=== PATIENT | female | born 1955 | race Caucasian/White ===

== ENCOUNTER 2017-09-16 11:19 | Outpatient (RCR) | payer MEDICARE, MEDICAID, SELFPAY | END 2017-10-16 | LOC: INF 11:19 | PROVIDERS: PCP Nurse Practitioner Family; Visit Provider Internal Medicine | DX: D50.9 Iron deficiency anemia, unspecified (principal) | CPT/HCPCS: 96365; 96366; J1756 ==

== ENCOUNTER 2017-12-24 13:51 | Outpatient (REF) | payer MEDICARE, MEDICAID, SELFPAY ==
[2017-12-24 19:04] LABS: Abs Immature Grans 0.01 k/cumm (0.0-0.09); Absolute Basophil Count 0.05 k/cumm (0.0-0.2); Absolute Eosinophil Count 0.14 k/cumm (0.0-0.7); Absolute Lymphocyte Count 2.21 k/cumm (1.2-3.4); Absolute Neutrophil Count 4.32 k/cumm (1.2-6.7); Basophils % 0.7; Eosinophils % 1.9; HCT 43.9 % (36.0-46.0); HGB 14.7 g/dL (12.0-15.5); Immature Grans % 0.1; Lymphocytes % 30.2; Mean Corp. HGB Concentration 33.5 g/dL (32.0-36.0); Mean Corpuscular Hemoglobin 30.5 pg (27.0-33.0); Mean Corpuscular Volume 91.1 fL (80-95); Monocytes % 8.2; Neutrophils % 58.9; Platelet Count 365 x1000/uL (130-400); RBC 4.82 m/cumm (4.00-5.20); White Blood Cell Count 7.33 k/cumm (4.4-10.8)
[2017-12-24 19:21] LABS: Iron 71 ug/dL (50-175); Total Iron Binding Capacity 391 ug/dL (250-450); Transferrin Sat 18 % (15-50)
== END 2017-12-24 14:11 ==
LOC: NCHCN 13:51
PROVIDERS: PCP Nurse Practitioner Family; Visit Provider Nurse Practitioner Family
DX: D64.9 Anemia, unspecified (principal); R71.8 Other abnormality of red blood cells
CPT/HCPCS: 83540; 83550; 85025

== ENCOUNTER 2018-03-25 16:12 | Outpatient (REF) | payer MEDICARE, MEDICAID, SELFPAY ==
[2018-03-25 18:19] LABS: Iron 32 ug/dL (50-175); Total Iron Binding Capacity 464 ug/dL (250-450); Transferrin Sat 7 % (15-50)
[2018-03-25 18:26] LABS: Abs Immature Grans 0.01 k/cumm (0.0-0.09); Absolute Basophil Count 0.04 k/cumm (0.0-0.2); Absolute Eosinophil Count 0.13 k/cumm (0.0-0.7); Absolute Lymphocyte Count 2.39 k/cumm (1.2-3.4); Absolute Monocyte Count 0.87 k/cumm (0.11-0.7); Absolute Neutrophil Count 4.89 k/cumm (1.2-6.7); Basophils % 0.5; Eosinophils % 1.6; HCT 38.9 % (36.0-46.0); HGB 12.2 g/dL (12.0-15.5); Immature Grans % 0.1; Lymphocytes % 28.7; Mean Corp. HGB Concentration 31.4 g/dL (32.0-36.0); Mean Corpuscular Hemoglobin 28.3 pg (27.0-33.0); Mean Corpuscular Volume 90.3 fL (80-95); Mean Platelet Volume 10.1 fL (8.0-11.0); Monocytes % 10.4; Neutrophils % 58.7; Platelet Count 411 x1000/uL (130-400); RBC 4.31 m/cumm (4.00-5.20); RBC Distribution Width 13.6 % (11.7-14.6); White Blood Cell Count 8.33 k/cumm (4.4-10.8)
[2018-03-25 18:33] LABS: Ferritin 9 ng/mL (8-388)
== END 2018-03-25 16:32 ==
LOC: NCHCN 16:12
PROVIDERS: PCP Nurse Practitioner Family; Visit Provider Nurse Practitioner Family
DX: D64.9 Anemia, unspecified (principal)
CPT/HCPCS: 82728; 83540; 83550; 85025

== ENCOUNTER 2018-04-13 13:37 | Outpatient (CLI) | payer MEDICARE, MEDICAID, SELFPAY ==
--- NOTE | 2018-04-13 13:36 | DI.RAD_ITS ---
SYMPTOMS/DIAGNOSIS: SHORTNESS OF BREATH, R06.02 CHEST X-RAY, PA AND LATERAL: Comparison is 02/03/17. The heart size and pulmonary vasculature are within normal limits. There is a hiatal hernia present. The lungs are clear. No effusions or pneumothoraces are identified. Mild degenerative changes are seen in the spine. IMPRESSION: No acute pulmonary process.
== END 2018-04-13 13:57 ==
PROVIDERS: PCP Nurse Practitioner Family; Visit Provider Nurse Practitioner Family
DX: R06.02 Shortness of breath (principal); K44.9 Diaphragmatic hernia without obstruction or gangrene
CPT/HCPCS: 71046

== ENCOUNTER 2018-04-19 01:09 | Outpatient (CLI) | payer MEDICARE, MEDICAID, SELFPAY ==
--- NOTE | 2018-04-19 15:32 | DI.MAMMO_ITS ---
SYMPTOM/DIAGNOSIS: SCREENING, Z12.39 MAMMOGRAMS: Mammograms were interpreted according to the usual protocol including computer analysis with CAD system, tomosynthesis and C view imaging. Comparison is made with 2017. The breasts are composed of heterogeneously dense fibroglandular tissue, breast density, Category C. A biopsy marker clip is seen in the medial right breast. No suspicious masses or suspicious microcalcifications are seen. There has been no significant change. IMPRESSION: Category 1, negative mammogram. Yearly screening mammography is recommended. [facility] ASSESSMENT OF FINDINGS: Negative. Category 1. Patient will receive a letter notifying them of these results. Bi-RADS category C. The breasts are heterogeneously dense, which may obscure small masses.
== END 2018-04-19 01:29 ==
PROVIDERS: PCP Nurse Practitioner Family; Visit Provider Nurse Practitioner Family
DX: Z12.31 Encounter for screening mammogram for malignant neoplasm of breast (principal)
CPT/HCPCS: 77063; 77067

== ENCOUNTER 2018-05-04 01:41 | Outpatient (RCR) | payer MEDICARE, MEDICAID, SELFPAY ==
[2018-04-20] MEDS: Normal Saline Flush 10 ML SYR IVP (11:42)
[2018-04-27] MEDS: Normal Saline Flush 10 ML SYR IVP (12:12)
[2018-05-04] MEDS: Normal Saline Flush 10 ML SYR IVP (12:03)
== END 2018-05-16 23:59 | disposition home or self-care (01) ==
LOC: INF 01:41
PROVIDERS: PCP Nurse Practitioner Family; Visit Provider Internal Medicine
DX: D50.9 Iron deficiency anemia, unspecified (principal)
CPT/HCPCS: 96365; 96366; J1756

== ENCOUNTER 2018-06-07 00:32 | Outpatient (CLI) | payer MEDICARE, MEDICAID, SELFPAY ==
--- NOTE | 2018-06-07 10:22 | DI.CT_ITS ---
SYMPTOM/DIAGNOSIS:HIATAL HERNIA, RECENT PNEUMONIA, PREOP FOR HERNIA REPAIR, IRON DEFICIENCY DUE TO BLOOD LOSS, D50.0,K21.9,K44.9 CHEST/ABDOMEN CT: There are no prior comparison exams. Images were performed from the clavicles through the aortic bifurcation after IV and oral contrast. There is a moderate sized hiatal hernia with approximately one third of the fundus of the stomach extending above the diaphragm. The heart size is normal. No pleural or pericardial effusions or adenopathy is seen. There are vague ground glass opacities seen mainly in the right upper and middle lobes which could represent residual pneumonia. No areas of consolidation or atelectasis is seen. No suspicious masses are identified. There is mild atelectasis in the left lower lobe medially. The liver, gallbladder, spleen, pancreas, adrenals and kidneys are unremarkable. There is a small amount of fat at the umbilicus. There is moderate to increased stool in the colon. No bowel dilatation or ascites is seen. There are degenerative changes in the mid thoracic spine. IMPRESSION: 1. Moderate sized hiatal hernia. 2. Ground glass opacities mainly in the right upper and middle lobes may represent residual pneumonitis.
[2018-06-07] MEDS: Omnipaque 350 MG/ML 100 ML BTL IJ (10:24)
== END 2018-06-07 00:52 ==
PROVIDERS: PCP Nurse Practitioner Family; Visit Provider Thoracic Surgery (Cardiothoracic Vascular Surgery)
DX: K44.9 Diaphragmatic hernia without obstruction or gangrene (principal); D50.0 Iron deficiency anemia secondary to blood loss (chronic); J18.9 Pneumonia, unspecified organism; J98.4 Other disorders of lung
CPT/HCPCS: 71260; 74160; J3490

== ENCOUNTER 2018-12-05 21:14 | Observation (INO) | payer MEDICARE, MEDICAID, SELFPAY ==
[2018-12-05 21:17] VITALS: BP 154/112; PULSE 122; RESP 18; TEMP 37.2; O2SAT 94
[2018-12-05 21:41] LABS: Abs Immature Grans 0.06 k/cumm (0.0-0.09); Absolute Basophil Count 0.03 k/cumm (0.0-0.2); Absolute Eosinophil Count 0.07 k/cumm (0.0-0.7); Absolute Monocyte Count 1.01 k/cumm (0.11-0.7); Absolute Neutrophil Count 13.95 k/cumm (1.2-6.7); Basophils % 0.2; Eosinophils % 0.4; HCT 43.1 % (36.0-46.0); HGB 14.8 g/dL (12.0-15.5); Immature Grans % 0.4; Mean Corp. HGB Concentration 34.3 g/dL (32.0-36.0); Mean Corpuscular Hemoglobin 31.2 pg (27.0-33.0); Mean Corpuscular Volume 90.9 fL (80-95); Mean Platelet Volume 9.2 fL (8.0-11.0); Monocytes % 6.1; Neutrophils % 83.9; Platelet Count 348 x1000/uL (130-400); RBC 4.74 m/cumm (4.00-5.20); White Blood Cell Count 16.63 k/cumm (4.4-10.8)
[2018-12-05 21:54] LABS: ALT 22 U/L (14-59); AST 17 U/L (15-37); Albumin 4.4 g/dL (3.4-5.0); Alkaline Phosphatase 145 U/L (46-116); Anion Gap 11.6 mmol/L (3-11); BUN 15 mg/dL (7-18); Bilirubin, Total 0.7 mg/dL (0.2-1.0); CO2 26.4 mmol/L (21.0-32.0); CREATININE 1.27 mg/dL (0.55-1.02); Calcium 9.8 mg/dL (8.5-10.1); Chloride 98 mmol/L (98-107); Estimated GFR 42.23 (mL/min/1.73m2); Glucose 154 mg/dL (70-100); Lipase 78 U/L (73-393); Potassium 3.7 mmol/L (3.5-5.1); Sodium 136 mmol/L (136-145); Total Protein 8.6 g/dL (6.4-8.2)
[2018-12-05 21:57] LABS: Troponin I < 0.05 ng/mL (0.00-0.06)
--- NOTE | 2018-12-05 21:59 | ED.GENADUL_ITS ---
Discharge Plan Disposition Patient Disposition: [facility] INPATIENT Condition: Improving Discharge Details Chief Complaint: Abd Prob Clinical Impression: Acute vomiting, Dehydration, Acute kidney injury Admit Date/Time: 12/06/18 00:38 Admit Provider: Papito Sandoval Attending Provider: Papito Sandoval Primary Care Provider: Diane Mendez ED Provider: Jessica Delgado Discharge Data Discharge Date/Time-TO BE ENTERED AT DEPARTURE: 12/06/18 01:20 Medical Decision Making This very pleasant 63-year-old woman who presents for complaints of nausea and dry heaving for the last 3 days having difficulty holding down food and fluids. Patient reports in June she had a hiatal hernia repair in addition to a distal stomach dilation for nausea and vomiting complaints. Patient reports this is different than her nausea and vomiting she experienced prior to surgery where as she was vomiting significant bilious vomitus. In the last 3 days she has been primarily dry heaving and having nausea. Patient does report mild chills and flushed sensation but no measured fever. Patient denies any identifiable pain in her chest or abdomen. Denies back pain, dizziness. Patient does report mild constipation for the last 3 days which is atypical compared to her regular daily bowel movements. Patient has taken to doses of Zofran today without relief of nausea. Patient was provided Reglan for nausea IV as well as IV fluid as she does appear quite dry on exam. Patient has mild upper abdominal pain with palpation but no obvious peritoneal signs associated. CT scan ordered as well as lab work. Urinalysis ordered, troponins ordered. Initial EKG reveals a sinus rhythm with a rate of [address] segment changes. This was reviewed with my attending Dr. Young. Initial troponin negative. Feel cardiac cause of her pain is unlikely as she has no typical cardiac symptoms at this time. Patient CT scan ultimately reveals moderate to severe left hydronephrosis with decreased enhancement compared to the contralateral kidney, patient does have a change in her baseline kidney function. Creatinine has increased from 0.85 to 1.27, GFR greater than 60 has decreased to 42. Patient has no significant postvoid residual on bladder scanning. Urinalysis unremarkable for any acute infection. Possibly patient's kidney changes are secondary to dehydration in the last 3 days resulting in acute kidney injury. CT also reveals hiatal hernia present. Patient did have a moderate-sized hiatal hernia on previous CT which was repaired in June. Patient is somewhat concerned that the vomiting in the last 3 days has increased her hiatal hernia which was previously repaired. Patient does feel significantly improved after Reglan. She did receive 2 L of IV fluid. Discussed admission to the hospital for concern of acute kidney injury, dehydration and hydronephrosis versus outpatient follow-up for findings given she has improved. Patient's preference is admission to the hospital at this time which I do not feel is unreasonable to monitor kidney function. Spoke with the hospitalist will accept patient's admission for observation overnight. HPI General Date/Time Provider Initiated Documentation: 12/05/18 21:16 . HPI Narrative: This is 63-year-old patient who is very pleasant complaining of nausea for the last 3 days which is been intermittent. She does have a prescription for Zofran which she is been using twice daily without relief of her nausea. Patient also trying [id number] medication without relief. Reports mild headache without dizziness. History of migraines. She does report mild flushing and chills denies measured fever. Patient does report when she attempts to eat and drink she does have dry heaving episodes but denies bilious vomitus. Reports having difficulty holding any food down for the last 3 days. Feeling dehydrated. Patient denies chest pain. She does report mild shortness of breath when laying up. Denies back pain. Denies abdominal pain. Patient does report mild constipation and decrease in bowel movements in the last 3 days. She does admit to small hard stools 3 days ago. Denies abdominal distention. Denies urinary urgency, frequency or dysuria. Patient reports similar episodes of 3 to 4 days of nausea which was similar but resolved on its own without any intervention was never evaluated. Related Data Home Medications Medication Instructions Recorded Confirmed Atorvastatin Calcium 20 mg PO HS tab-cap 12/17/16 12/06/18 Multi-Day Plus Minerals 1 ea PO DAILY 12/17/16 12/06/18 buspirone 20 mg PO HS tab-cap 12/17/16 12/06/18 calcium carbonate-vitamin D3 1 ea PO DAILY 12/17/16 12/06/18 [Calcium 500 + D] clonazepam 1 mg PO BID tab-cap 12/17/16 12/06/18 glucosam-chond im-izofmr-il ac 1 ea PO DAILY 12/17/16 12/06/18 olanzapine 10 mg PO HS tab-cap 12/17/16 12/06/18 omega-3 fatty acids-fish oil 1 ea PO DAILY 12/17/16 12/06/18 venlafaxine 225 mg PO HS tab-cap 12/17/16 12/06/18 amitriptyline 20 mg PO HS 02/03/17 12/06/18 cyclobenzaprine 10 mg PO TID PRN #8 tab 02/19/17 12/06/18 ondansetron 4 mg PO Q8H PRN 12/06/18 12/06/18 Previous Rx's Medication Instructions Recorded cyclobenzaprine 10 mg PO TID PRN #8 tab 02/19/17 Allergies Allergy/AdvReac Type Severity Reaction Status Date / Time trazodone AdvReac Mild WIRED Unverified 12/05/18 22:01 General Stated Complaint: Abd Prob EBONY: 3 Review of Systems Review of Systems ROS Unobtainable: All systems reviewed & are unremarkable except as noted in HPI and below Constitutional Constitutional: Reports chills, Denies headache(s) and Reports poor appetite ENT Ears, Nose, Mouth, and Throat: Denies headache(s) Cardiovascular Cardiovascular: Denies dyspnea Respiratory Respiratory: Denies cough, Denies pain with cough, Denies dyspnea and Denies wheezing Gastrointestinal Gastrointestinal: Denies abdominal pain, Denies bloating, Reports constipation, Denies excessive flatus, Denies diarrhea, Reports nausea and Reports vomiting Genitourinary Genitourinary: Denies urinary frequency, Denies dysuria and Denies urinary urgency Neurologic Neurologic: Denies headache(s) Allergic/Immunologic Allergic/Immunologic: Denies wheezing [facility] History Anemia Anxiety Benign tumor of pituitary gland Chronic vomiting Depression GERD (gastroesophageal reflux disease) Grief reaction History of hepatitis History of HPV infection History of Lyme disease Hyperlipidemia Joint pain Low back pain Neck pain PTSD (post-traumatic stress disorder) Shortness of breath Surgical History EGD - MAC (01/13/17) Social History Smoking/Tobacco Use Status: Former Tobacco Use Alcohol Intake: current Alcohol Intake frequency: holidays/special occasions only Alcohol type: beer Drug use: Never Substance use type: does not use Do you feel safe at home: Yes Do you feel safe in your relationship?: Yes Exam Narrative Exam Narrative: CONST: Healthy appearing patient, in no acute distress. Dry mucous membranes. Alert and alert. CHEST: Normal insepection of the chest. RESP: Normal respiratory effort. Speaking full sentences. No cough. No audible wheezing. No retractions. Breath sounds equal and full bilaterally. No rhonchi, rales or wheezing. CARDIO: No JVD. No murmurs or rubs. Regular rate and rhythm. Abdomen; abdomen is soft. Bowel sounds present in all 4 quadrants mild left upper quadrant tenderness. No obvious rebound or guarding. No peritoneal signs. Back; no CVA tenderness bilaterally NEURO: Alert and awake. Speech clear. PSYCH: Normal affect. Cooperative. Course Vital Signs Vital signs: Vital Signs Temperature 37.2 C 12/05/18 21:17 Pulse 122 H 12/05/18 21:17 Respiratory Rate 18 12/05/18 21:17 Blood Pressure 154/112 H 12/05/18 21:17 Pulse Oximetry 94 L 12/05/18 21:17 Temperature 37.2 C 12/05/18 21:17 Temperature Source Skin 12/05/18 21:17 Pulse 122 H 12/05/18 21:17 Respiratory Rate 18 12/05/18 21:17 Blood Pressure 154/112 H 12/05/18 21:17 Blood Pressure Position Sitting 12/05/18 21:17 Pulse Oximetry 94 L 12/05/18 21:17 Oxygen Delivery Method Room Air 12/05/18 21:17 Oxygen Flow Rate 0 12/05/18 21:17 Pain Level 1 12/05/18 21:17 Comment 12/05/18 21:17 Lab/Test Results Lab/Test Results: Laboratory Tests Range/Units 12/05/18 12/05/18 12/05/18 21:35 21:35 21:35 WBC (4.4-10.8) k/cumm 16.63 H RBC (4.00-5.20) m/cumm 4.74 Hgb (12.0-15.5) g/dL 14.8 Hct (36.0-46.0) % 43.1 MCV (80-95) fL 90.9 MCH (27.0-33.0) pg 31.2 MCHC (32.0-36.0) g/dL 34.3 RDW (11.7-14.6) % 13.0 Plt Count (130-400) x1000/uL 348 MPV (8.0-11.0) fL 9.2 Immature Gran % 0.4 Neutrophils % 83.9 Lymphocytes % 9.0 Monocytes % 6.1 Eosinophils % 0.4 Basophils % 0.2 Absolute Neutrophils (1.2-6.7) k/cumm 13.95 H Absolute Lymphocytes (1.2-3.4) k/cumm 1.50 Absolute Monocytes (0.11-0.7) k/cumm 1.01 H Absolute Eosinophils (0.0-0.7) k/cumm 0.07 Absolute Basophils (0.0-0.2) k/cumm 0.03 Sodium (136-145) mmol/L 136 Potassium (3.5-5.1) mmol/L 3.7 Chloride (98-107) mmol/L 98 Carbon Dioxide (21.0-32.0) mmol/L 26.4 Anion Gap (3-11) mmol/L 11.6 H BUN (7-18) mg/dL 15 Creatinine (0.55-1.02) mg/dL 1.27 H Estimated GFR/1.73 m2 (mL/min/1.73m2) 42.23 Glucose (70-100) mg/dL 154 H Calcium (8.5-10.1) mg/dL 9.8 Total Bilirubin (0.2-1.0) mg/dL 0.7 AST (15-37) U/L 17 ALT (14-59) U/L 22 Alkaline Phosphatase (46-116) U/L 145 H Troponin I (0.00-0.06) ng/mL < 0.05 Total Protein (6.4-8.2) g/dL 8.6 H Albumin (3.4-5.0) g/dL 4.4 Lipase (73-393) U/L 78
[2018-12-05] MEDS: Metoclopramide 10 MG/2 ML VIAL (22:09)
[2018-12-05] MEDS: Normal Saline 1,000 ML 1000 ML IV ×2 (22:09→22:49)
[2018-12-05] MEDS: Omnipaque 350 MG/ML 100 ML BTL IJ (22:17)
[2018-12-05] MEDS: Normal Saline Flush 10 ML SYR IVP (22:19)
--- NOTE | 2018-12-05 22:20 | DI.CT_ITS ---
EXAM: CT ABDOMEN PELVIS W CLINICAL HISTORY: vomitting s/p surgery on stomach in june. TECHNIQUE: The study was carried out according to the usual protocol with an intravenous administra tion of 100 cc of Omnipaque 350. COMPARISON: CT CHEST/ABD W from 06/07/2018 FINDINGS: A small axial hiatus hernia is demonstrated. New subcentimeter densities are identified in the dist al esophagus. The liver is unremarkable save for the presence of 2 small areas of diminished absorpt ion that are too small to characterize. Gallbladder is minimally distended. No stones are seen. The pancreas, spleen and adrenals are unremarkable. Compared with the previous examination, the left hyd ronephrosis has increased. The possibility of compressing vessel at the ureteropelvic junction is ra ised. There is no evidence of ureteral dilatation. There is diminished prominence of the left renal p arenchyma. No renal or ureteral calculi are seen. There is no evidence of bowel obstruction. There i s nothing to suggest an acute appendix. No evidence of free air or free fluid in the intraperitoneal space. There is no evidence of abdominal aortic aneurysm. There is no evidence of a mass or lympha denopathy. Bladder is unremarkable. Note is made of uterine retroversion. No acute bony abnormality is seen. Note is made of mild anterior subluxation of L5 on S1. Mild degenerative changes involvin g multiple levels in the spine. There is a fat containing wall hernia. IMPRESSION: Moderate to severe left hydronephrosis possibly due to a crossing compressing vessel. Hiatus hernia i dentified. Radiopacities in the distal esophagus could represent surgical material. Multiple small-bowel loops containing low-density fluid with a few loops demonstrating questionable w all thickening is identified. There may also be small regions of wall thickening at several regions i n the colon, these findings likely related to nondistention. The possibility of enterocolitis could n ot be entirely excluded. Note is also made of an enlarged spleen.
--- NOTE | 2018-12-05 22:59 | DI.VRAD_ITS ---
Addendum created by Ruiz Kuhn DO on 12/06/2018 12:49:47 AM EDT As noted in initial report, left hydronephrosis has increased over the interval, compared to prior study 06/07/2018. Hiatal hernia is smaller. Radiopacities seen about the distal esophagus are not present on the prior study. Initial report created on 12/05/2018 10:58:48 PM EDT PROCEDURE INFORMATION: Exam: CT Abdomen And Pelvis With Contrast Exam date and time: 12/05/2018 9:34 PM Clinical history: 63 years old, female; Nausea and vomiting TECHNIQUE: Imaging protocol: Computed tomography of the abdomen and pelvis with intravenous contrast. Contrast material: OMNNI 350; Contrast volume: 100 ml; Contrast route: RIGHT AC; COMPARISON: CT CHEST/ABD W 06/07/2018 9:50 AM FINDINGS: Mediastinum: Hiatal hernia. New subcentimeter radiopacities about distal esophagus. Liver: Lesion too small to characterize in the liver. No mass. Liver is normal in size. Gallbladder and bile ducts: Minimally distended gallbladder. Pancreas: Normal. No ductal dilation. Spleen: Normal. No splenomegaly. Adrenals: Normal. No mass. Kidneys and ureters: Left hydronephrosis has increased over the interval, possibly due to crossing, compressing vessel at ureteropelvic junction. No left hydroureter. Delayed, diminished enhancement of left renal parenchyma. No radiopaque renal, ureteric or bladder calculi. Stomach and bowel: Unremarkable. No obstruction. No mucosal thickening. Appendix: No evidence of appendicitis. Intraperitoneal space: Unremarkable. No free air. No significant fluid collection. Vasculature: Unremarkable. No abdominal aortic aneurysm. Lymph nodes: Unremarkable. No enlarged lymph nodes. Bladder: Unremarkable as visualized. Reproductive: Retroverted uterus. Bones/joints: Unremarkable. No acute fracture. Mild anterior subluxation of L5 on S1.The spine demonstrates mild degenerative changes at multiple levels. Soft tissues: There is an uncomplicated fat-containing umbilical hernia. IMPRESSION: 1. Moderate to severe left hydronephrosis, possibly due to crossing, compressing vessel. 2. Hiatal hernia. 3. New radiopacities about distal esophagus could represent surgical material. Dictated and Authenticated by: Ruiz Kuhn MD. Ordering:SUKHDEEP Lopez MD
[2018-12-05 23:16] LABS: Bilirubin Negative (Negative); Blood Negative (Negative); Clarity Sl Cloudy (Clear); Glucose Negative (Negative); Ketones Negative (Negative); Leukocyte Esterase Negative (Negative); Nitrite Negative (Negative); Urobilinogen 0.2 EU/dL (Up TO 0.2)
[2018-12-05 23:44] VITALS: BP 162/93; PULSE 88; O2SAT 97
[2018-12-06] VITALS (10 sets, daily range): BP systolic 133–162; BP diastolic 85–100; PULSE 82–95; RESP 16–20; TEMP 36.7–37.3; O2SAT 95–98
--- NOTE | 2018-12-06 00:49 | W.PM.HP.N ---
Date of service: 12/06/18 Time of Service: 00:50 Assessment and Plan Assessment and plan (1) CHRISTIANO (acute kidney injury): Start date: 12/05/18 Status: Acute Assessment and plan: This is a 63-year-old lady who recently has had poor intake because of dry heaves with some chills with no fever and no complaints or other GI complaints such as diarrhea but does have some constipation. She does have chronic GI complaints. Because of her fluid loss and poor intake she has acute kidney injury and was admitted to observation for IV hydration and bowel rest. (2) Hydronephrosis: Status: Acute Assessment and plan: This was a incidental finding with no symptoms. Patient has no history of renal stones or problems with her kidneys. There is a pending urine culture with cloudy urine. I will give her 1 dose of Rocephin with urological evaluation in the morning. Antibiotics may not need to be extended. Qualifiers: Hydronephrosis type: unspecified Qualified Code(s): N13.30 - Unspecified hydronephrosis (3) Emesis, persistent: Start date: 12/05/18 Status: Acute Assessment and plan: The patient has a long history of GI symptoms and should follow-up with GI at [facility] with 2 episodes status post surgical repair of her hiatal hernia. She may simply have a viral gastroenteritis but has only the emesis and nausea. Her previous episode after her surgery when she was visiting her son may also have been a viral illness with similar presentation. History of Present Illness History of Present Illness Chief Complaint: Persistent vomiting with dry heaves Narrative: This is a 63-year-old lady admitted for dehydration secondary to persistent vomiting with dry heaves over the last 3 days. She is status post hiatal hernia repair and may this last year with dilatation of the distal stomach bilious emesis prior to that procedure. Since then she has had some mild nausea with dry heaves once before this time. She persisted for the last 3 days with loss of fluid from poor intake with her nausea and vomiting and in the ED was found to have acute kidney injury requiring IV fluid resuscitation. Imaging did reveal a left hydronephrosis with a urine culture pending and cloudy urine but otherwise negative UA. She has had no fever but chills with mild flushing. She has had no diarrhea. Her other most recent similar episode was when she was traveling and possibly exposed to a virus. The patient denied any flank pain or chest pain. She did state that she was not moving her bowels well for the last 3 days. She denies bloating or abdominal pain. She has had no complaints. She has previously been seen by GI at [facility] but not recently. Her past history is significant for reflux disease and anxiety. Review of Systems Review of Systems Narrative: 13 point review of systems otherwise unrevealing or stable. [facility] Medical History Anemia Anxiety Benign tumor of pituitary gland Chronic vomiting Depression GERD (gastroesophageal reflux disease) Grief reaction History of hepatitis History of HPV infection History of Lyme disease Hyperlipidemia Joint pain Low back pain Neck pain PTSD (post-traumatic stress disorder) Shortness of breath Surgical History EGD - MAC (01/13/17) Social History Smoking/Tobacco Use Status: Former Tobacco Use Alcohol Intake: current Alcohol Intake frequency: holidays/special occasions only Alcohol type: beer Drug use: Never Substance use type: does not use Do you feel safe at home: Yes Do you feel safe in your relationship?: Yes Meds Home Medications and Allergies Home Medications Medication Instructions Recorded Confirmed Type Atorvastatin Calcium 20 mg PO HS tab-cap 12/17/16 12/06/18 History Multi-Day Plus Minerals 1 ea PO DAILY 12/17/16 12/06/18 History buspirone 20 mg PO HS tab-cap 12/17/16 12/06/18 History calcium carbonate-vitamin D3 1 ea PO DAILY 12/17/16 12/06/18 History [Calcium 500 + D] clonazepam 1 mg PO BID tab-cap 12/17/16 12/06/18 History glucosam-chond yc-anphtn-bf ac 1 ea PO DAILY 12/17/16 12/06/18 History olanzapine 10 mg PO HS tab-cap 12/17/16 12/06/18 History omega-3 fatty acids-fish oil 1 ea PO DAILY 12/17/16 12/06/18 History propranolol 20 mg PO BID 12/17/16 08/27/17 History venlafaxine 225 mg PO DAILY tab-cap 12/17/16 12/06/18 History amitriptyline 20 mg PO HS 02/03/17 12/06/18 History pantoprazole 40 mg PO BID #60 tabcr 02/06/17 08/27/17 Rx sucralfate 1 g PO AC & HS #120 tab-cap 02/06/17 08/27/17 Rx cyclobenzaprine 10 mg PO TID PRN #8 tab 02/19/17 12/06/18 Rx Allergies Allergy/AdvReac Type Severity Reaction Status Date / Time trazodone AdvReac Mild WIRED Unverified 12/05/18 22:01 Exam Narrative Exam Narrative: General: Patient is mildly distressed and anxious with flattened affect but good eye contact. She is alert and oriented x3. She is comfortable lying flat in bed. HEENT: Normocephalic with eyes revealing pupils equal and reactive to light symmetrically, extraocular movement intact and sclera anicteric. Ears normal. Oropharynx with slightly dry oral mucosa. Neck: Supple without JVD. Back: Stooped posture with no CVA tenderness. Lungs: Clear to auscultation and percussion. Heart: Regular rate and rhythm with no appreciable murmur. Breast: Exam deferred. Abdomen: Slightly protuberant, nontender and soft with distant bowel sounds present in all quadrants. No tenderness or palpable hepatosplenomegaly. Rectal/: Exam deferred. Extremities: Without clubbing cyanosis or edema. Joints have fair range of motion. Skin: Warm and dry without rashes. Neuro: Nerves II through XII grossly intact with no focalizing motor deficits. Results Imaging Imaging Studies: Exam(s) PROCEDURE INFORMATION: Exam: CT Abdomen And Pelvis With Contrast Exam date and time: 12/05/2018 9:34 PM Clinical history: 63 years old, female; Nausea and vomiting TECHNIQUE: Imaging protocol: Computed tomography of the abdomen and pelvis with intravenous contrast. Contrast material: OMNNI 350; Contrast volume: 100 ml; Contrast route: RIGHT AC; COMPARISON: CT CHEST/ABD W 06/07/2018 9:50 AM FINDINGS: Mediastinum: Hiatal hernia. New subcentimeter radiopacities about distal esophagus. Liver: Lesion too small to characterize in the liver. No mass. Liver is normal in size. Gallbladder and bile ducts: Minimally distended gallbladder. Pancreas: Normal. No ductal dilation. Spleen: Normal. No splenomegaly. Adrenals: Normal. No mass. Kidneys and ureters: Left hydronephrosis has increased over the interval, possibly due to crossing, compressing vessel at ureteropelvic junction. No left hydroureter. Delayed, diminished enhancement of left renal parenchyma. No radiopaque renal, ureteric or bladder calculi. Stomach and bowel: Unremarkable. No obstruction. No mucosal thickening. Appendix: No evidence of appendicitis. Intraperitoneal space: Unremarkable. No free air. No significant fluid collection. Vasculature: Unremarkable. No abdominal aortic aneurysm. Lymph nodes: Unremarkable. No enlarged lymph nodes. Bladder: Unremarkable as visualized. Reproductive: Retroverted uterus. Bones/joints: Unremarkable. No acute fracture. Mild anterior subluxation of L5 on S1.The spine demonstrates mild degenerative changes at multiple levels. Soft tissues: There is an uncomplicated fat-containing umbilical hernia. IMPRESSION: 1. Moderate to severe left hydronephrosis, possibly due to crossing, compressing vessel. 2. Hiatal hernia. 3. New radiopacities about distal esophagus could represent surgical material. Dictated and Authenticated by: Ruiz Kuhn MD. Labs Result diagrams: 12/05/18 21:35 12/05/18 21:35 Labs: Laboratory Results - last 24 hr 12/05/18 12/05/18 12/05/18 21:35 21:35 21:35 WBC 16.63 H RBC 4.74 Hgb 14.8 Hct 43.1 MCV 90.9 MCH 31.2 MCHC 34.3 RDW 13.0 Plt Count 348 MPV 9.2 Immature Gran % 0.4 Neutrophils % 83.9 Lymphocytes % 9.0 Monocytes % 6.1 Eosinophils % 0.4 Basophils % 0.2 Absolute Neutrophils 13.95 H Absolute Lymphocytes 1.50 Absolute Monocytes 1.01 H Absolute Eosinophils 0.07 Absolute Basophils 0.03 Sodium 136 Potassium 3.7 Chloride 98 Carbon Dioxide 26.4 Anion Gap 11.6 H BUN 15 Creatinine 1.27 H Estimated GFR/1.73 m2 42.23 Glucose 154 H Calcium 9.8 Total Bilirubin 0.7 AST 17 ALT 22 Alkaline Phosphatase 145 H Troponin I < 0.05 Total Protein 8.6 H Albumin 4.4 Lipase 78 Urine Color Urine Clarity Urine pH Ur Specific [place] Urine Protein Urine Ketones Urine Blood Urine Nitrite Urine Bilirubin Urine Urobilinogen Ur Leukocyte Esterase Urine Glucose 12/05/18 23:13 WBC RBC Hgb Hct MCV MCH MCHC RDW Plt Count MPV Immature Gran % Neutrophils % Lymphocytes % Monocytes % Eosinophils % Basophils % Absolute Neutrophils Absolute Lymphocytes Absolute Monocytes Absolute Eosinophils Absolute Basophils Sodium Potassium Chloride Carbon Dioxide Anion Gap BUN Creatinine Estimated GFR/1.73 m2 Glucose Calcium Total Bilirubin AST ALT Alkaline Phosphatase Troponin I Total Protein Albumin Lipase Urine Color Yellow Urine Clarity Sl cloudy Urine pH 7.0 Ur Specific [place] 1.010 Urine Protein Negative Urine Ketones Negative Urine Blood Negative Urine Nitrite Negative Urine Bilirubin Negative Urine Urobilinogen 0.2 Ur Leukocyte Esterase Negative Urine Glucose Negative Last Vital Signs Temp 37.2 C 12/05/18 21:17 Pulse 88 12/05/18 23:44 Resp 18 12/05/18 21:17 BP 162/93 H 12/05/18 23:44 Pulse Ox 97 12/05/18 23:44
[2018-12-06] MEDS: Normal Saline Flush 10 ML SYR IVP ×2 (01:53→08:38)
[2018-12-06] MEDS: Normal Saline 1,000 ML 150 ML IV ×2 (01:53→17:11)
[2018-12-06] MEDS: Heparin 5,000 UNITS/ML VIAL 5000 UNITS SC ×3 (01:53→18:01)
[2018-12-06] MEDS: Pantoprazole 40 MG VIAL IVP ×2 (01:53→08:38)
[2018-12-06] MEDS: cefTRIAXone 1 GM/50 ML BAG IVPB (01:54)
[2018-12-06] MEDS: clonazePAM 1 MG TAB PO ×3 (02:34→21:09)
[2018-12-06] MEDS: busPIRone 5 MG TAB 20 MG PO ×2 (02:35→22:00)
[2018-12-06] MEDS: Venlafaxine 37.5 MG CAPCR 225 MG PO ×2 (02:35→22:08)
[2018-12-06] MEDS: Atorvastatin 20 MG TAB PO ×2 (02:36→22:15)
[2018-12-06] MEDS: Amitriptyline 10 MG TAB 20 MG PO ×2 (02:36→22:15)
[2018-12-06] MEDS: OLANZapine 10 MG TAB PO ×2 (02:42→22:14)
[2018-12-06 07:26] LABS: ALT 15 U/L (14-59); AST 10 U/L (15-37); Albumin 3.4 g/dL (3.4-5.0); Alkaline Phosphatase 108 U/L (46-116); Anion Gap 9.4 mmol/L (3-11); BUN 11 mg/dL (7-18); Bilirubin, Total 0.5 mg/dL (0.2-1.0); CO2 25.6 mmol/L (21.0-32.0); CREATININE 1.06 mg/dL (0.55-1.02); Calcium 8.7 mg/dL (8.5-10.1); Chloride 107 mmol/L (98-107); Estimated GFR 52.03 (mL/min/1.73m2); Glucose 103 mg/dL (70-100); Potassium 3.4 mmol/L (3.5-5.1); Sodium 142 mmol/L (136-145); Total Protein 6.7 g/dL (6.4-8.2)
[2018-12-06 08:14] LABS: Abs Immature Grans 0.03 k/cumm (0.0-0.09); Absolute Basophil Count 0.04 k/cumm (0.0-0.2); Absolute Eosinophil Count 0.13 k/cumm (0.0-0.7); Absolute Lymphocyte Count 2.84 k/cumm (1.2-3.4); Absolute Monocyte Count 0.87 k/cumm (0.11-0.7); Basophils % 0.4; Eosinophils % 1.3; HCT 37.9 % (36.0-46.0); HGB 12.5 g/dL (12.0-15.5); Immature Grans % 0.3; Lymphocytes % 28.1; Mean Corpuscular Hemoglobin 30.8 pg (27.0-33.0); Mean Corpuscular Volume 93.3 fL (80-95); Mean Platelet Volume 9.9 fL (8.0-11.0); Monocytes % 8.6; Neutrophils % 61.3; Platelet Count 293 x1000/uL (130-400); RBC 4.06 m/cumm (4.00-5.20); White Blood Cell Count 10.09 k/cumm (4.4-10.8)
[2018-12-06 08:15] LABS: Absolute Neutrophil Count 6.19 k/cumm (1.2-6.7)
--- NOTE | 2018-12-06 08:26 | W.PM.PROGNOT ---
Date of Service Date of service: 12/06/18 Time of Service: 14:09 Subjective Subjective Interval history since last seen: NO n/v since arrival to floor. Constipated. Also, still thirsty. Still has only had clear liquids. Seen by urology today - no inpatient surgery is being planned; recommended to have outpatient nuclear renogram with lasix washout with urology follow up. VSS. No significant physical exam findings except dry mucuous membranes and decreased skin turgor. While the patient was cleared for discharge by urology, the patient is still dehydrated, has not had regular consistency food, remains constipated, and her creatinine is not yet back to baseline. I spoke with the patient about intensifying her diet, bowel regimen, and continuing IVF overnight with repeat bloodwork in am. We are anticipating discharge home tomorrow with outpatient nuclear renogram. Objective Objective Clinical Data: Abnormal lab results 12/05/18 12/05/18 12/06/18 Range/Units 21:35 21:35 06:05 WBC 16.63 H (4.4-10.8) k/cumm Absolute Neutrophils 13.95 H (1.2-6.7) k/cumm Absolute Monocytes 1.01 H (0.11-0.7) k/cumm Potassium 3.4 L (3.5-5.1) mmol/L Anion Gap 11.6 H (3-11) mmol/L Creatinine 1.27 H 1.06 H (0.55-1.02) mg/dL Glucose 154 H 103 H D (70-100) mg/dL AST 10 L (15-37) U/L Alkaline Phosphatase 145 H (46-116) U/L Total Protein 8.6 H (6.4-8.2) g/dL 12/06/18 Range/Units 06:05 WBC (4.4-10.8) k/cumm Absolute Neutrophils (1.2-6.7) k/cumm Absolute Monocytes 0.87 H (0.11-0.7) k/cumm Potassium (3.5-5.1) mmol/L Anion Gap (3-11) mmol/L Creatinine (0.55-1.02) mg/dL Glucose (70-100) mg/dL AST (15-37) U/L Alkaline Phosphatase (46-116) U/L Total Protein (6.4-8.2) g/dL Vital Signs Temperature 37.3 C 12/06/18 01:30 Temperature Source Temporal Artery Scan 12/06/18 01:30 Pulse 89 12/06/18 01:30 Respiratory Rate 16 12/06/18 01:30 Respiratory Effort Non-Labored 12/06/18 01:30 Respiratory Depth Normal 12/06/18 01:30 Respiratory Pattern Normal 12/06/18 01:30 Blood Pressure 156/90 H 12/06/18 01:30 Blood Pressure Mean 105 12/06/18 01:30 Blood Pressure Position Sitting 12/05/18 21:17 Pulse Oximetry 98 12/06/18 01:30 Oxygen Delivery Method Room Air 12/06/18 01:30 Oxygen Flow Rate 0 12/06/18 01:30 Pain Level 0 12/06/18 01:30 Comment 12/05/18 21:17 Intake & Output 12/05/18 12/05/18 12/06/18 11:59 23:59 11:59 Intake Total 1000 / 1000 1050 / 1050 Output Total 850 / 850 Balance 1000 / 1000 200 / 200 Weight 74.843 kg 74.4 kg Intake: IV 1000 / 1000 1050 / 1050 Output: Urine 850 / 850 Other: Urine Color Yellow Urine Appearance Clear Voiding Methods Bedside Commode Laboratory Results WBC 10.09 k/cumm (4.4-10.8) D 12/06/18 06:05 RBC 4.06 m/cumm (4.00-5.20) 12/06/18 06:05 Hgb 12.5 g/dL (12.0-15.5) D 12/06/18 06:05 Hct 37.9 % (36.0-46.0) 12/06/18 06:05 MCV 93.3 fL (80-95) 12/06/18 06:05 MCH 30.8 pg (27.0-33.0) 12/06/18 06:05 MCHC 33.0 g/dL (32.0-36.0) 12/06/18 06:05 RDW 13.0 % (11.7-14.6) 12/06/18 06:05 Plt Count 293 x1000/uL (130-400) 12/06/18 06:05 MPV 9.9 fL (8.0-11.0) 12/06/18 06:05 Immature Gran % 0.3 12/06/18 06:05 Neutrophils % 61.3 12/06/18 06:05 Lymphocytes % 28.1 12/06/18 06:05 Monocytes % 8.6 12/06/18 06:05 Eosinophils % 1.3 12/06/18 06:05 Basophils % 0.4 12/06/18 06:05 Absolute Neutrophils 6.19 k/cumm (1.2-6.7) 12/06/18 06:05 Absolute Lymphocytes 2.84 k/cumm (1.2-3.4) 12/06/18 06:05 Absolute Monocytes 0.87 k/cumm (0.11-0.7) H 12/06/18 06:05 Absolute Eosinophils 0.13 k/cumm (0.0-0.7) 12/06/18 06:05 Absolute Basophils 0.04 k/cumm (0.0-0.2) 12/06/18 06:05 Sodium 142 mmol/L (136-145) 12/06/18 06:05 Potassium 3.4 mmol/L (3.5-5.1) L 12/06/18 06:05 Chloride 107 mmol/L (98-107) 12/06/18 06:05 Carbon Dioxide 25.6 mmol/L (21.0-32.0) 12/06/18 06:05 Anion Gap 9.4 mmol/L (3-11) 12/06/18 06:05 BUN 11 mg/dL (7-18) 12/06/18 06:05 Creatinine 1.06 mg/dL (0.55-1.02) H 12/06/18 06:05 Estimated GFR/1.73 m2 52.03 (mL/min/1.73m2) 12/06/18 06:05 Glucose 103 mg/dL (70-100) H D 12/06/18 06:05 Calcium 8.7 mg/dL (8.5-10.1) 12/06/18 06:05 Total Bilirubin 0.5 mg/dL (0.2-1.0) 12/06/18 06:05 AST 10 U/L (15-37) L 12/06/18 06:05 ALT 15 U/L (14-59) 12/06/18 06:05 Alkaline Phosphatase 108 U/L (46-116) 12/06/18 06:05 Troponin I < 0.05 ng/mL (0.00-0.06) 12/05/18 21:35 Total Protein 6.7 g/dL (6.4-8.2) 12/06/18 06:05 Albumin 3.4 g/dL (3.4-5.0) 12/06/18 06:05 Lipase 78 U/L (73-393) 12/05/18 21:35 Urine Color Yellow (Yellow) 12/05/18 23:13 Urine Clarity Sl cloudy (Clear) 12/05/18 23:13 Urine pH 7.0 (5-8) 12/05/18 23:13 Ur Specific [place] 1.010 (1.005-1.025) 12/05/18 23:13 Urine Protein Negative mg/dL (Negative) 12/05/18 23:13 Urine Ketones Negative mg/dL (Negative) 12/05/18 23:13 Urine Blood Negative (Negative) 12/05/18 23:13 Urine Nitrite Negative (Negative) 12/05/18 23:13 Urine Bilirubin Negative (Negative) 12/05/18 23:13 Urine Urobilinogen 0.2 EU/dL (Up TO 0.2) 12/05/18 23:13 Ur Leukocyte Esterase Negative (Negative) 12/05/18 23:13 Urine Glucose Negative mg/dL (Negative) 12/05/18 23:13
--- NOTE | 2018-12-06 08:32 | PDOC.CMIN ---
- If Service Date Differs Date of service: 12/06/18 Time of Service: 08:32 Care Management Initial Assess REASON FOR HOSPITALIZATION:: CHRISTIANO, Hydronephrosis, intractible emesis PAST MEDICAL HISTORY/PAST SURGICAL HISTORY:: DJD, Anxiety, Depression, GERD, Gastritis, Hypertension, Hyperlipidemia, Unspecified hepatitis, Chronic Migraines, PTSD PREVIOUS FUNCTIONAL STATUS/SOCIAL/FAMILY SUPPORTS:: Manasa lives in her own home in [place]. She is independent, lives alone and has a small dog. She drives and has her own car. She describes her neighbors as a source of support. Manasa has one son who lives in [facility]. his name is Oliver. She also has two grandchildren 3 and 5 that also live in [place]. She has community supports including the community justice center [facility], [employer] and [facility]. CURRENT FUNCTIONAL STATUS:: Manasa is alert and engaged with CM during assessment. She states that she is feeling better today she is not having the nausea and is hopeful she will be able to be discharged soon. ADVANCE DIRECTIVES:: On file shyla Boyd is the agent Has patient been provided with information about the portal?: Yes Did the patient sign up for the portal?: No CODE STATUS:: Full Code INSURANCE COVERAGE / FINANCIAL ISSUES:: Medicare and Medicaid CURRENT HOME/COMMUNITY SERVICES/EQUIPMENT:: None PRIMARY CARE PHYSICIAN:: Diane Hutchison POTENTIAL DISCHARGE NEEDS:: Follow up with primary care scheduled prior to discharge. PATIENT/FAMILY EDUCATION NEEDS:: Discharge education, limitations and follow up plan of care ANTICIPATED BARRIERS TO DISCHARGE:: None TRANSPORTATION:: Friend Cesia will transport her home when she is medically ready. PLAN:: Manasa remains in the ICU as a medical surgical overflow. She will be discharged home when medically ready per provider. CM to continue to provide support discharge planning.
[2018-12-06] MEDS: Sucralfate 1 GM TAB PO ×3 (08:38→22:14)
[2018-12-06] MEDS: Polyethylene Glycol 3350 17 GM PACKET PO (08:39)
[2018-12-06] MEDS: POTASSIUM CHLORIDE 20 MEQ/100 ML BAG 50 MEQ IVPB ×2 (08:39→11:38)
[2018-12-06] MEDS: Normal Saline 1,000 ML 100 ML IV (09:26)
[2018-12-06 11:20] LABS: TSH (W/Ref FT4) 0.97 uIU/mL (0.36-3.74)
--- NOTE | 2018-12-06 12:12 | W.UROLOGYCON ---
Date of service: 12/06/18 Time of Service: 12:12 Assessment and Plan Assessment and plan (1) Hydronephrosis: Status: Acute Assessment and plan: In reviewing the patient's previous CT scan, the renal pelvis did appear prominent. The degree of dilation seen during this most recent CT scan seems larger. If there was a kidney stone present, I would expect to be able to see that on the CT scan. I am not overly familiar with the surgical approach for a robotic laparoscopic paraesophageal hernia repair, but my initial literature search does not show a large association with retroperitoneal injury. It may simply be that the patient has a chronic ureteropelvic junction obstruction that appears more dilated. Since she is not having signs or symptoms of pyelonephritis and since she is not having any flank pain, I do not see a reason for an urgent stent placement. Instead, we would recommend a nuclear renogram with Lasix washout. This type of study will tell us if the kidney is simply dilated or if there is a physiologic obstruction. It will also tell us the function provided by the dilated kidney. The patient tells me she is feeling better and is asking if she might be able to go home today. I would have no objection to her obtaining the nuclear renogram as an outpatient along with an appointment to see me (preferably on the same day as her nuclear renogram). Qualifiers: Hydronephrosis type: unspecified Qualified Code(s): N13.30 - Unspecified hydronephrosis History of Present Illness History of Present Illness Chief Complaint: left hydronephrosis Narrative: This is a 63-year-old woman who has a history of a para esophageal hernia. She underwent a robotic laparoscopic paraesophageal hernia repair on 06/16/2018. She developed nausea and dry heaves for 3 or 4 days prior to this admission. She presented to the emergency room and was found to be dehydrated. She was admitted for hydration. She was evaluated with a CT of the abdomen and pelvis. Left hydronephrosis was identified. I have been asked to see her for this issue. She is not having any flank pain. She has no dysuria or gross hematuria. Her urine was described as being cloudy in appearance, but her urinalysis appeared normal. Her baseline serum creatinine is around 0.8 ng/dL. On admission, her creatinine was increased to 1.27. After hydrating her overnight, the serum creatinine is down to is 1.02 ng/dL. She has no known history of kidney stones or urologic surgery. Review of Systems Review of Systems Narrative: No fevers or chills No vision change No diabetes or thyroid No shortness of breath, cough or hemoptysis No chest pain or palpitations No hx hepatitis No seizures, strokes or peripheral neuropathy Hx chronic anemia No gout or arthralgia PFSH Medical History (Updated 12/07/18 @ 12:55 by Carla Mcdaniel MD) Anemia Anxiety Benign tumor of pituitary gland Chronic vomiting Depression GERD (gastroesophageal reflux disease) Grief reaction Hiatal hernia (Chronic) History of hepatitis History of HPV infection History of Lyme disease Hyperlipidemia Joint pain Low back pain Neck pain PTSD (post-traumatic stress disorder) Shortness of breath Surgical History EGD - MAC (01/13/17) Social History Smoking/Tobacco Use Status: Former Tobacco Use Alcohol Intake: current Alcohol Intake frequency: holidays/special occasions only Alcohol type: beer Drug use: Never Substance use type: does not use Do you feel safe at home: Yes Do you feel safe in your relationship?: Yes Exam Narrative Exam Narrative: She looks comfortable. Her vital signs are documented elsewhere She has no CVA tenderness and no flank mass. She is awake and alert. I reviewed her CT scans on the PACS system. She had a CT of the chest and abdomen in May of this year that I can use for comparison. The renal pelvis was slightly dilated on her CT in May, but the degree of dilation has increased on this admissions films. I do not see any evidence of ureteral stone or extrinsic mass at the renal hilum. Results Last Vital Signs Temp 36.9 C 12/06/18 11:45 Pulse 83 12/06/18 11:45 Resp 20 12/06/18 11:45 BP 142/96 H 12/06/18 11:45 Pulse Ox 96 12/06/18 11:45 Labs Result diagrams: 12/07/18 06:15 12/07/18 06:15 Labs: Laboratory Results - last 24 hr 12/05/18 12/05/18 12/05/18 21:35 21:35 21:35 WBC 16.63 H RBC 4.74 Hgb 14.8 Hct 43.1 MCV 90.9 MCH 31.2 MCHC 34.3 RDW 13.0 Plt Count 348 MPV 9.2 Immature Gran % 0.4 Neutrophils % 83.9 Lymphocytes % 9.0 Monocytes % 6.1 Eosinophils % 0.4 Basophils % 0.2 Absolute Neutrophils 13.95 H Absolute Lymphocytes 1.50 Absolute Monocytes 1.01 H Absolute Eosinophils 0.07 Absolute Basophils 0.03 Sodium 136 Potassium 3.7 Chloride 98 Carbon Dioxide 26.4 Anion Gap 11.6 H BUN 15 Creatinine 1.27 H Estimated GFR/1.73 m2 42.23 Glucose 154 H Calcium 9.8 Magnesium Total Bilirubin 0.7 AST 17 ALT 22 Alkaline Phosphatase 145 H Troponin I < 0.05 Total Protein 8.6 H Albumin 4.4 Lipase 78 TSH Urine Color Urine Clarity Urine pH Ur Specific [place] Urine Protein Urine Ketones Urine Blood Urine Nitrite Urine Bilirubin Urine Urobilinogen Ur Leukocyte Esterase Urine Glucose 12/05/18 12/06/18 12/06/18 23:13 06:05 06:05 WBC RBC Hgb Hct MCV MCH MCHC RDW Plt Count MPV Immature Gran % Neutrophils % Lymphocytes % Monocytes % Eosinophils % Basophils % Absolute Neutrophils Absolute Lymphocytes Absolute Monocytes Absolute Eosinophils Absolute Basophils Sodium 142 Potassium 3.4 L Chloride 107 Carbon Dioxide 25.6 Anion Gap 9.4 BUN 11 Creatinine 1.06 H Estimated GFR/1.73 m2 52.03 Glucose 103 H D Calcium 8.7 Magnesium 2.0 Total Bilirubin 0.5 AST 10 L ALT 15 Alkaline Phosphatase 108 Troponin I Total Protein 6.7 Albumin 3.4 Lipase TSH 0.97 Urine Color Yellow Urine Clarity Sl cloudy Urine pH 7.0 Ur Specific [place] 1.010 Urine Protein Negative Urine Ketones Negative Urine Blood Negative Urine Nitrite Negative Urine Bilirubin Negative Urine Urobilinogen 0.2 Ur Leukocyte Esterase Negative Urine Glucose Negative 12/06/18 06:05 WBC 10.09 D RBC 4.06 Hgb 12.5 D Hct 37.9 MCV 93.3 MCH 30.8 MCHC 33.0 RDW 13.0 Plt Count 293 MPV 9.9 Immature Gran % 0.3 Neutrophils % 61.3 Lymphocytes % 28.1 Monocytes % 8.6 Eosinophils % 1.3 Basophils % 0.4 Absolute Neutrophils 6.19 Absolute Lymphocytes 2.84 Absolute Monocytes 0.87 H Absolute Eosinophils 0.13 Absolute Basophils 0.04 Sodium Potassium Chloride Carbon Dioxide Anion Gap BUN Creatinine Estimated GFR/1.73 m2 Glucose Calcium Magnesium Total Bilirubin AST ALT Alkaline Phosphatase Troponin I Total Protein Albumin Lipase TSH Urine Color Urine Clarity Urine pH Ur Specific [place] Urine Protein Urine Ketones Urine Blood Urine Nitrite Urine Bilirubin Urine Urobilinogen Ur Leukocyte Esterase Urine Glucose
[2018-12-06] MEDS: Docusate Sodium 100 MG CAP PO ×2 (16:01→21:11)
[2018-12-06] MEDS: Senna TAB 1 TAB PO ×2 (16:01→21:11)
--- NOTE | 2018-12-06 16:05 | CHAPLAIN ---
Manasa was in bed when I visited. She talked about the symptoms led her to come into the ER. She has a good friend who also lives in [place], but Manasa's family in is [place]. She is headed there in a couple of weeks for a grandchild's jainism. Manasa was raised [employer]ahaoism, and has attended the [facility] in [facility], but said she is interested in attending mass again. Fr. Purcell visited her and let her know about mass times. Manasa was very pleasant and easily engaged in a conversation. She said she may go home tomorrow.
[2018-12-06] MEDS: Acetaminophen 325 MG TAB PO (16:23)
[2018-12-07] VITALS (9 sets, daily range): BP systolic 136–167; BP diastolic 65–102; PULSE 72–91; RESP 18; TEMP 36.3–36.6; O2SAT 94–97
[2018-12-07] MEDS: Heparin 5,000 UNITS/ML VIAL 5000 UNITS SC ×2 (00:02→09:05)
[2018-12-07 06:54] LABS: Abs Immature Grans 0.01 k/cumm (0.0-0.09); Absolute Basophil Count 0.06 k/cumm (0.0-0.2); Absolute Eosinophil Count 0.22 k/cumm (0.0-0.7); Absolute Lymphocyte Count 2.39 k/cumm (1.2-3.4); Absolute Monocyte Count 0.61 k/cumm (0.11-0.7); Absolute Neutrophil Count 4.31 k/cumm (1.2-6.7); Basophils % 0.8; Eosinophils % 2.9; HCT 36.5 % (36.0-46.0); HGB 11.9 g/dL (12.0-15.5); Immature Grans % 0.1; Lymphocytes % 31.4; Mean Corp. HGB Concentration 32.6 g/dL (32.0-36.0); Mean Corpuscular Hemoglobin 30.7 pg (27.0-33.0); Mean Corpuscular Volume 94.1 fL (80-95); Mean Platelet Volume 9.2 fL (8.0-11.0); Neutrophils % 56.8; Platelet Count 266 x1000/uL (130-400); RBC 3.88 m/cumm (4.00-5.20)
[2018-12-07 07:10] LABS: Anion Gap 7.3 mmol/L (3-11); BUN 11 mg/dL (7-18); CO2 26.7 mmol/L (21.0-32.0); Calcium 8.7 mg/dL (8.5-10.1); Chloride 109 mmol/L (98-107); Estimated GFR 55.64 (mL/min/1.73m2); Glucose 93 mg/dL (70-100); Magnesium 1.8 mg/dL (1.8-2.4); Potassium 3.7 mmol/L (3.5-5.1); Sodium 143 mmol/L (136-145)
--- NOTE | 2018-12-07 08:16 | W.PM.PROGNOT ---
Date of Service Date of service: 12/07/18 Time of Service: 08:16 Subjective Subjective Interval history since last seen: Tolerated regular consistency diet. Still no BM. No pain. Objective Objective Clinical Data: Abnormal lab results 12/07/18 12/07/18 Range/Units 06:15 06:15 RBC 3.88 L (4.00-5.20) m/cumm Hgb 11.9 L (12.0-15.5) g/dL Chloride 109 H (98-107) mmol/L Vital Signs Temperature 36.3 C L 12/07/18 06:08 Temperature Source Temporal Artery Scan 12/07/18 06:08 Pulse 78 12/07/18 06:08 Pulse Rhythm Regular 12/06/18 20:00 Respiratory Rate 18 12/07/18 06:08 Respiratory Effort Non-Labored 12/06/18 20:00 Respiratory Depth Normal 12/06/18 20:00 Respiratory Pattern Normal 12/06/18 20:00 Blood Pressure 158/65 H 12/07/18 06:08 Blood Pressure Mean 109 12/06/18 16:05 Blood Pressure Position Sitting 12/05/18 21:17 Pulse Oximetry 94 L 12/07/18 06:08 Oxygen Delivery Method Room Air 12/07/18 06:08 Oxygen Flow Rate 0 12/07/18 06:08 Pain Level 0 12/07/18 06:08 Comment 12/06/18 16:05 Intake & Output 12/06/18 12/06/18 12/07/18 11:59 23:59 11:59 Intake Total 3016.667 / 5820.000 2803.333 / 5820.000 Output Total 999 1450 / 1450 Balance 2016.667 / 3820.000 1803.333 / 3820.000 -1450 / -1450 Weight 74.4 kg 75 kg Intake: IV 2216.667 / 3260.000 1043.333 / 3260.000 Oral 800 / 2560 1760 / 2560 Output: Urine 999 1450 / 1450 Other: Urine Color Yellow Yellow Yellow Urine Appearance Clear Clear Clear Urine Odor None None None Voiding Methods Bedside Commode Bedside Commode Bedside Commode Laboratory Results WBC 7.60 k/cumm (4.4-10.8) 12/07/18 06:15 RBC 3.88 m/cumm (4.00-5.20) L 12/07/18 06:15 Hgb 11.9 g/dL (12.0-15.5) L 12/07/18 06:15 Hct 36.5 % (36.0-46.0) 12/07/18 06:15 MCV 94.1 fL (80-95) 12/07/18 06:15 MCH 30.7 pg (27.0-33.0) 12/07/18 06:15 MCHC 32.6 g/dL (32.0-36.0) 12/07/18 06:15 RDW 13.0 % (11.7-14.6) 12/07/18 06:15 Plt Count 266 x1000/uL (130-400) 12/07/18 06:15 MPV 9.2 fL (8.0-11.0) 12/07/18 06:15 Immature Gran % 0.1 12/07/18 06:15 Neutrophils % 56.8 12/07/18 06:15 Lymphocytes % 31.4 12/07/18 06:15 Monocytes % 8.0 12/07/18 06:15 Eosinophils % 2.9 12/07/18 06:15 Basophils % 0.8 12/07/18 06:15 Absolute Neutrophils 4.31 k/cumm (1.2-6.7) 12/07/18 06:15 Absolute Lymphocytes 2.39 k/cumm (1.2-3.4) 12/07/18 06:15 Absolute Monocytes 0.61 k/cumm (0.11-0.7) 12/07/18 06:15 Absolute Eosinophils 0.22 k/cumm (0.0-0.7) 12/07/18 06:15 Absolute Basophils 0.06 k/cumm (0.0-0.2) 12/07/18 06:15 Sodium 143 mmol/L (136-145) 12/07/18 06:15 Potassium 3.7 mmol/L (3.5-5.1) 12/07/18 06:15 Chloride 109 mmol/L (98-107) H 12/07/18 06:15 Carbon Dioxide 26.7 mmol/L (21.0-32.0) 12/07/18 06:15 Anion Gap 7.3 mmol/L (3-11) 12/07/18 06:15 BUN 11 mg/dL (7-18) 12/07/18 06:15 Creatinine 1.00 mg/dL (0.55-1.02) 12/07/18 06:15 Estimated GFR/1.73 m2 55.64 (mL/min/1.73m2) 12/07/18 06:15 Glucose 93 mg/dL (70-100) 12/07/18 06:15 Calcium 8.7 mg/dL (8.5-10.1) 12/07/18 06:15 Magnesium 1.8 mg/dL (1.8-2.4) 12/07/18 06:15 Total Bilirubin 0.5 mg/dL (0.2-1.0) 12/06/18 06:05 AST 10 U/L (15-37) L 12/06/18 06:05 ALT 15 U/L (14-59) 12/06/18 06:05 Alkaline Phosphatase 108 U/L (46-116) 12/06/18 06:05 Troponin I < 0.05 ng/mL (0.00-0.06) 12/05/18 21:35 Total Protein 6.7 g/dL (6.4-8.2) 12/06/18 06:05 Albumin 3.4 g/dL (3.4-5.0) 12/06/18 06:05 Lipase 78 U/L (73-393) 12/05/18 21:35 TSH 0.97 uIU/mL (0.36-3.74) 12/06/18 06:05 Urine Color Yellow (Yellow) 12/05/18 23:13 Urine Clarity Sl cloudy (Clear) 12/05/18 23:13 Urine pH 7.0 (5-8) 12/05/18 23:13 Ur Specific [place] 1.010 (1.005-1.025) 12/05/18 23:13 Urine Protein Negative mg/dL (Negative) 12/05/18 23:13 Urine Ketones Negative mg/dL (Negative) 12/05/18 23:13 Urine Blood Negative (Negative) 12/05/18 23:13 Urine Nitrite Negative (Negative) 12/05/18 23:13 Urine Bilirubin Negative (Negative) 12/05/18 23:13 Urine Urobilinogen 0.2 EU/dL (Up TO 0.2) 12/05/18 23:13 Ur Leukocyte Esterase Negative (Negative) 12/05/18 23:13 Urine Glucose Negative mg/dL (Negative) 12/05/18 23:13
--- NOTE | 2018-12-07 08:55 | PDOC.CMDIS ---
- If Service Date Differs Date of service: 12/07/18 Time of Service: 08:55 LACE Index Scoring Tool - Questions: Length of Stay (in days): 3 Acuity (Admit via E.D.?): Yes Comorbidities: Mild Liver/Renal Disease E.D. Visits: 1 - Answers: Total Score: 9 Risk of Readmission: Low Risk Care Management Discharge Reason for Hospitalization: CHRISTIANO, Hydronephrosis, intractible emesis Discharge Plan: Manasa is being discharged home she will follow up with PCP as directed. Urology will contact her directly to schedule the renal angiogram and appointment with . Manasa will transport home with her friend Helen at time of discharge. Patient/Family Education Needs: discharge education, limitations and follow up plan of care.
[2018-12-07] MEDS: Polyethylene Glycol 3350 17 GM PACKET PO (09:01)
[2018-12-07] MEDS: clonazePAM 1 MG TAB PO (09:02)
[2018-12-07] MEDS: Sucralfate 1 GM TAB PO (09:02)
[2018-12-07] MEDS: Senna TAB 1 TAB PO (09:02)
[2018-12-07] MEDS: Docusate Sodium 100 MG CAP PO (09:03)
[2018-12-07] MEDS: Pantoprazole 40 MG VIAL IVP (09:04)
[2018-12-07] MEDS: Normal Saline Flush 10 ML SYR IVP (09:10)
[2018-12-07] MEDS: Bisacodyl 5 MG TABEC 10 MG PO (10:46)
[2018-12-07] MEDS: Bisacodyl 10 MG SUPP PR ×2 (11:33)
--- NOTE | 2018-12-07 12:36 | W.PM.DS.N ---
Date of service: 12/07/18 Time of Service: 12:36 DS: Diagnosis Discharge Diagnosis (1) Hydronephrosis: Status: Acute (2) Constipation: Status: Acute (3) CHRISTIANO (acute kidney injury): Status: Acute (4) Iron deficiency anemia, unspecified: Status: Acute (5) Emesis, persistent: Status: Resolved (6) Dehydration: Status: Acute (7) Hiatal hernia: Status: Chronic Discharge Plan Disposition Patient Disposition: HOME Condition: Improving Discharge Details Chief Complaint: Abd Prob Clinical Impression: Acute vomiting, Dehydration, Acute kidney injury Reason For Visit: CHRISTIANO WITH HYDRONEPHROSIS, INTRACTIBLE EMESIS Admit Date/Time: 12/06/18 00:38 Admit Provider: Papito Sandoval Attending Provider: Papito Sandoval Primary Care Provider: Diane Mendez ED Provider: Jessica Delgado Hospital Course Hospital Course: Ms Ortiz is a 63 year old female with PMHx of chronic left hydronephrosis, chronic vomiting, per chart review, chronic constipation not on a bowel regimen at home, anxiety, observed on [facility] hospitalist service on 12/06/18-12/07/18 for nausea/vomiting in setting of worsening L-sided hydronephrosis. 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 There was no urgent indication for stent placement. Additionally, her kidney function improved with IV hydration, the patient's nausea/vomiting had resolved, she was able to tolerate PO and had a bowel movement. She will require a nuclear renogram with lasix washout as outpatient with follow up with Dr Mulligan for further management of her hydronephrosis. She is medically stable for discharge home today. Home Meds and New Rx's Prescriptions: New docusate sodium [Colace] 100 mg Capsule 100 mg PO BID Qty: 60 RF: 0 bisacodyl 5 mg Tablet,Delayed Release (Dr/Ec) 10 mg PO PRN PRN (Reason: constipation) Qty: 10 RF: 0 sennosides [Senokot] 8.6 mg Tablet 1 tab PO BID Qty: 60 RF: 0 polyethylene glycol 3350 17 gram Powder In Packet 17 g PO DAILY Qty: 30 RF: 0 magnesium hydroxide [Milk of Magnesia] 400 mg/5 mL Suspension 30 ml PO DIRECTED PRN (Reason: constipation) Qty: 355 RF: 0 Continued Atorvastatin Calcium 20 MG tablet 20 mg PO HS RF: 0 olanzapine 10 MG tablet 10 mg PO HS RF: 0 buspirone 10 MG tablet 20 mg PO HS RF: 0 clonazepam 0.5 MG tablet,disintegrating 1 mg PO BID RF: 0 omega-3 fatty acids-fish oil 1 EACH capsule 1 ea PO DAILY RF: 0 calcium carbonate-vitamin D3 [Calcium 500 + D] 1 EACH tablet 1 ea PO DAILY RF: 0 venlafaxine 225 MG tablet extended release 24hr 225 mg PO HS RF: 0 glucosam-chond qo-xwdnha-do ac 1 EACH capsule 1 ea PO DAILY RF: 0 Multi-Day Plus Minerals 1 EACH tablet 1 ea PO DAILY RF: 0 ondansetron 4 mg Tablet,Disintegrating 4 mg PO Q8H PRNRF: 0 amitriptyline 10 MG tablet 20 mg PO HS RF: 0 cyclobenzaprine 10 MG tablet 10 mg PO TID PRN (Reason: Muscle Spasm) Qty: 8 RF: 0 Discharge Instructions Instructions: Constipation (DC), Dehydration (DC), Hydronephrosis (DC) Additional Instructions: Return to the hospital with any fever, bleeding, chest pain, shortness of breath. Follow up for nuclear renogram and with Dr Mulligan of urology. Referrals: Dickson Mulligan MD [ [facility] STAFF PHYSICIAN] - Diane Mendez [Primary Care Provider] - Activity:: Activity as Tolerated Equipment/Supplies:: No Equipment Needed Diet:: As Tolerated Discharge Orders Discharge Orders: Discharge Order (Routine); Ordered 12/07/18 Ordered By: Carla Mcdaniel Other Ambulatory Orders: NM DTPA renogram w lasix (Routine) Timeframe: 1 Week Facility: [facility] - Location: Nuclear Medicine Department Ordered By: Carla Mcdaniel DS: Summary Status at Discharge Functional status at discharge: independent ambulation Overall status at discharge: patient is back to baseline Mental Status: mental status grossly normal Speech and Movement: speech and movement normal Mood: congruent mood Affect: normal affect Exam Narrative Exam Narrative: General: very pleasant middle-aged female, A&Ox3, NAD HEENT: EOMI, MMM Heart: RRR, no m/r/g Lungs: CTAB GI: abdomen is soft, nontender, nondistended Extremities: no e/c/c BLE's Psych Mental Status: mental status grossly normal Speech and Movement: speech and movement normal Mood: congruent mood Affect: normal affect DS: Data Vitals/I&O Vitals and I&O: Vital Signs Temperature 36.5 C 12/07/18 08:40 Temperature Source Temporal Artery Scan 12/07/18 08:40 Pulse 78 12/07/18 08:43 Pulse Rhythm Regular 12/07/18 08:40 Respiratory Rate 18 12/07/18 08:40 Respiratory Effort 12/07/18 08:45 Respiratory Depth Normal 12/07/18 08:45 Respiratory Pattern Normal 12/07/18 08:45 Blood Pressure 136/94 H 12/07/18 08:43 Blood Pressure Mean 104 12/07/18 08:43 Blood Pressure Position Sitting 12/05/18 21:17 Pulse Oximetry 96 12/07/18 08:47 Oxygen Delivery Method Room Air 12/07/18 08:47 Oxygen Flow Rate 0 12/07/18 08:47 Pain Level 0 12/07/18 08:40 Comment 12/07/18 08:40 Intake & Output 12/06/18 12/07/18 12/07/18 23:59 11:59 23:59 Intake Total 2803.333 / 5820.000 620 / 620 Output Total 999 3075 / 3325 250 / 3325 Balance 1803.333 / 3820.000 -2455 / -2705 -250 / -2705 Weight 75 kg Intake: IV 1043.333 / 3260.000 Oral 1760 / 2560 600 / 600 Output: Urine 999 3075 / 3325 250 / 3325 Other: Urine Color Yellow Yellow Urine Appearance Clear Clear Urine Odor None None Comment mixed with stool Stool Occult Blood Negative Stool Size Large Stool Characteristics Formed Hard Voiding Methods Bedside Commode Bedside Commode Data Completed and Pending Completed studies during hospitalization [Text1]: CT abdomen/pelvis 12/06/18: Moderate to severe left hydronephrosis possibly due to a crossing compressing vessel. Hiatus hernia identified. Radiopacities in the distal esophagus could represent surgical material. Multiple small-bowel loops containing low-density fluid with a few loops demonstrating questionable wall thickening is identified. There may also be small regions of wall thickening at several regions in the colon, these findings likely related to nondistention. The possibility of enterocolitis could not be entirely excluded. Note is also made of an enlarged spleen. Labs on day of discharge: Labs from last 24 hours 12/07/18 12/07/18 06:15 06:15 WBC 7.60 RBC 3.88 L Hgb 11.9 L Hct 36.5 MCV 94.1 MCH 30.7 MCHC 32.6 RDW 13.0 Plt Count 266 MPV 9.2 Immature Gran % 0.1 Neutrophils % 56.8 Lymphocytes % 31.4 Monocytes % 8.0 Eosinophils % 2.9 Basophils % 0.8 Absolute Neutrophils 4.31 Absolute Lymphocytes 2.39 Absolute Monocytes 0.61 Absolute Eosinophils 0.22 Absolute Basophils 0.06 Sodium 143 Potassium 3.7 Chloride 109 H Carbon Dioxide 26.7 Anion Gap 7.3 BUN 11 Creatinine 1.00 Estimated GFR/1.73 m2 55.64 Glucose 93 Calcium 8.7 Magnesium 1.8 PFSH Medical History Anemia Anxiety Benign tumor of pituitary gland Chronic vomiting Depression GERD (gastroesophageal reflux disease) Grief reaction History of hepatitis History of HPV infection History of Lyme disease Hyperlipidemia Joint pain Low back pain Neck pain PTSD (post-traumatic stress disorder) Shortness of breath Surgical History EGD - MAC (01/13/17) Social History Smoking/Tobacco Use Status: Former Tobacco Use Alcohol Intake: current Alcohol Intake frequency: holidays/special occasions only Alcohol type: beer Drug use: Never Substance use type: does not use Do you feel safe at home: Yes Do you feel safe in your relationship?: Yes
== END 2018-12-07 14:05 | disposition home or self-care (01) ==
LOC: ER 12-06 00:41 → ICU 12-06 01:25
PROVIDERS: Internal Medicine; Admitting Provider Family Medicine; Emergency Provider Physician Assistant; PCP Nurse Practitioner Family; Visit Provider Internal Medicine
DX: N17.9 Acute kidney failure, unspecified (principal); N13.1 Hydronephrosis with ureteral stricture, not elsewhere classified; K59.00 Constipation, unspecified; D50.9 Iron deficiency anemia, unspecified; E86.0 Dehydration; K44.9 Diaphragmatic hernia without obstruction or gangrene; R11.2 Nausea with vomiting, unspecified; F41.8 Other specified anxiety disorders; K21.9 Gastro-esophageal reflux disease without esophagitis; E78.5 Hyperlipidemia, unspecified; R11.15 Cyclical vomiting syndrome unrelated to migraine
CPT/HCPCS: 36415; 80048; 80053; 83690; 85027; 93005; 96361; 96374; 99217; 99220; 99221; 99253; 99285; NC; 74177; 81003; 83735; 84443; 84484; 85025; 87086; 93010; G0378; J0696; J1644; J2765; J3480; J3490

== ENCOUNTER 2018-12-14 01:49 | Outpatient (CLI) | payer MEDICARE, MEDICAID, SELFPAY ==
--- NOTE | 2018-12-14 08:21 | DI.NM_ITS ---
CLINICAL HISTORY: Hydronephrosis, N13.30, ? obstruction. COMPARISON: GASTRIC EMPTYING from 02/05/2017 EXAMINATION: Dose: 11.5 mCi of technetium 99 M DTPA Images: Immediately for 1 minute followed by dynamic for 45 minutes. 22mg Lasix was administered afte r peak uptake in the renal cortex at approximately 12 min. FINDINGS: The right kidney provides 71 percent of the renal function. There is no evidence of obstruction of t he right kidney. The left kidney provides 29 percent of the renal function. Following Lasix administration, there is no decrease in the excretion from the left kidney. The findings are suspicious for obstruction. IMPRESSION: Findings suspicious for obstruction of the left kidney.
[2018-12-14] MEDS: Furosemide 40 MG/4 ML VIAL 22 MG IVP (10:22)
[2018-12-14] MEDS: Normal Saline Flush 10 ML SYR IVP (10:23)
== END 2018-12-14 02:09 ==
PROVIDERS: PCP Nurse Practitioner Family; Visit Provider Urology
DX: N13.30 Unspecified hydronephrosis (principal); N28.89 Other specified disorders of kidney and ureter
CPT/HCPCS: 78708; J1940

== ENCOUNTER → 2019-01-04 13:48 | Outpatient (BNVA) | payer MEDICARE, MEDICAID, SELFPAY | PROVIDERS: PCP Nurse Practitioner Family; Referring Provider Nurse Practitioner Family; Visit Provider Urology | DX: N13.30 Unspecified hydronephrosis (principal) | CPT/HCPCS: 81003; 99213 ==

== ENCOUNTER 2019-02-15 11:45 | Outpatient (REF) | payer MEDICARE, MEDICAID, SELFPAY ==
[2019-02-15 19:00] LABS: HCT 46.5 % (36.0-46.0); HGB 15.5 g/dL (12.0-15.5); Mean Corp. HGB Concentration 33.3 g/dL (32.0-36.0); Mean Corpuscular Hemoglobin 30.6 pg (27.0-33.0); Mean Corpuscular Volume 91.7 fL (80-95); Mean Platelet Volume 10.1 fL (8.0-11.0); Platelet Count 300 x1000/uL (130-400); RBC 5.07 m/cumm (4.00-5.20); RBC Distribution Width 13.3 % (11.7-14.6); White Blood Cell Count 8.95 k/cumm (4.4-10.8)
[2019-02-15 19:16] LABS: Anion Gap 11.8 mmol/L (3-11); BUN 18 mg/dL (7-18); CO2 25.2 mmol/L (21.0-32.0); CREATININE 1.27 mg/dL (0.55-1.02); Calcium 9.8 mg/dL (8.5-10.1); Calculated LDL 131 mg/dL; Chloride 100 mmol/L (98-107); Cholesterol 229 mg/dL (<200); Estimated GFR 42.23 (mL/min/1.73m2); Glucose 140 mg/dL (74-106); HDL Cholesterol 41 mg/dL (40-60); Iron 96 ug/dL (50-170); Potassium 4.7 mmol/L (3.5-5.1); Sodium 137 mmol/L (136-145); Total Iron Binding Capacity 403 ug/dL (250-450); Transferrin Sat 24 % (15-50); Triglyceride 285 mg/dL (<150)
== END 2019-02-15 12:05 ==
LOC: NCHCN 11:45
PROVIDERS: PCP Nurse Practitioner Family; Visit Provider Nurse Practitioner Family
DX: E78.5 Hyperlipidemia, unspecified (principal); D64.9 Anemia, unspecified
CPT/HCPCS: 80048; 80061; 85027; 83540; 83550

== ENCOUNTER 2019-03-21 13:18 | Outpatient (CLI) | payer MEDICARE, MEDICAID, SELFPAY ==
--- NOTE | 2019-03-21 15:48 | DI.US_ITS ---
EXAM: US RENAL CLINICAL HISTORY: HYDRONEPHROSIS, LT N13.30, EVAL FOR CHANGE. TECHNIQUE: Martin scale, color and spectral Doppler were used. COMPARISON: RAD US BREAST UNILATERAL LIMITED from 01/30/2015 CT ABDOMEN PELVIS W from 12/05/2018 FINDINGS: Renal size in cm: Right: 11.8 left: 10.2 Echogenicity: Normal Hydronephrosis: Stable moderate to severe dilatation of the left renal collecting system. No right h ydronephrosis. Cyst or mass: No Nephrolithiasis: 3 mm echogenic focus in the right kidney. This may represent a nonobstructing stone . Other findings: None Bladder:Normal. Both ureteral jets were visualized. Prevoid vol:82 cc Postvoid vol:0 cc IMPRESSION: Stable moderate to severe dilatation of the left renal collecting system.
== END 2019-03-21 13:38 ==
PROVIDERS: PCP Nurse Practitioner Family; Visit Provider Surgery
DX: N13.30 Unspecified hydronephrosis (principal); N20.0 Calculus of kidney; N28.89 Other specified disorders of kidney and ureter
CPT/HCPCS: 76770

== ENCOUNTER 2019-04-02 11:54 | Emergency (ER) | payer MEDICARE, MEDICAID, SELFPAY ==
[2019-04-02 11:56] VITALS: BP 164/114; PULSE 97; TEMP 36.6; O2SAT 98
--- NOTE | 2019-04-02 12:01 | W.ED.GENAD ---
Discharge Plan Disposition Patient Disposition: HOME Condition: Improving Discharge Details Chief Complaint: Nausea/Vomit/Diar Clinical Impression: CHRISTIANO (acute kidney injury), Hydronephrosis, Constipation, Nausea & vomiting Primary Care Provider: Diane Mendez ED Provider: Alicia Weston Home Meds and New Rx's Prescriptions: Continued sucralfate [Carafate] 1 gram tablet 1 gm PO .COMPLEX RF: 0 Benefiber Healthy Shape 5 gram/7.4 gram powder 5 gm PO RF: 0 Atorvastatin Calcium 20 MG tablet 20 mg PO HS RF: 0 olanzapine 10 MG tablet 10 mg PO HS RF: 0 buspirone 10 MG tablet 20 mg PO HS RF: 0 clonazepam 0.5 MG tablet,disintegrating 1 mg PO BID RF: 0 omega-3 fatty acids-fish oil 1 EACH capsule 1 ea PO DAILY RF: 0 calcium carbonate-vitamin D3 [Calcium 500 + D] 1 EACH tablet 1 ea PO DAILY RF: 0 venlafaxine 225 MG tablet extended release 24hr 225 mg PO HS RF: 0 glucosam-chond xc-jqelex-rt ac 1 EACH capsule 1 ea PO DAILY RF: 0 Multi-Day Plus Minerals 1 EACH tablet 1 ea PO DAILY RF: 0 amitriptyline 10 MG tablet 20 mg PO HS RF: 0 cyclobenzaprine 10 MG tablet 10 mg PO TID PRN (Reason: Muscle Spasm) Qty: 8 RF: 0 melatonin 5 mg Tablet 5 mg PO HS PRNRF: 0 lisinopril 20 mg Tablet 20 mg PO DAILY RF: 0 No Action promethazine 25 mg tablet 25 mg PO Q6H PRN (Reason: nausea and vomiting) Qty: 20 RF: 0 Discharge Instructions Instructions: Constipation (ED), Acute Nausea and Vomiting (ED) Additional Instructions: Encourage water intake. You may advance diet as tolerated but please start with bland diet such as bananas, rice, applesauce, toast. Please follow-up with primary care on Thursday and have your kidney function rechecked. You may use the Zofran as prescribed if you have any recurrence of your nausea or vomiting. If you develop fever/chills, abdominal pain, inability stay hydrated or other new/worsening symptom please seek care urgently once again. Referrals: Diane Mendez [Primary Care Provider] - Discharge Data Discharge Date/Time-TO BE ENTERED AT DEPARTURE: 04/02/19 16:35 Medical Decision Making Patient is a 63-year-old female presenting today for 5 days of nausea and vomiting. She reports that this feels similar when she has presented with nausea and vomiting last year. At that time, the patient was admitted for acute vomiting, dehydration, acute kidney injury. Patient does have a history of chronic vomiting, chronic constipation, anxiety. with the spine she reports this episode is been going on for the past 5 days. States that initially she was febrile with a T-max of 101 ?F. However, has not had fever in the last few days. She denies any abdominal pain. States that she is vomited 4-5 times today. She did take oral Zofran with no improvement of her system. However, she does believe she may have brought the Zofran up with episode of emesis. She denies any hematemesis. States she had her last bowel movement on Thursday. She does chronically have constipation. she denies any recent travel. She denies any back pain. No dysuria. Denies any melena hematochezia. Denies any chest pain or shortness of breath. Denies any cough. Has had minimal oral intake. On exam, appears pale and is holding emesis bag. Lungs are clear, normal cardiac exam. She has tenderness in the left lower quadrant. She does not have peritoneal findings. Patient does appear dehydrated. She tachycardic at 97 but is maintaining blood pressure. Plan to hydrate the patient, obtain labs and CT she is having tenderness to left lower quadrant. Labs reviewed. Patient has leukocytosis with a white count of 13.6 and absolute neutrophil count of 11.9. Her creatinine is elevated 1.4 with a GFR 37 indicating acute kidney injury likely secondary to dehydration in the setting. Patient's alk phos is elevated 147 the patient has been elevated like this historically. Lipase is within normal limits. We will continue to hydrate the patient. She denied to discuss plus minus CT with and without contrast. Decided on CT without contrast at this time. Her abdominal pain does seem to be improved but as this seems to be a cyclical issue for her, feel that CT Noncon will be of benefit. FINDINGS: Lungs: There are a few sub 5 mm nodules in the left lung base which are smaller/less dense than on the earlier study of June 07, 2018. Mediastinum: There is a small sliding-type hiatal hernia. Densities again noted at the distal aspect of the hiatal hernia likely representing surgical material or possibly calcifications. Liver: The liver is within normal limits for this noncontrast study. Gallbladder and bile ducts: The gallbladder is contracted. Pancreas: There is a 4 mm calcification in the uncinate process of the pancreas unchanged. Spleen: The spleen is normal. Adrenals: The adrenal glands are normal. Kidneys and ureters: There is moderate to marked left hydronephrosis which has increased slightly since December 05, 2018. No hydroureter. No renal or ureteral stone on either side. The right kidney is normal. Stomach and bowel: Unremarkable. No obstruction. No mucosal thickening. Appendix: A normal appendix is identified. Intraperitoneal space: Unremarkable. No free air. No significant fluid collection. Vasculature: Unremarkable. No abdominal aortic aneurysm. Lymph nodes: No enlarged lymph nodes. Bladder: The urinary bladder is nondistended and therefore poorly evaluated. No gross abnormality. Reproductive: There is a 9 mm superficial uterine calcification likely representing a uterine fibroid. Bones/joints: Tarlov cysts in the sacrum are noted. Spondyloarthropathy lower lumbar spine with minimal anterior spondylolisthesis of L5 on S1 unchanged. Soft tissues: Small fat containing umbilical hernia. IMPRESSION: 1. Left hydronephrosis which appears to be secondary to chronic UPJ obstruction without calcified stone slightly increased since December 05, 2018. 2. Otherwise no acute findings to account for the patient's symptoms. Multiple incidental findings noted above. Patient is aware of the hydronephrosis and has upcoming appointment with nephrology at [facility]. Patient has received IV ondansetron and Phenergan. No vomiting and she does feel improved. However, she continues to have mild amount of nausea is requesting further antiemetics. She currently receiving her second liter of fluid. Was able to have a small bowel movement. No abdominal tenderness at this time. Discussed antiemetic options with Dr. Saeed as the patient is at risk for serotonin syndrome with Reglan or Compazine. He advised trying some IV Valium. Patient is sipping on water. Patient feels improved. Feels she is ready for discharge at this time. We did discuss bowel regimen options. She is given strict return precautions. I have encouraged hydration. Advise follow-up with primary care for reevaluation in the next week. All of her questions and concerns were addressed and she is in agreement this plan. HPI General Mode of arrival: ambulatory. Date/Time Provider Initiated Documentation: 04/02/19 12:00. Limitations to Documentation: no limitations. Information obtained by: patient and RN notes reviewed. History of Present Illness 63 year old F presents to the emergency department with the chief complaint of nausea and vomiting, described as severe and similar to prior episodes, Quality is described as other (nausea), and is localized to the abdomen. Patient started experiencing this day(s) (5) and it has been constant. No relieving factors improve symptom(s), No exacerbating factors reported . Patient notes fever/chills (fevers initially, since subsided), loss of appetite and nausea/vomiting; denies chest pain, cough, rash, shortness of breath and weakness. Patient did receive the following treatments prior to arrival, other (ondansetron) Related Data Home Medications Medication Instructions Recorded Confirmed Atorvastatin Calcium 20 mg PO HS tab-cap 12/17/16 04/06/19 Multi-Day Plus Minerals 1 ea PO DAILY 12/17/16 04/06/19 buspirone 20 mg PO HS tab-cap 12/17/16 04/06/19 calcium carbonate-vitamin D3 1 ea PO DAILY 12/17/16 04/06/19 [Calcium 500 + D] clonazepam 1 mg PO BID tab-cap 12/17/16 04/06/19 glucosam-chond ce-kikaob-yi ac 1 ea PO DAILY 12/17/16 04/06/19 olanzapine 10 mg PO HS tab-cap 12/17/16 04/06/19 omega-3 fatty acids-fish oil 1 ea PO DAILY 12/17/16 04/06/19 venlafaxine 225 mg PO HS tab-cap 12/17/16 04/06/19 amitriptyline 20 mg PO HS 02/03/17 04/06/19 cyclobenzaprine 10 mg PO TID PRN #8 tab 02/19/17 04/06/19 sucralfate 1 gram tablet 1 gm PO .COMPLEX 01/04/19 04/06/19 wheat dextrin 5 gram/7.4 gram oral 5 gm PO 01/04/19 01/04/19 powder lisinopril 20 mg PO DAILY 04/02/19 04/06/19 melatonin 5 mg PO HS PRN 04/02/19 04/06/19 promethazine 25 mg PO Q6H PRN #20 tab 04/06/19 Previous Rx's Medication Instructions Recorded cyclobenzaprine 10 mg PO TID PRN #8 tab 02/19/17 promethazine 25 mg PO Q6H PRN #20 tab 04/06/19 Allergies Allergy/AdvReac Type Severity Reaction Status Date / Time trazodone AdvReac Mild WIRED Unverified 04/06/19 17:10 General Stated Complaint: Nausea/Vomit/Diar EBONY: 3 Review of Systems Constitutional Constitutional: Reports as per HPI, Denies chills, Denies fatigue, Denies fever(s) and Denies headache(s) ENT Ears, Nose, Mouth, and Throat: Denies headache(s) Cardiovascular Cardiovascular: Reports as per HPI, Denies chest pain and Denies dyspnea Respiratory Respiratory: Reports as per HPI, Denies cough and Denies dyspnea Gastrointestinal Gastrointestinal: Reports as per HPI Musculoskeletal Musculoskeletal: Reports as per HPI and Denies back pain Integumentary/Breasts Skin/Breast: Reports as per HPI and Denies rash Neurologic Neurologic: Reports as per HPI and Denies headache(s) Endocrine Endocrine: Denies fatigue PFSH Medical History Anemia Anxiety Benign tumor of pituitary gland Chronic vomiting Depression GERD (gastroesophageal reflux disease) Grief reaction Hiatal hernia (Chronic) History of hepatitis History of HPV infection History of Lyme disease Hyperlipidemia Joint pain Low back pain Neck pain PTSD (post-traumatic stress disorder) Shortness of breath Surgical History EGD - MAC (01/13/17) Social History Smoking/Tobacco Use Status: Current every day Tobacco Type: cigarettes Alcohol Intake: current Alcohol Intake frequency: holidays/special occasions only Alcohol type: beer Drug use: Occasionally Substance use type: marijuana Do you feel safe at home: Yes Do you feel safe in your relationship?: Yes Exam Const General: cooperative, comfortable, no acute distress, well developed and ill appearing (nauseated, pale) acutely Nutritional Appearance: well nourished and overweight Orientation: alert and awake HENMT Head: normal to inspection Mouth: moist mucous membranes Resp Effort & Inspection: normal respiratory effort, able to speak in complete sentences and no respiratory distress Auscultation: clear to auscultation bilaterally, no rales, no rhonchi and no wheezes Cardio Rate: regular rate Rhythm: regular rhythm Heart Sounds: S1 normal and S2 normal GI Inspection: normal to inspection, no edema, non-distended and obesity Palpation: soft, no hepatosplenomegaly, not firm, no guarding, no masses, no pulsatile masses, not rigid and tender in the LLQ Percussion: normal to percussion Auscultation: hypoactive bowel sounds Back/Spine/Pelvis Back: no CVA tenderness Skin General skin exam: no rashes or lesions noted Trauma: no lacerations or abrasions Neuro General: alert and awake Cognition: normal cognition Speech: speech normal Gait: normal gait Psych Appearance: grossly normal and well kempt Mental Status: mental status grossly normal Speech and Movement: speech and movement normal Course Vital Signs Vital signs: Vital Signs Temperature 36.6 C 04/02/19 11:56 Pulse 97 H 04/02/19 11:56 Blood Pressure 164/114 H 04/02/19 11:56 Pulse Oximetry 98 04/02/19 11:56 Temperature 36.6 C 04/02/19 11:56 Temperature Source Temporal Artery Scan 04/02/19 11:56 Pulse 97 H 04/02/19 11:56 Respiratory Effort Non-Labored 04/02/19 11:59 Blood Pressure 164/114 H 04/02/19 11:56 Blood Pressure Position Sitting 04/02/19 11:56 Pulse Oximetry 98 04/02/19 11:56 Oxygen Delivery Method Room Air 04/02/19 11:56 Oxygen Flow Rate 0 04/02/19 11:56 Pain Level 0 04/02/19 11:56
[2019-04-02] MEDS: Normal Saline 1,000 ML 1000 ML IV ×2 (12:26→14:43)
[2019-04-02 12:28] LABS: Abs Immature Grans 0.03 k/cumm (0.0-0.09); Absolute Lymphocyte Count 1.12 k/cumm (1.2-3.4); Absolute Monocyte Count 0.55 k/cumm (0.11-0.7); Basophils % 0.1; Eosinophils % 0.1; HCT 39.4 % (36.0-46.0); HGB 13.4 g/dL (12.0-15.5); Immature Grans % 0.2 %; Lymphocytes % 8.2; Mean Corpuscular Hemoglobin 30.5 pg (27.0-33.0); Mean Corpuscular Volume 89.5 fL (80-95); Mean Platelet Volume 9.2 fL (8.0-11.0); Neutrophils % 87.4; Platelet Count 368 x1000/uL (130-400); RBC Distribution Width 12.7 % (11.7-14.6); White Blood Cell Count 13.63 k/cumm (4.4-10.8)
[2019-04-02 12:29] LABS: Absolute Basophil Count 0.01 k/cumm (0.0-0.2); Absolute Eosinophil Count 0.01 k/cumm (0.0-0.7); Absolute Neutrophil Count 11.91 k/cumm (1.2-6.7)
[2019-04-02 12:38] LABS: ALT 23 U/L (14-59); AST 14 U/L (15-37); Albumin 4.2 g/dL (3.4-5.0); Alkaline Phosphatase 147 U/L (46-116); Anion Gap 10.9 mmol/L (3-11); BUN 18 mg/dL (7-18); Bilirubin, Total 0.2 mg/dL (0.2-1.0); CO2 28.1 mmol/L (21.0-32.0); Calcium 9.4 mg/dL (8.5-10.1); Chloride 99 mmol/L (98-107); Estimated GFR 37.74 (mL/min/1.73m2); Glucose 152 mg/dL (74-106); Lipase 105 U/L (73-393); Potassium 3.5 mmol/L (3.5-5.1); Sodium 138 mmol/L (136-145); Total Protein 7.9 g/dL (6.4-8.2)
[2019-04-02 13:14] LABS: Bilirubin Negative (Negative); Blood Negative (Negative); Clarity Clear (Clear); Glucose Negative (Negative); Ketones Negative (Negative); Leukocyte Esterase Negative (Negative); Nitrite Negative (Negative); Urobilinogen 0.2 EU/dL (Up TO 0.2); pH 6.5 (5-8)
--- NOTE | 2019-04-02 13:15 | DI.CT_ITS ---
EXAM: CT ABDOMEN PELVIS WO CLINICAL HISTORY: LLQ pain. TECHNIQUE: Imaging Protocol: Axial computed tomography images with coronal and sagittal reformatted images were created and reviewed. The exam was performed without contrast. COMPARISON: CT ABDOMEN PELVIS W from 12/05/2018 FINDINGS: ABDOMEN: Lung Bases: No acute findings in the lung bases Liver: Normal density. No measurable mass. Gallbladder and biliary tract: No radiodense calculus or dilation. Pancreas: Normal density, no abnormal calcifications or inflammatory process. Stable calcification as sociated with the uncinate process. Spleen: Normal. Kidneys: Normal size, contour and axis. There has been slight increase in the dilatation of the left renal pelvis compared to the prior examination. The ureter is of normal caliber. The findings are s uspicious for UPJ obstruction without calcified stone . No masses seen. Adrenal glands: No masses seen. Lymph nodes: Within normal limits. Abdominal Aorta: Abdominal portion non-dilated. PELVIS: Bladder: Symmetric distention, no gross wall thickening. Bowel: No obstruction or bowel wall thickening. Normal appendix is visualized. Peritoneal cavity: No ascites, collection or mesenteric inflammatory response. Reproductive organs: Stable calcification associated with the uterus likely reflecting a fibroid. Bones: Mild degenerative changes. IMPRESSION: Slight increase in size of the left hydronephrosis since the prior examination from 12/05/2018. No c alcified stone is identified. DATA REPOSITORY: All CT scans at this facility are submitted to the National Radiology Data Registry (NRDR) Dose Index Registry (DIR) with the [employer] ([employer]). RADIATION OPTIMIZATION: All CT scans at this facility use at least one of these dose optimization te chniques: automated exposure control; mA and/or kV adjustment per patient size (includes targeted exa ms where dose is matched to clinical indication); or iterative reconstruction.
[2019-04-02] MEDS: Ondansetron 4 MG/2 ML VIAL IVP (13:55)
[2019-04-02] MEDS: Normal Saline Flush 10 ML SYR IVP (13:56)
--- NOTE | 2019-04-02 14:16 | DI.VRAD_ITS ---
PROCEDURE INFORMATION: Exam: CT Abdomen And Pelvis Without Contrast Exam date and time: 04/02/2019 12:59 PM Age: 63 years old Clinical indication: Abdominal tenderness TECHNIQUE: Imaging protocol: Computed tomography of the abdomen and pelvis without contrast. COMPARISON: CT ABDOMEN PELVIS W 12/05/2018 10:14 PM, CT chest and abdomen dated June 07, 2018. FINDINGS: Lungs: There are a few sub 5 mm nodules in the left lung base which are smaller/less dense than on the earlier study of June 07, 2018. Mediastinum: There is a small sliding-type hiatal hernia. Densities again noted at the distal aspect of the hiatal hernia likely representing surgical material or possibly calcifications. Liver: The liver is within normal limits for this noncontrast study. Gallbladder and bile ducts: The gallbladder is contracted. Pancreas: There is a 4 mm calcification in the uncinate process of the pancreas unchanged. Spleen: The spleen is normal. Adrenals: The adrenal glands are normal. Kidneys and ureters: There is moderate to marked left hydronephrosis which has increased slightly since December 05, 2018. No hydroureter. No renal or ureteral stone on either side. The right kidney is normal. Stomach and bowel: Unremarkable. No obstruction. No mucosal thickening. Appendix: A normal appendix is identified. Intraperitoneal space: Unremarkable. No free air. No significant fluid collection. Vasculature: Unremarkable. No abdominal aortic aneurysm. Lymph nodes: No enlarged lymph nodes. Bladder: The urinary bladder is nondistended and therefore poorly evaluated. No gross abnormality. Reproductive: There is a 9 mm superficial uterine calcification likely representing a uterine fibroid. Bones/joints: Tarlov cysts in the sacrum are noted. Spondyloarthropathy lower lumbar spine with minimal anterior spondylolisthesis of L5 on S1 unchanged. Soft tissues: Small fat containing umbilical hernia. IMPRESSION: 1. Left hydronephrosis which appears to be secondary to chronic UPJ obstruction without calcified stone slightly increased since December 05, 2018. 2. Otherwise no acute findings to account for the patient's symptoms. Multiple incidental findings noted above. Dictated and Authenticated by: Jabier Davila MD. Ordering:KAUSHAL Vargas MD
[2019-04-02] MEDS: diazePAM 10 MG/2 ML SYR 5 MG IVP (15:01)
[2019-04-02 15:02] VITALS: BP 179/97; PULSE 92; RESP 16; O2SAT 94
[2019-04-02] MEDS: Milk of Magnesia 30 ML CUP PO (15:32)
[2019-04-02 15:35] VITALS: BP 191/103; PULSE 101; RESP 16; O2SAT 97
== END 2019-04-02 16:35 | disposition home or self-care (01) ==
PROVIDERS: Emergency Provider Physician Assistant; PCP Nurse Practitioner Family
DX: N17.9 Acute kidney failure, unspecified (principal); N13.30 Unspecified hydronephrosis; K59.00 Constipation, unspecified; R11.2 Nausea with vomiting, unspecified
CPT/HCPCS: 80048; 80053; 83690; 96361; 96365; 96375; 99285; 74176; 81003; 85025; 99284; J2405; J3360

== ENCOUNTER 2019-04-06 17:00 | Emergency (ER) | payer MEDICARE, MEDICAID, SELFPAY ==
[2019-04-06 17:05] VITALS: BP 117/87; PULSE 108; RESP 20; TEMP 36.7; O2SAT 96
[2019-04-06 17:51] LABS: Abs Immature Grans 0.04 k/cumm (0.0-0.09); Absolute Basophil Count 0.02 k/cumm (0.0-0.2); Absolute Eosinophil Count 0.08 k/cumm (0.0-0.7); Absolute Monocyte Count 0.73 k/cumm (0.11-0.7); Basophils % 0.2; Eosinophils % 0.7; HCT 38.3 % (36.0-46.0); HGB 13.1 g/dL (12.0-15.5); Immature Grans % 0.3 %; Lymphocytes % 16.7; Mean Corp. HGB Concentration 34.2 g/dL (32.0-36.0); Mean Corpuscular Hemoglobin 30.8 pg (27.0-33.0); Mean Corpuscular Volume 90.1 fL (80-95); Monocytes % 6.1; Platelet Count 361 x1000/uL (130-400); RBC 4.25 m/cumm (4.00-5.20); RBC Distribution Width 13.1 % (11.7-14.6); White Blood Cell Count 11.98 k/cumm (4.4-10.8)
[2019-04-06 17:52] LABS: Bilirubin Negative (Negative); Blood Negative (Negative); Clarity Clear (Clear); Glucose Negative (Negative); Ketones Negative (Negative); Leukocyte Esterase Negative (Negative); Nitrite Negative (Negative); Specific Gravity 1.015 (1.005-1.025); Urobilinogen 0.2 EU/dL (Up TO 0.2)
[2019-04-06] MEDS: Normal Saline 1,000 ML 1000 ML IV ×2 (17:55→19:45)
[2019-04-06 18:05] LABS: ALT 22 U/L (14-59); AST 20 U/L (15-37); Albumin 3.7 g/dL (3.4-5.0); Alkaline Phosphatase 110 U/L (46-116); Anion Gap 7.2 mmol/L (3-11); BUN 8 mg/dL (7-18); Bilirubin, Total 0.3 mg/dL (0.2-1.0); CO2 28.8 mmol/L (21.0-32.0); CREATININE 1.16 mg/dL (0.55-1.02); Calcium 8.7 mg/dL (8.5-10.1); Chloride 103 mmol/L (98-107); Estimated GFR 46.89 (mL/min/1.73m2); Glucose 111 mg/dL (74-106); Lipase 61 U/L (73-393); Potassium 3.9 mmol/L (3.5-5.1); Sodium 139 mmol/L (136-145); Total Protein 7.2 g/dL (6.4-8.2)
--- NOTE | 2019-04-06 18:12 | ED.GENADUL_ITS ---
Discharge Plan Disposition Patient Disposition: HOME Condition: Improving Discharge Details Chief Complaint: Nausea/Vomit/Diar Clinical Impression: Nausea alone, Acute dehydration Primary Care Provider: Diane Mendez ED Provider: Jessica Delgado Home Meds and New Rx's Prescriptions: New promethazine 25 mg tablet 25 mg PO Q6H PRN (Reason: nausea and vomiting) Qty: 20 RF: 0 Discontinued ondansetron 4 mg Tablet,Disintegrating 4 mg PO Q8H PRNRF: 0 ondansetron 4 mg tablet,disintegrating 4 mg PO Q4H PRN (Reason: nausea and vomiting) RF: 0 No Action sucralfate [Carafate] 1 gram tablet 1 gm PO .COMPLEX RF: 0 Benefiber Healthy Shape 5 gram/7.4 gram powder 5 gm PO RF: 0 Atorvastatin Calcium 20 MG tablet 20 mg PO HS RF: 0 olanzapine 10 MG tablet 10 mg PO HS RF: 0 buspirone 10 MG tablet 20 mg PO HS RF: 0 clonazepam 0.5 MG tablet,disintegrating 1 mg PO BID RF: 0 omega-3 fatty acids-fish oil 1 EACH capsule 1 ea PO DAILY RF: 0 calcium carbonate-vitamin D3 [Calcium 500 + D] 1 EACH tablet 1 ea PO DAILY RF: 0 venlafaxine 225 MG tablet extended release 24hr 225 mg PO HS RF: 0 glucosam-chond qs-keidia-nq ac 1 EACH capsule 1 ea PO DAILY RF: 0 Multi-Day Plus Minerals 1 EACH tablet 1 ea PO DAILY RF: 0 amitriptyline 10 MG tablet 20 mg PO HS RF: 0 cyclobenzaprine 10 MG tablet 10 mg PO TID PRN (Reason: Muscle Spasm) Qty: 8 RF: 0 melatonin 5 mg Tablet 5 mg PO HS PRNRF: 0 lisinopril 20 mg Tablet 20 mg PO DAILY RF: 0 Discharge Instructions Instructions: Dehydration (ED), Acute Nausea and Vomiting (ED) Additional Instructions: Drink plenty of fluids. Use nausea medication as prescribed. Stop previously prescribed Zofran. Rest activities as tolerated. Continue Carafate. Follow-up with your primary care provider Thursday as planned Return immediately for any worsening or concerns sooner if needed Medical Decision Making Is a 63-year-old woman presenting to the emergency room for complaints of nausea which has been vague and lasted for the last 9 days. Patient denies active chest pain, difficulty breathing or shortness of breath or wheezing. Patient does report she was seen here earlier this week and ultimately discharged home. Patient has been using Zofran without relief of her nausea symptoms. Patient returns to the emergency room today as she ultimately is reporting feeling dehydrated at this time. Patient denies any associated abdominal pain or bowel changes. Patient is moving her bowels normally. Patient does report a history of cyclic nausea. Prior to last year patient was having cyclic vomiting which fully resolved after having gastric surgery to release her lower stomach sphincter and to repair hiatal hernia. Patient reports vomiting since resolved. Patient reports no chills. She does report a temperature of 101 noted yesterday since resolved. Patient denies any dysuria, urgency or frequency. Patient reports this is similar nausea to what she was experiencing earlier this week during her previous evaluation however has not resolved and is now having difficulty managing fluids. Recent CT from 04/02 ABDOMEN: Lung Bases: No acute findings in the lung bases Liver: Normal density. No measurable mass. Gallbladder and biliary tract: No radiodense calculus or dilation. Pancreas: Normal density, no abnormal calcifications or inflammatory process. Stable calcification associated with the uncinate process. Spleen: Normal. Kidneys: Normal size, contour and axis. There has been slight increase in the dilatation of the left renal pelvis compared to the prior examination. The ureter is of normal caliber. The findings are suspicious for UPJ obstruction without calcified stone . No masses seen. Adrenal glands: No masses seen. Lymph nodes: Within normal limits. Abdominal Aorta: Abdominal portion non-dilated. PELVIS: Bladder: Symmetric distention, no gross wall thickening. Bowel: No obstruction or bowel wall thickening. Normal appendix is visualized. Peritoneal cavity: No ascites, collection or mesenteric inflammatory response. Reproductive organs: Stable calcification associated with the uterus likely reflecting a fibroid. Bones: Mild degenerative changes. IMPRESSION: Slight increase in size of the left hydronephrosis since the prior examination from 12/05/2018. No calcified stone is identified. Patient's kidney function improved compared to 4 days ago. Patient's labs otherwise reassuring. Patient reevaluated after IV fluids and Phenergan and she feels significantly better. Symptoms have entirely resolved. Patient requesting prescription for Phenergan as it was more helpful than the Zofran previously prescribed. Patient received a single liter of IV fluid he had not urinated so a second liter was provided. Reevaluation after second liter of fluid and patient continues to feel improved, does have sense of urgency to urinate at this time. Will provide to go Phenergan overnight and a prescription for home. Patient does have a follow-up in place with her PCP in 2 days. Counseled regarding alarming signs and sy mptoms for which patient should have immediate return. Patient feels comfortable discharge home at this time and will return for any worsening or concerns. The patient was stable and requested discharge. Prior to discharge, my usual and customary return precautions were reviewed with the patient - this included follow-up instructions and reasons to return to the Emergency Department if conditions worsens, does not improve as expected, or other new concerns arise. HPI General Date/Time Provider Initiated Documentation: 04/06/19 17:02 . HPI Narrative: Is a 63-year-old woman presenting to the emergency room for complaints of generalized nausea which is been present for the last 9 days. Patient was evaluated in the emergency room earlier this week for similar complaints. Patient discharged with diagnosis of nausea and acute kidney injury. Patient reports persistent nausea despite use of Zofran at home which is on relieving of her symptoms. Patient reports difficulty eating and drinking due to nausea. Patient returns today as she is feeling dehydrated. Patient reports total food aversion. Patient reports nausea throughout the entire day, wakes and goes to bed with it. Patient reports a history of similar. Patient does report similar episodic nausea approximately 4 times per year however this is longer lasting than her typical. Patient does report she had approximately 1 year ago had surgery for vomiting due to hiatal hernia and constricted stomach sphincter, the surgery was done a year ago and fully relieved her vomiting. Patient reports persistent nausea however vomiting has improved. Patient denies any abdominal pain throughout the last 9 days. Denies back pain. She does report a temperature of 101 noted yesterday, today improved. Patient denies headache or dizziness. Patient denies any upper respiratory symptoms, cough, nasal congestion, sore throat. Patient denies bowel changes. She does report moving her bowels normally yesterday. She does occasionally struggle with constipation but does not feel constipated at this time. No chest pain, difficulty breathing or shortness of breath or wheezing. No other concerns or complaints at this time. Related Data Home Medications Medication Instructions Recorded Confirmed Atorvastatin Calcium 20 mg PO HS tab-cap 12/17/16 04/06/19 Multi-Day Plus Minerals 1 ea PO DAILY 12/17/16 04/06/19 buspirone 20 mg PO HS tab-cap 12/17/16 04/06/19 calcium carbonate-vitamin D3 1 ea PO DAILY 12/17/16 04/06/19 [Calcium 500 + D] clonazepam 1 mg PO BID tab-cap 12/17/16 04/06/19 glucosam-chond ui-kicfxp-xo ac 1 ea PO DAILY 12/17/16 04/06/19 olanzapine 10 mg PO HS tab-cap 12/17/16 04/06/19 omega-3 fatty acids-fish oil 1 ea PO DAILY 12/17/16 04/06/19 venlafaxine 225 mg PO HS tab-cap 12/17/16 04/06/19 amitriptyline 20 mg PO HS 02/03/17 04/06/19 cyclobenzaprine 10 mg PO TID PRN #8 tab 02/19/17 04/06/19 sucralfate 1 gram tablet 1 gm PO .COMPLEX 01/04/19 04/06/19 wheat dextrin 5 gram/7.4 gram oral 5 gm PO 01/04/19 01/04/19 powder lisinopril 20 mg PO DAILY 04/02/19 04/06/19 melatonin 5 mg PO HS PRN 04/02/19 04/06/19 promethazine 25 mg PO Q6H PRN #20 tab 04/06/19 Previous Rx's Medication Instructions Recorded cyclobenzaprine 10 mg PO TID PRN #8 tab 02/19/17 promethazine 25 mg PO Q6H PRN #20 tab 04/06/19 Allergies Allergy/AdvReac Type Severity Reaction Status Date / Time trazodone AdvReac Mild WIRED Unverified 04/06/19 17:10 General Stated Complaint: Nausea/Vomit/Diar EBONY: 3 Review of Systems All systems reviewed & are unremarkable except as noted in HPI and below Constitutional Constitutional: Denies chills, Denies fatigue, Denies fever(s), Denies headache(s) and Denies malaise ENT Ears, Nose, Mouth, and Throat: Denies otalgia, Denies headache(s), Denies nasal discharge, Denies sinus pain, Denies sinus pressure and Denies sore throat Cardiovascular Cardiovascular: Denies chest pain and Denies dyspnea Respiratory Respiratory: Denies cough, Denies dyspnea and Denies wheezing Gastrointestinal Gastrointestinal: Denies abdominal pain, Denies diarrhea, Reports nausea and De nies vomiting Genitourinary Genitourinary: Denies hematuria and Denies dysuria Neurologic Neurologic: Denies headache(s) Endocrine Endocrine: Denies fatigue Allergic/Immunologic Allergic/Immunologic: Denies wheezing [facility] Medical History Anemia Anxiety Benign tumor of pituitary gland Chronic vomiting Depression GERD (gastroesophageal reflux disease) Grief reaction Hiatal hernia (Chronic) History of hepatitis History of HPV infection History of Lyme disease Hyperlipidemia Joint pain Low back pain Neck pain PTSD (post-traumatic stress disorder) Shortness of breath Social History Smoking/Tobacco Use Status: Current every day Tobacco Type: cigarettes Alcohol Intake: current Alcohol Intake frequency: holidays/special occasions only Alcohol type: beer Drug use: Occasionally Substance use type: marijuana Do you feel safe at home: Yes Do you feel safe in your relationship?: Yes Exam Narrative Exam Narrative: CONST:in no acute distress. Alert and oriented. HENMT: Head nomocephalic, normal to inspection. Atraumatic. Hearing grossly normal. TMs appear normal bilaterally, no pharyngeal erythema. Dry mucous membranes present. EYES: General normal appearance. Alignment normal. Eyelids normal. Conjunctiva normal. NECK: Normal visual inspection. FROM. Trachea midline. No Midline tenderness. CHEST: Normal insepection of the chest. RESP: Normal respiratory effort. Speaking full sentences. No cough. No audible wheezing. No retractions. Breath sounds clear, full and equal bilaterally. No rhonchi, rales or wheezing. CARDIO: No JVD. No murmur, regular rate and rhythm GI: Abdomen is soft, bowel sounds present in all 4 quadrants, nontender. No peritoneal signs, rebound or guarding MUSCULOSKELETAL: Normal Gait. FROM of all extremities. SKIN: Normal. Dry. No rashes. NEURO: Alert and awake. Speech clear. PSYCH: Normal affect. Cooperative. Course Vital Signs Vital signs: Vital Signs Temperature 36.7 C 04/06/19 17:05 Pulse 108 H 04/06/19 17:05 Respiratory Rate 04/06/19 17:05 Blood Pressure 117/87 04/06/19 17:05 Pulse Oximetry 96 04/06/19 17:05 Temperature 36.7 C 04/06/19 17:05 Temperature Source Skin 04/06/19 17:05 Pulse 108 H 04/06/19 17:05 Respiratory Rate 20 04/06/19 17:05 Respiratory Effort Non-Labored 04/06/19 17:07 Blood Pressure 117/87 04/06/19 17:05 Blood Pressure Position Sitting 04/06/19 17:05 Pulse Oximetry 96 04/06/19 17:05 Oxygen Delivery Method Room Air 04/06/19 17:05 Oxygen Flow Rate 0 04/06/19 17:05 Lab/Test Results Lab/Test Results: 04/06/19 17:48 Urine - Clean Catch Urine Culture - Pending Laboratory Tests Range/Units 04/06/19 04/06/19 16:30 16:30 WBC (4.4-10.8) k/cumm 11.98 H RBC (4.00-5.20) m/cumm 4.25 Hgb (12.0-15.5) g/dL 13.1 Hct (36.0-46.0) % 38.3 MCV (80-95) fL 90.1 MCH (27.0-33.0) pg 30.8 MCHC (32.0-36.0) g/dL 34.2 RDW (11.7-14.6) % 13.1 Plt Count (130-400) x1000/uL 361 MPV (8.0-11.0) fL 9.0 Immature Gran % % 0.3 Neutrophils % 76.0 Lymphocytes % 16.7 Monocytes % 6.1 Eosinophils % 0.7 Basophils % 0.2 Absolute Neutrophils (1.2-6.7) k/cumm 9.10 H Absolute Lymphocytes (1.2-3.4) k/cumm 2.00 Absolute Monocytes (0.11-0.7) k/cumm 0.73 H Absolute Eosinophils (0.0-0.7) k/cumm 0.08 Absolute Basophils (0.0-0.2) k/cumm 0.02 Sodium (136-145) mmol/L 139 Potassium (3.5-5.1) mmol/L 3.9 Chloride (98-107) mmol/L 103 Carbon Dioxide (21.0-32.0) mmol/L 28.8 Anion Gap (3-11) mmol/L 7.2 BUN (7-18) mg/dL 8 Creatinine (0.55-1.02) mg/dL 1.16 H Estimated GFR/1.73 m2 (mL/min/1.73m2) 46.89 Glucose (74-106) mg/dL 111 H Calcium (8.5-10.1) mg/dL 8.7 Total Bilirubin (0.2-1.0) mg/dL 0.3 AST (15-37) U/L 20 ALT (14-59) U/L 22 Alkaline Phosphatase (46-116) U/L 110 Total Protein (6.4-8.2) g/dL 7.2 Albumin (3.4-5.0) g/dL 3.7 Lipase (73-393) U/L 61
[2019-04-06 21:03] VITALS: BP 134/98; PULSE 78; RESP 18; TEMP 36.4; O2SAT 98
[2019-04-06 21:09] VITALS: BP 118/80; PULSE 90; RESP 18; TEMP 36.4; O2SAT 98
== END 2019-04-06 21:07 | disposition home or self-care (01) ==
PROVIDERS: Emergency Provider Physician Assistant; PCP Nurse Practitioner Family
DX: R11.0 Nausea (principal); E86.0 Dehydration
CPT/HCPCS: 80053; 83690; 96361; 96374; 99284; 81003; 85025; 87086

== ENCOUNTER 2019-09-29 17:42 | Emergency (ER) | payer MEDICARE, MEDICAID, SELFPAY ==
[2019-09-29] VITALS (29 sets, daily range): BP systolic 100–126; BP diastolic 65–91; PULSE 77–131; RESP 8–22; TEMP 37.1; O2SAT 92–99
[2019-09-29] MEDS: Lactated Ringers 1,000 ML 1000 ML IV ×2 (18:10→18:54)
[2019-09-29] MEDS: Ondansetron 4 MG/2 ML VIAL IVP (18:10)
[2019-09-29 18:12] LABS: Abs Immature Grans 0.03 10^3/uL (0.0-0.06); Absolute Basophil Count 0.04 10^3/uL (0.0-0.2); Absolute Eosinophil Count 0.19 10^3/uL (0.0-0.7); Absolute Lymphocyte Count 2.24 10^3/uL (1.2-3.4); Absolute Monocyte Count 0.69 10^3/uL (0.1-0.8); Absolute Neutrophil Count 7.49 10^3/uL (1.2-6.7); Basophils % 0.4; Eosinophils % 1.8; HCT 40.1 % (36.0-46.0); HGB 13.4 g/dL (11.2-15.7); Immature Grans % 0.3; MCH 30.2 pg (27.0-33.0); MCHC 33.4 % (32.0-36.0); MCV 90.3 fL (80-95); MPV 9.4 fL (8.0-11.0); Monocytes % 6.5; Nucleated RBC 0 %; Platelet Count 323 10^3/uL (130-400); RBC 4.44 10^6/uL (3.93-5.22); RDW 12.2 % (11.7-14.6); RDW-SD 40.1 fL; WBC 10.68 10^3/uL (4.4-10.8)
[2019-09-29] MEDS: Normal Saline Flush 10 ML SYR IVP (18:14)
--- NOTE | 2019-09-29 18:16 | ED.GENADUL_ITS ---
Discharge Plan Disposition Patient Disposition: HOME Condition: Stable Discharge Details Chief Complaint: Nausea/Vomit/Diar Clinical Impression: Nausea & vomiting Primary Care Provider: Diane Mendez ED Provider: Elia Saeed Home Meds and New Rx's Prescriptions: Continued sucralfate [Carafate] 1 gram tablet 1 gm PO .COMPLEX RF: 0 Benefiber Healthy Shape 5 gram/7.4 gram powder 5 gm PO DAILY RF: 0 Atorvastatin Calcium 20 MG tablet 20 mg PO HS RF: 0 olanzapine 10 MG tablet 10 mg PO HS RF: 0 buspirone 10 MG tablet 20 mg PO HS RF: 0 clonazepam 0.5 MG tablet,disintegrating 1 mg PO BID RF: 0 omega-3 fatty acids-fish oil 1 EACH capsule 1 ea PO DAILY RF: 0 calcium carbonate-vitamin D3 [Calcium 500 + D] 1 EACH tablet 1 ea PO DAILY RF: 0 venlafaxine 225 MG tablet extended release 24hr 225 mg PO HS RF: 0 glucosam-chond gy-pnskfx-sk ac 1 EACH capsule 1 ea PO DAILY RF: 0 Multi-Day Plus Minerals 1 EACH tablet 1 ea PO DAILY RF: 0 cyclobenzaprine 10 MG tablet 10 mg PO TID PRN (Reason: Muscle Spasm) Qty: 8 RF: 0 melatonin 5 mg Tablet 5 mg PO HS PRNRF: 0 lisinopril 20 mg Tablet 20 mg PO DAILY RF: 0 promethazine 25 mg tablet 25 mg PO Q6H PRN (Reason: nausea and vomiting) Qty: 20 RF: 0 Discharge Instructions Instructions: Acute Nausea and Vomiting (ED) Additional Instructions: Please follow-up with your occupational physician. Please follow-up with your primary care physician. Call tomorrow to confirm follow-up. Maintain a clear liquid diet today and tomorrow morning. If you tolerate this diet, proceed to soft bland foods like rice tomorrow night. Advance diet slowly thereafter as tolerated. Return to the emergency room if any worsening or new concerning symptoms. Referrals: Diane Mendez [Primary Care Provider] - Discharge Data Discharge Date/Time-TO BE ENTERED AT DEPARTURE: 09/29/19 20:25 Medical Decision Making 1820??63-year-old female with history of chronic intermittent episodes of nausea and vomiting, followed by gastroenterology at [facility] that does not yet know etiology for her chronic ongoing symptoms, here with exacerbation of nausea and vomiting that is typical for moderate to severe flares. Abdominal exam is benign. Patient is tachycardic, normotensive, dehydrated. We will give IV fluid bolus rehydration and Zofran IV for nausea. Plan to check electrolytes, LFTs for hepatic disease, and lipase to assess for pancreatitis. 2020 --patient received 2 L of crystalloid and is feeling much better. Patient tolerating oral fluids. Labs reviewed: Hypomagnesemia mild noted, patient was given Mag-Ox 400 mg. Plan for discharge with outpatient follow-up. Patient is scheduled to follow-up with gastroenterology which I encouraged her to keep and also follow-up with her primary care physician. She understands importance of timely follow-up. Disposition decision was made weighing the risks and benefits of hospitalization versus outpatient treatment, the risk for further decompensation, and the patient's wishes. The patient was stable and requested discharge. Prior to discharge, my usual and customary return precautions were reviewed with the patient - this included follow-up instructions and reason to return to the emergency department if condition worsens, does not improve as expected, or other new concerns arise. HPI General Mode of arrival: ambulatory . Date/Time Provider Initiated Documentation: 09/29/19 17:57 . Limitations to Documentation: no limitations . Information obtained by: patient . HPI Narrative: 63-year-old female with history of chronic intermittent episodes of nausea and vomiting that occur monthly for the past 20 years, here today with chief complaint of nausea. Patient notes nausea and vomiting over the past 3 days. Unable to tolerate oral fluids. Feels dehydrated and has a headache. She feels generally weak. She has no focal weakness. No fevers. No diarrhea. She notes she has not had a bowel over the past 3 days. Patient denies abdominal pain. Patient denies chest pain. Related Data Home Medications Medication Instructions Recorded Confirmed Atorvastatin Calcium 20 mg PO HS tab-cap 12/17/16 09/29/19 Multi-Day Plus Minerals 1 ea PO DAILY 12/17/16 09/29/19 buspirone 20 mg PO HS tab-cap 12/17/16 09/29/19 calcium carbonate-vitamin D3 1 ea PO DAILY 12/17/16 09/29/19 [Calcium 500 + D] clonazepam 1 mg PO BID tab-cap 12/17/16 09/29/19 glucosam-chond fi-oipulo-qu ac 1 ea PO DAILY 12/17/16 09/29/19 olanzapine 10 mg PO HS tab-cap 12/17/16 09/29/19 omega-3 fatty acids-fish oil 1 ea PO DAILY 12/17/16 09/29/19 venlafaxine 225 mg PO HS tab-cap 12/17/16 09/29/19 cyclobenzaprine 10 mg PO TID PRN #8 tab 02/19/17 09/29/19 sucralfate 1 gram tablet 1 gm PO .COMPLEX 01/04/19 09/29/19 wheat dextrin 5 gram/7.4 gram oral 5 gm PO DAILY 01/04/19 09/29/19 powder lisinopril 20 mg PO DAILY 04/02/19 09/29/19 melatonin 5 mg PO HS PRN 04/02/19 09/29/19 promethazine 25 mg PO Q6H PRN #20 tab 04/06/19 09/29/19 Previous Rx's Medication Instructions Recorded cyclobenzaprine 10 mg PO TID PRN #8 tab 02/19/17 promethazine 25 mg PO Q6H PRN #20 tab 04/06/19 Allergies Allergy/AdvReac Type Severity Reaction Status Date / Time trazodone AdvReac Mild WIRED Unverified 09/29/19 17:57 General Stated Complaint: Nausea/Vomit/Diar EBONY: 3 Review of Systems All systems reviewed & are unremarkable except as noted in HPI and below Constitutional Constitutional: Denies fever(s) and Reports headache(s) ENT Ears, Nose, Mouth, and Throat: Reports headache(s) Gastrointestinal Gastrointestinal: Denies abdominal pain, Reports nausea and Reports vomiting Genitourinary Genitourinary: Denies dysuria Neurologic Neurologic: Reports headache(s) [facility] Medical History Anemia Anxiety Benign tumor of pituitary gland Chronic vomiting Depression GERD (gastroesophageal reflux disease) Grief reaction Hiatal hernia (Chronic) History of hepatitis History of HPV infection History of Lyme disease Hyperlipidemia Joint pain Low back pain Neck pain PTSD (post-traumatic stress disorder) Shortness of breath Surgical History EGD - MAC (01/13/17) Social History Smoking/Tobacco Use Status: Current every day Tobacco Type: cigarettes Alcohol Intake: current Alcohol Intake frequency: holidays/special occasions only Alcohol type: beer Drug use: Occasionally Substance use type: marijuana Do you feel safe at home: Yes Do you feel safe in your relationship?: Yes Exam Const General: cooperative and no acute distress HENMT Mouth: mucous membranes dry Eyes Conjunctivae: normal conjunctivae Sclera: normal sclerae Neck Neck: trachea midline Resp Auscultation: clear to auscultation bilaterally, no rales, no rhonchi and no wheezes Cardio Jugular venous pressure: no JVD Rate: regular rate and not tachycardic Rhythm: regular rhythm GI Palpation: soft, not firm, no guarding, no masses, not rigid and nontender Skin General skin exam: no rashes or lesions noted Neuro General: patient alert, patient awake and tone normal Cognition: normal cognition Gait: normal gait Motor: muscle tone normal throughout Extrem General: no edema Psych Appearance: grossly normal Mental Status: mental status grossly normal Speech and Movement: speech and movement normal Course Vital Signs Vital signs: Vital Signs Temperature 37.1 C 09/29/19 17:51 Pulse 131 H 09/29/19 17:51 Respiratory Rate 16 09/29/19 17:51 Blood Pressure 118/75 09/29/19 17:51 Pulse Oximetry 95 09/29/19 17:51 Temperature 37.1 C 09/29/19 17:51 Temperature Source Temporal Artery Scan 09/29/19 17:51 Pulse 131 H 09/29/19 17:51 Respiratory Rate 16 09/29/19 17:51 Respiratory Effort Non-Labored 09/29/19 17:56 Blood Pressure 118/75 09/29/19 17:51 Blood Pressure Position Sitting 09/29/19 17:51 Pulse Oximetry 95 09/29/19 17:51 Oxygen Delivery Method Room Air 09/29/19 17:51 Oxygen Flow Rate 0 09/29/19 17:51 Pain Level 7 09/29/19 17:51 Lab/Test Results Lab/Test Results: Laboratory Tests Range/Units 09/29/19 18:00 WBC (4.4-10.8) 10^3/uL 10.68 RBC (3.93-5.22) 10^6/uL 4.44 Hgb (11.2-15.7) g/dL 13.4 Hct (36.0-46.0) % 40.1 MCV (80-95) fL 90.3 MCH (27.0-33.0) pg 30.2 MCHC (32.0-36.0) % 33.4 RDW (11.7-14.6) % 12.2 Plt Count (130-400) 10^3/uL 323 MPV (8.0-11.0) fL 9.4 Immature Gran % 0.3 Neutrophils % 70.0 Lymphocytes % 21.0 Monocytes % 6.5 Eosinophils % 1.8 Basophils % 0.4 Absolute Neutrophils (1.2-6.7) 10^3/uL 7.49 H Absolute Lymphocytes (1.2-3.4) 10^3/uL 2.24 Absolute Monocytes (0.1-0.8) 10^3/uL 0.69 Absolute Eosinophils (0.0-0.7) 10^3/uL 0.19 Absolute Basophils (0.0-0.2) 10^3/uL 0.04
[2019-09-29 18:26] LABS: ALT 19 U/L (14-59); AST 13 U/L (15-37); Albumin 4.4 g/dL (3.4-5.0); Alkaline Phosphatase 104 U/L (46-116); Anion Gap 9.7 mmol/L (3-11); BUN 12 mg/dL (7-18); Bilirubin, Total 0.6 mg/dL (0.2-1.0); CO2 25.3 mmol/L (21.0-32.0); CREATININE 1.22 mg/dL (0.55-1.02); Chloride 99 mmol/L (98-107); Estimated GFR 44.23 (mL/min/1.73m2); Glucose 132 mg/dL (74-106); Lipase 79 U/L (73-393); Magnesium 1.7 mg/dL (1.8-2.4); Sodium 134 mmol/L (136-145)
[2019-09-29] MEDS: Ibuprofen 400 MG TAB PO (18:55)
[2019-09-29] MEDS: Magnesium Oxide 400 MG TAB PO (18:55)
== END 2019-09-29 20:25 | disposition home or self-care (01) ==
PROVIDERS: Emergency Provider Student in an Organized Health Care Education/Training Program; PCP Nurse Practitioner Family
DX: R11.2 Nausea with vomiting, unspecified (principal); E86.0 Dehydration; E83.42 Hypomagnesemia
CPT/HCPCS: 36415; 80053; 83690; 96361; 96374; 99284; 83735; 85025; J2405

== ENCOUNTER 2019-11-22 18:28 | Outpatient (REF) | payer MEDICARE, MEDICAID, SELFPAY ==
[2019-11-22 18:45] LABS: Anion Gap 9.1 mmol/L (3-11); BUN 13 mg/dL (7-18); CO2 27.9 mmol/L (21.0-32.0); CREATININE 1.23 mg/dL (0.55-1.02); Calcium 10.4 mg/dL (8.5-10.1); Chloride 98 mmol/L (98-107); Estimated GFR 43.68 (mL/min/1.73m2); Glucose 118 mg/dL (74-106); Sodium 135 mmol/L (136-145)
[2019-11-22 18:50] LABS: Hemoglobin A1C 6.2 % (<5.7)
== END 2019-11-22 18:48 ==
LOC: NCHCN 18:28
PROVIDERS: PCP Nurse Practitioner Family; Visit Provider Nurse Practitioner Family
DX: R11.2 Nausea with vomiting, unspecified (principal); R55 Syncope and collapse; R73.09 Other abnormal glucose
CPT/HCPCS: 80048; 83036

== ENCOUNTER 2019-11-28 11:06 | Emergency (ER) | payer MEDICARE, MEDICAID, SELFPAY ==
[2019-11-28] VITALS (29 sets, daily range): BP systolic 84–163; BP diastolic 63–97; PULSE 75–106; RESP 10–19; TEMP 36.6–36.8; O2SAT 96–100
--- NOTE | 2019-11-28 11:00 | RT.EKG_ITS ---
APPROVED REPORT Exam: Resting ECG Patient Location: E HR:76 bpm ECG Measurements Heart Rate 76 AXIS MA 184 P 44 QRSd 81 QRS 45 QT 332 T 47 QTc 374 Conclusion Sinus rhythm...normal P axis, V-rate 60- 99
[2019-11-28] MEDS: Normal Saline 1,000 ML 150 ML IV (11:33)
[2019-11-28 11:35] LABS: Abs Immature Grans 0.03 10^3/uL (0.0-0.06); Absolute Basophil Count 0.07 10^3/uL (0.0-0.2); Absolute Eosinophil Count 0.08 10^3/uL (0.0-0.7); Absolute Lymphocyte Count 1.66 10^3/uL (1.2-3.4); Absolute Monocyte Count 0.43 10^3/uL (0.1-0.8); Absolute Neutrophil Count 6.71 10^3/uL (1.2-6.7); Basophils % 0.8; Eosinophils % 0.9; HCT 38.2 % (36.0-46.0); HGB 12.9 g/dL (11.2-15.7); Immature Grans % 0.3; Lymphocytes % 18.5; MCH 30.7 pg (27.0-33.0); MCHC 33.8 % (32.0-36.0); MPV 9.1 fL (8.0-11.0); Monocytes % 4.8; Neutrophils % 74.7; Nucleated RBC 0 %; Platelet Count 387 10^3/uL (130-400); RDW 12.1 % (11.7-14.6); RDW-SD 40.2 fL; WBC 8.98 10^3/uL (4.4-10.8)
[2019-11-28 11:49] LABS: ALT 18 U/L (14-59); AST 11 U/L (15-37); Alkaline Phosphatase 106 U/L (46-116); Anion Gap 9.5 mmol/L (3-11); BUN 14 mg/dL (7-18); Bilirubin, Total 0.4 mg/dL (0.2-1.0); CO2 26.5 mmol/L (21.0-32.0); CREATININE 1.28 mg/dL (0.55-1.02); Calcium 9.8 mg/dL (8.5-10.1); Chloride 99 mmol/L (98-107); Estimated GFR 41.72 (mL/min/1.73m2); Glucose 142 mg/dL (74-106); Magnesium 1.8 mg/dL (1.8-2.4); Potassium 4.1 mmol/L (3.5-5.1); Sodium 135 mmol/L (136-145); Total Protein 7.7 g/dL (6.4-8.2)
--- NOTE | 2019-11-28 12:00 | DI.CT_ITS ---
EXAM: CT HEAD WO CLINICAL HISTORY: nausea, past med hx of benign pituitary mass. TECHNIQUE: Imaging Protocol: Axial computed tomography images with coronal and sagittal reformatted images were created and reviewed COMPARISON: MR MRI - BRAIN W/WO CONTRAST from 10/06/2016 FINDINGS: Ventricles and Extra axial spaces: Normal in size and morphology for the patient's age. Hemorrhage: None. Cerebral parenchyma: Normal. Midline shift: None. Brainstem/Cerebellum: Normal. Calvarium: Normal. Visualized Paranasal sinuses/Mastoids: Clear. Soft Tissues: Unremarkable. IMPRESSION: No acute intracranial process. Findings were discussed with the emergency department on the date of the examination. RADIATION DOSE DELIVERED: 652.25mGy.cm Total DLP DATA REPOSITORY: All CT scans at this facility are submitted to the National Radiology Data Registry (NRDR) Dose Index Registry (DIR) with the [employer] ([employer]). RADIATION OPTIMIZATION: All CT scans at this facility use at least one of these dose optimization te chniques: automated exposure control; mA and/or kV adjustment per patient size (includes targeted exa ms where dose is matched to clinical indication); or iterative reconstruction.
[2019-11-28] MEDS: Prochlorperazine 10 MG/2 ML VIAL IVP (12:14)
[2019-11-28] MEDS: Normal Saline 1,000 ML 1000 ML IV (12:19)
[2019-11-28 12:41] LABS: TSH (W/Ref FT4) 1.25 uIU/mL (0.36-3.74)
--- NOTE | 2019-11-28 13:23 | ED.GENADUL_ITS ---
Discharge Plan Disposition Patient Disposition: HOME Condition: Stable Discharge Details Clinical Impression: Nausea Primary Care Provider: Diane Mendez ED Provider: Elia Saeed Home Meds and New Rx's Prescriptions: Continued sucralfate [Carafate] 1 gram tablet 1 gm PO .COMPLEX RF: 0 Benefiber Healthy Shape 5 gram/7.4 gram powder 5 gm PO DAILY RF: 0 Atorvastatin Calcium 20 MG tablet 20 mg PO HS RF: 0 olanzapine 10 MG tablet 10 mg PO HS RF: 0 clonazepam 0.5 MG tablet,disintegrating 1 mg PO BID RF: 0 omega-3 fatty acids-fish oil 1 EACH capsule 1 ea PO DAILY RF: 0 calcium carbonate-vitamin D3 [Calcium 500 + D] 1 EACH tablet 1 ea PO DAILY RF: 0 venlafaxine 225 MG tablet extended release 24hr 225 mg PO HS RF: 0 glucosam-chond mv-npllng-[id number] ac 1 EACH capsule 1 ea PO DAILY RF: 0 Multi-Day Plus Minerals 1 EACH tablet 1 ea PO DAILY RF: 0 prochlorperazine maleate 10 mg tablet 10 mg PO PRN PRNRF: 0 cyclobenzaprine 10 MG tablet 10 mg PO TID PRN (Reason: Muscle Spasm) Qty: 8 RF: 0 melatonin 5 mg Tablet 5 mg PO HS PRNRF: 0 lisinopril 20 mg Tablet 20 mg PO DAILY RF: 0 promethazine 25 mg tablet 25 mg PO Q6H PRN (Reason: nausea and vomiting) Qty: 20 RF: 0 Discharge Instructions Instructions: Acute Nausea and Vomiting (ED) Additional Instructions: Please drink small amounts of fluid, frequently in order to stay hydrated. Please contact your primary care physician to arrange follow-up. 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 Return to the ER for any worsening or new concerning symptoms. Referrals: Diane Mendez [Primary Care Provider] - Medical Decision Making [id number]??64-year-old female with history of chronic intermittent nausea, benign tumor of the pituitary gland noted past medical history, GERD, here with exacerbation of nausea, not tolerating oral intake. Abdominal exam benign. Considered electrolyte abnormalities. Labs reviewed and mild hyponatremia noted. Patient's creatinine is slightly elevated at 1.28 which is her baseline. Patient blood pressure is in the upper 80s. Plan to give IV fluid bolus for hypovolemia. We will give antiemetic IV and reassess. Patient does have mild headache and prior history of pituitary tumor. Consider potential enlarged tumor as cause of nausea. CT of the head was obtained and interpreted by radiology: negative. Screening ECG was reviewed and interpreted by me: Nondiagnostic, please see report. --Patient reassessed and feels better. Tolerating oral intake. Plan for outpatient follow-up with PCP and gastroenterology. She has an appointment scheduled with GI on Thursday. Disposition decision was made weighing the risks and benefits of hospitalization versus outpatient treatment, the risk for further decompensation, and the patient's wishes. The patient was stable and requested discharge. Prior to discharge, my usual and customary return precautions were reviewed with the patient - this included follow-up instructions and reason to return to the emergency department if condition worsens, does not improve as expected, or other new concerns arise. HPI General Mode of arrival: ambulatory . Date/Time Provider Initiated Documentation: 11/28/19 11:08 . Limitations to Documentation: no limitations . Information obtained by: patient . HPI Narrative: 64-year-old female with history of chronic intermittent nausea for the past couple years, currently being followed by gastroenterology and has not negative work-up including endoscopy and colonoscopy to date, here with chief complaint of nausea. Patient notes nausea over the past 5 days. Symptoms have persisted. Denies associated vomiting. She states that she has not eating or drinking because of the nausea. She has been taking promethazine and prochlorperazine as prescribed -these are not helping. Patient notes associated generalized weakness and generally does not feel well. She states that she has had intermittent low-grade fever of 99 ?F over the past couple days. Patient notes that she has had a bowel movement in 3 days but states she has not been eating. She denies associated abdominal pain. Related Data Home Medications Medication Instructions Recorded Confirmed Atorvastatin Calcium 20 mg PO HS tab-cap 12/17/16 11/28/19 Multi-Day Plus Minerals 1 ea PO DAILY 12/17/16 11/28/19 calcium carbonate-vitamin D3 1 ea PO DAILY 12/17/16 11/28/19 [Calcium 500 + D] clonazepam 1 mg PO BID tab-cap 12/17/16 11/28/19 glucosam-chond [id number]-popmdy-[id number] ac 1 ea PO DAILY 12/17/16 11/28/19 olanzapine 10 mg PO HS tab-cap 12/17/16 11/28/19 omega-3 fatty acids-fish oil 1 ea PO DAILY 12/17/16 11/28/19 venlafaxine 225 mg PO HS tab-cap 12/17/16 11/28/19 cyclobenzaprine 10 mg PO TID PRN #8 tab 02/19/17 11/28/19 sucralfate 1 gram tablet 1 gm PO .COMPLEX 01/04/19 11/28/19 wheat dextrin 5 gram/7.4 gram oral 5 gm PO DAILY 01/04/19 11/28/19 powder lisinopril 20 mg PO DAILY 04/02/19 11/28/19 melatonin 5 mg PO HS PRN 04/02/19 11/28/19 promethazine 25 mg PO Q6H PRN #20 tab 04/06/19 11/28/19 prochlorperazine maleate 10 mg PO PRN PRN 11/28/19 11/28/19 Previous Rx's Medication Instructions Recorded cyclobenzaprine 10 mg PO TID PRN #8 tab 02/19/17 promethazine 25 mg PO Q6H PRN #20 tab 04/06/19 Allergies Allergy/AdvReac Type Severity Reaction Status Date / Time trazodone AdvReac Mild WIRED Unverified 11/28/19 11:19 General Stated Complaint: Nausea/Vomit/Diar EBONY: 3 Review of Systems All systems reviewed & are unremarkable except as noted in HPI and below Constitutional Constitutional: Reports as per HPI Cardiovascular Cardiovascular: Denies chest pain Respiratory Respiratory: Denies cough Gastrointestinal Gastrointestinal: Reports as per HPI [facility] Medical History (Updated 11/28/19 @ 15:10 by Elia Saeed MD) Anemia Anxiety Benign tumor of pituitary gland Chronic vomiting Depression GERD (gastroesophageal reflux disease) Grief reaction Hiatal hernia History of hepatitis History of HPV infection History of Lyme disease Hyperlipidemia Joint pain Low back pain Neck pain PTSD (post-traumatic stress disorder) Shortness of breath Surgical History EGD - MAC (01/13/17) Social History Smoking/Tobacco Use Status: Current every day Tobacco Type: cigarettes Alcohol Intake: current Alcohol Intake frequency: holidays/special occasions only Alcohol type: beer Drug use: Occasionally Substance use type: marijuana Do you feel safe at home: Yes Do you feel safe in your relationship?: Yes Exam Const General: cooperative and no acute distress HENID Head: normocephalic Mouth: moist mucous membranes Eyes Conjunctivae: normal conjunctivae Sclera: normal sclerae Neck Neck: trachea midline and supple Resp Auscultation: clear to auscultation bilaterally, no rales, no rhonchi and no wheezes Cardio Jugular venous pressure: no JVD Rate: regular rate and not tachycardic Rhythm: regular rhythm GI Palpation: soft, not firm, no guarding, no masses, not rigid and nontender Skin General skin exam: no rashes or lesions noted Neuro General: patient alert, patient awake and tone normal Extrem General: no edema Psych Appearance: grossly normal Mental Status: mental status grossly normal Speech and Movement: speech and movement normal Course Vital Signs Vital signs: Vital Signs Temperature 36.6 C 11/28/19 11:15 Pulse 91 H 11/28/19 11:15 Respiratory Rate 12 11/28/19 11:15 Blood Pressure 114/91 H 11/28/19 11:15 Pulse Oximetry 100 11/28/19 11:15 Temperature 36.6 C 11/28/19 13:05 Temperature Source Skin 11/28/19 11:15 Pulse 80 11/28/19 13:05 Pulse 87 11/28/19 12:15 Respiratory Rate 16 11/28/19 13:05 Respiratory Effort 11/28/19 11:19 Blood Pressure 156/83 H 11/28/19 13:05 Blood Pressure Mean 98 11/28/19 12:15 Blood Pressure Position Supine 11/28/19 11:15 Pulse Oximetry 100 11/28/19 13:05 Oxygen Delivery Method Room Air 11/28/19 11:15 Oxygen Flow Rate 0 11/28/19 11:15 Pain Level 4 11/28/19 13:05 Lab/Test Results Lab/Test Results: Laboratory Tests Range/Units 11/28/19 11/28/19 11/28/19 11:25 11:25 11:25 WBC (4.4-10.8) 10^3/uL 8.98 RBC (3.93-5.22) 10^6/uL 4.20 Hgb (11.2-15.7) g/dL 12.9 Hct (36.0-46.0) % 38.2 MCV (80-95) fL 91.0 MCH (27.0-33.0) pg 30.7 MCHC (32.0-36.0) % 33.8 RDW (11.7-14.6) % 12.1 Plt Count (130-400) 10^3/uL 387 MPV (8.0-11.0) fL 9.1 Immature Gran % 0.3 Neutrophils % 74.7 Lymphocytes % 18.5 Monocytes % 4.8 Eosinophils % 0.9 Basophils % 0.8 Nucleated RBC % % 0 Absolute Neutrophils (1.2-6.7) 10^3/uL 6.71 H Absolute Lymphocytes (1.2-3.4) 10^3/uL 1.66 Absolute Monocytes (0.1-0.8) 10^3/uL 0.43 Absolute Eosinophils (0.0-0.7) 10^3/uL 0.08 Absolute Basophils (0.0-0.2) 10^3/uL 0.07 Sodium (136-145) mmol/L 135 L Potassium (3.5-5.1) mmol/L 4.1 Chloride (98-107) mmol/L 99 Carbon Dioxide (21.0-32.0) mmol/L 26.5 Anion Gap (3-11) mmol/L 9.5 BUN (7-18) mg/dL 14 Creatinine (0.55-1.02) mg/dL 1.28 H Estimated GFR/1.73 m2 (mL/min/1.73m2) 41.72 Glucose (74-106) mg/dL 142 H Calcium (8.5-10.1) mg/dL 9.8 Magnesium (1.8-2.4) mg/dL 1.8 Total Bilirubin (0.2-1.0) mg/dL 0.4 AST (15-37) U/L 11 L ALT (14-59) U/L 18 Alkaline Phosphatase (46-116) U/L 106 Total Protein (6.4-8.2) g/dL 7.7 Albumin (3.4-5.0) g/dL 4.0 TSH (0.36-3.74) uIU/mL 1.25
[2019-11-28] MEDS: Ondansetron 4 MG/2 ML VIAL IVP (13:30)
[2019-11-28] MEDS: DEXTROSE 5%-0.9% SALINE 1,000 ML 150 ML IV (13:45)
== END 2019-11-28 15:47 | disposition home or self-care (01) ==
PROVIDERS: Emergency Provider Student in an Organized Health Care Education/Training Program; PCP Nurse Practitioner Family
DX: E87.1 Hypo-osmolality and hyponatremia (principal); R11.0 Nausea; E86.1 Hypovolemia; R51.9 Headache, unspecified; D35.2 Benign neoplasm of pituitary gland; R53.1 Weakness
CPT/HCPCS: 36415; 80053; 93005; 96361; 96374; 96375; 99285; 70450; 83735; 84443; 85025; 93010; 99284; J0780; J2405; J7042

== ENCOUNTER 2020-01-23 19:21 | Outpatient (REF) | payer MEDICARE, MEDICAID, SELFPAY ==
[2020-01-23 19:20] LABS: Albumin 4.5 g/dL (3.4-5.0); Anion Gap 7.7 mmol/L (3-11); BUN 18 mg/dL (7-18); CO2 29.3 mmol/L (21.0-32.0); CREATININE 1.26 mg/dL (0.55-1.02); Calcium 9.8 mg/dL (8.5-10.1); Chloride 100 mmol/L (98-107); Estimated GFR 42.49 (mL/min/1.73m2); Glucose 105 mg/dL (74-106); Potassium 4.2 mmol/L (3.5-5.1); Sodium 137 mmol/L (136-145)
[2020-01-23 19:30] LABS: PHOSPHORUS 4.4 mg/dL (2.6-4.7)
[2020-01-23 20:12] LABS: Vitamin D 25 Total 22.6 ng/ml (30-100)
== END 2020-01-23 19:41 ==
LOC: NCHCN 19:21
PROVIDERS: PCP Nurse Practitioner Family; Visit Provider Nurse Practitioner Psychiatric/Mental Health
DX: N13.30 Unspecified hydronephrosis (principal); E55.9 Vitamin D deficiency, unspecified
CPT/HCPCS: 80051; 80069; 82306

== ENCOUNTER 2020-02-14 15:25 | Emergency (ER) | payer MEDICARE, MEDICAID, SELFPAY ==
[2020-02-14 15:42] VITALS: BP 133/91; PULSE 92; RESP 16; TEMP 36.7; O2SAT 97
--- NOTE | 2020-02-14 16:00 | RT.EKG_ITS ---
APPROVED REPORT Exam: Resting ECG Patient Location: E HR:71 bpm ECG Measurements Heart Rate 71 AXIS DC 175 P 58 QRSd 79 QRS 40 QT 357 T 52 QTc 385 Conclusion Sinus rhythm...normal P axis, V-rate 60- 99 Atrial premature complex...SV complex w/ short R-R interval Abnrm T, consider ischemia, anterolateral lds...T <-0.20mV, I aVL V2-V6 No STEMI. I have reviewed and interpreted ECG and agree with software generated interpretation.
--- NOTE | 2020-02-14 16:04 | ED.GENADUL_ITS ---
Discharge Plan Disposition Patient Disposition: HOME Condition: Good Discharge Details Clinical Impression: Nausea alone Primary Care Provider: Diane Mendez ED Provider: Alicia Weston Home Meds and New Rx's Prescriptions: New ondansetron 4 mg tablet,disintegrating 4 mg PO Q6H PRN (Reason: nausea and vomiting) Qty: 14 RF: 0 Continued sucralfate [Carafate] 1 gram tablet 1 gm PO .COMPLEX RF: 0 Benefiber Healthy Shape 5 gram/7.4 gram powder 5 gm PO DAILY RF: 0 Atorvastatin Calcium 20 MG tablet 20 mg PO HS RF: 0 olanzapine 10 MG tablet 10 mg PO HS RF: 0 clonazepam 0.5 MG tablet,disintegrating 1 mg PO BID RF: 0 omega-3 fatty acids-fish oil 1 EACH capsule 1 ea PO DAILY RF: 0 calcium carbonate-vitamin D3 [Calcium 500 + D] 1 EACH tablet 1 ea PO DAILY RF: 0 venlafaxine 225 MG tablet extended release 24hr 225 mg PO HS RF: 0 glucosam-chond yb-dguqwe-is ac 1 EACH capsule 1 ea PO DAILY RF: 0 Multi-Day Plus Minerals 1 EACH tablet 1 ea PO DAILY RF: 0 prochlorperazine maleate 10 mg tablet 10 mg PO PRN PRNRF: 0 cyclobenzaprine 10 MG tablet 10 mg PO TID PRN (Reason: Muscle Spasm) Qty: 8 RF: 0 melatonin 5 mg Tablet 5 mg PO HS PRNRF: 0 lisinopril 20 mg Tablet 20 mg PO DAILY RF: 0 promethazine 25 mg tablet 25 mg PO Q6H PRN (Reason: nausea and vomiting) Qty: 20 RF: 0 Discharge Instructions Instructions: Acute Nausea and Vomiting (ED) Additional Instructions: Encourage fluid intake. You may use the Zofran as prescribed if you have recurrence. Please call primary care tomorrow. Follow up in the next 1-2 weeks. You may want to discuss this further with your GI doctor as well. If you develop fevers/chills, inability to stay hydrated, abdominal pain or other new/worsening symptoms please seek care urgently once again. Referrals: Diane Mendez [Primary Care Provider] - Discharge Data Discharge Date/Time-TO BE ENTERED AT DEPARTURE: 02/14/20 17:44 Medical Decision Making Patient is a pleasant 64 year old female presenting today with c/c chronic nausea. She states that she has had intermittent nausea, worse in the morning, for the past year. Unclear what else may cause it to come on throughout the day. She states that she used her compazine as prescribed but did not have success with treatment. She presents today frustrated that this has persisted. She states no weight loss. She denies vomiting. No abdominal pain. No fevers/chills. No abdominal pain. She states she can have chest tightness but feels that this is more anxiety driven than anything else. States that this is only when she is at rest and never with exertion or when she is at work. On exam, she appears nontoxic. She is resting comfortably. She has a benign a bdomen, normal CV and respiratory exam. Plan for labs for evaluation of potential electrolyte abnormalities. Exam and history does not suggest an actue abdomen. No evidence of ischemic pathology, no evidence of appendicitis, cholecystitis, pancreatitis. No pulsatile mass to suggest AAA, good distal pulses. ECG reviewed by physician with no signficant ischemic pathology noted. Labs reviewed, CBC unremarkable. Creatinine elevated at 1.12, this is baseline for the patient. Troponin is <0.05. As patient is asympatomatic and has been having intermittent, nonexertional symptoms for w week, I do not feel that repeat troponin is necessary at this time. Patient is feeling much imrpoved after 4mg Zofran. Will continue with this as it has worked well for her. She was given return precautions. All of her questions and concerns were addressed, she is in agreement wit [facility]. [facility] General Mode of arrival: ambulatory . Date/Time Provider Initiated Documentation: 02/14/20 16:04 . Limitations to Documentation: no limitations . Information obtained by: patient, RN notes reviewed and old records reviewed . History of Present Illness 64 year old F presents to the emergency department with the chief complaint of Nausea, described as moderate and similar to prior episodes (Longstanding issues with nausea), with intensity rated at 1 (Denies any pain). and is localized to the abdomen. Patient reports no radiation. Patient started experiencing this year(s) and it has been intermittent. No relieving factors improve symptom(s), Other factors that worsen symptoms (Wor se in the morning) . Patient notes no other symptoms.. Patient did receive the following treatments prior to arrival, other (Compazine) Related Data Home Medications Medication Instructions Recorded Confirmed Atorvastatin Calcium 20 mg PO HS tab-cap 12/17/16 02/14/20 Multi-Day Plus Minerals 1 ea PO DAILY 12/17/16 11/28/19 calcium carbonate-vitamin D3 1 ea PO DAILY 12/17/16 02/14/20 [Calcium 500 + D] clonazepam 1 mg PO BID tab-cap 12/17/16 02/14/20 glucosam-chond ai-wsrrap-ax ac 1 ea PO DAILY 12/17/16 11/28/19 olanzapine 10 mg PO HS tab-cap 12/17/16 02/14/20 omega-3 fatty acids-fish oil 1 ea PO DAILY 12/17/16 11/28/19 venlafaxine 225 mg PO HS tab-cap 12/17/16 02/14/20 cyclobenzaprine 10 mg PO TID PRN #8 tab 02/19/17 02/14/20 sucralfate 1 gram tablet 1 gm PO .COMPLEX 01/04/19 02/14/20 wheat dextrin 5 gram/7.4 gram oral 5 gm PO DAILY 01/04/19 02/14/20 powder lisinopril 20 mg PO DAILY 04/02/19 02/14/20 melatonin 5 mg PO HS PRN 04/02/19 02/14/20 promethazine 25 mg PO Q6H PRN #20 tab 04/06/19 02/14/20 prochlorperazine maleate 10 mg PO PRN PRN 11/28/19 02/14/20 ondansetron 4 mg PO Q6H PRN #14 tab 02/14/20 Previous Rx's Medication Instructions Recorded cyclobenzaprine 10 mg PO TID PRN #8 tab 02/19/17 promethazine 25 mg PO Q6H PRN #20 tab 04/06/19 ondansetron 4 mg PO Q6H PRN #14 tab 02/14/20 Allergies Allergy/AdvReac Type Severity Reaction Status Date / Time trazodone AdvReac Mild WIRED Unverified 02/14/20 15:46 General Stated Complaint: Nausea/Vomit/Diar EBONY: 3 Review of Systems Constitutional Constitutional: Reports as per HPI, Denies chills, Denies fatigue, Denies fever(s) and Denies headache(s) ENT Ears, Nose, Mouth, and Throat: Denies headache(s) Cardiovascular Cardiovascular: Reports as per HPI, Denies chest pain and Denies dyspnea Respiratory Respiratory: Reports as per HPI, Denies cough and Denies dyspnea Gastrointestinal Gastrointestinal: Reports as per HPI Musculoskeletal Musculoskeletal: Reports as per HPI and Denies back pain Integumentary/Breasts Skin/Breast: Reports as per HPI and Denies rash Neurologic Neurologic: Reports as per HPI and Denies headache(s) Endocrine Endocrine: Denies fatigue [facility] Medical History (Updated 02/14/20 @ 17:35 by FANI Monahan) Anemia Anxiety Benign tumor of pituitary gland Chronic vomiting Depression GERD (gastroesophageal reflux disease) Grief reaction Hiatal hernia History of hepatitis History of HPV infection History of Lyme disease Hyperlipidemia Joint pain Low back pain Neck pain PTSD (post-traumatic stress disorder) Shortness of breath Surgical History EGD - MAC (01/13/17) Social History Smoking/Tobacco Use Status: Current every day Tobacco Type: cigarettes Smoking risk assessment performed?: Yes Alcohol Intake: current Alcohol Intake frequency: holidays/special occasions only Alcohol type: beer Drug use: Daily Substance use type: marijuana Do you feel safe at home: Yes Do you feel safe in your relationship?: Yes Exam Const General: cooperative, healthy appearing, comfortable, no acute distress and well developed Nutritional Appearance: average body habitus and well nourished Orientation: alert and awake HENNM Head: normal to inspection Mouth: moist mucous membranes Resp Effort & Inspection: normal respiratory effort, able to speak in complete sentences and no respiratory distress Auscultation: clear to auscultation bilaterally, no rales, no rhonchi and no wheezes Cardio Rate: regular rate Rhythm: regular rhythm Heart Sounds: S1 normal and S2 normal GI Inspection: normal to inspection, non-distended, no visible herniation and no visible pulsation Palpation: soft, no hepatosplenomegaly, not firm, no guarding, no masses, not rigid and nontender Percussion: normal to percussion Auscultation: normal bowel sounds Back/Spine/Pelvis Back: no CVA tenderness Skin General skin exam: no rashes or lesions noted Trauma: no lacerations or abrasions Neuro General: patient alert and patient awake Cognition: normal cognition Speech: speech normal Gait: normal gait Psych Appearance: grossly normal and well kempt Mental Status: mental status grossly normal Speech and Movement: speech and movement normal Course Vital Signs Vital signs: Vital Signs Temperature 36.7 C 02/14/20 15:42 Pulse 92 H 02/14/20 15:42 Respiratory Rate 16 02/14/20 15:42 Blood Pressure 133/91 H 02/14/20 15:42 Pulse Oximetry 97 02/14/20 15:42 Temperature 36.7 C 02/14/20 15:42 Temperature Source Skin 02/14/20 15:42 Pulse 92 H 02/14/20 15:42 Respiratory Rate 16 02/14/20 15:42 Respiratory Effort 02/14/20 15:46 Blood Pressure 133/91 H 02/14/20 15:42 Blood Pressure Position Sitting 02/14/20 15:42 Pulse Oximetry 97 02/14/20 15:42 Oxygen Delivery Method Room Air 02/14/20 15:42 Oxygen Flow Rate 0 02/14/20 15:42 Pain Level 0 02/14/20 15:42
[2020-02-14] MEDS: Normal Saline 1,000 ML 1000 ML IV (16:31)
[2020-02-14] MEDS: Ondansetron 4 MG/2 ML VIAL IVP (16:31)
[2020-02-14 16:43] LABS: Abs Immature Grans 0.04 10^3/uL (0.0-0.06); Absolute Basophil Count 0.03 10^3/uL (0.0-0.2); Absolute Eosinophil Count 0.21 10^3/uL (0.0-0.7); Absolute Lymphocyte Count 1.69 10^3/uL (1.2-3.4); Absolute Monocyte Count 0.52 10^3/uL (0.1-0.8); Absolute Neutrophil Count 6.38 10^3/uL (1.2-6.7); Basophils % 0.3; Eosinophils % 2.4; HCT 37.8 % (36.0-46.0); HGB 12.7 g/dL (11.2-15.7); Immature Grans % 0.5; Lymphocytes % 19.1; MCH 30.8 pg (27.0-33.0); MCHC 33.6 % (32.0-36.0); MCV 91.5 fL (80-95); MPV 9.1 fL (8.0-11.0); Monocytes % 5.9; Neutrophils % 71.8; Nucleated RBC 0 %; Platelet Count 311 10^3/uL (130-400); RBC 4.13 10^6/uL (3.93-5.22); RDW 12.6 % (11.7-14.6); WBC 8.87 10^3/uL (4.4-10.8)
[2020-02-14 16:58] LABS: ALT 20 U/L (14-59); AST 10 U/L (15-37); Albumin 3.7 g/dL (3.4-5.0); Alkaline Phosphatase 109 U/L (46-116); Anion Gap 6.2 mmol/L (3-11); BUN 10 mg/dL (7-18); Bilirubin, Total 0.3 mg/dL (0.2-1.0); CO2 27.8 mmol/L (21.0-32.0); CREATININE 1.12 mg/dL (0.55-1.02); Calcium 9.3 mg/dL (8.5-10.1); Chloride 103 mmol/L (98-107); Estimated GFR 48.67 (mL/min/1.73m2); Glucose 105 mg/dL (74-106); Magnesium 1.7 mg/dL (1.8-2.4); Potassium 3.9 mmol/L (3.5-5.1); Sodium 137 mmol/L (136-145); Troponin I < 0.05 ng/mL (<0.06)
[2020-02-14 17:16] VITALS: BP 139/76; PULSE 88; RESP 18; TEMP 36.6; O2SAT 98
[2020-02-14 17:21] LABS: Bilirubin Negative (Negative); Blood Negative (Negative); Clarity Clear (Clear); Glucose Negative (Negative); Ketones Negative (Negative); Leukocyte Esterase Negative (Negative); Nitrite Negative (Negative); Specific Gravity 1.015 (1.005-1.025); Urobilinogen 0.2 EU/dL (Up TO 0.2)
[2020-02-14 17:32] VITALS: BP 128/68; PULSE 96; RESP 20; TEMP 37.2; O2SAT 97
== END 2020-02-14 17:44 | disposition home or self-care (01) ==
PROVIDERS: Emergency Provider Physician Assistant; PCP Nurse Practitioner Family
DX: R11.0 Nausea (principal)
CPT/HCPCS: 36415; 80053; 93005; 96361; 96374; 99284; 81003; 83735; 84484; 85025; 93010; J2405

== ENCOUNTER 2020-03-27 01:18 | Outpatient (CLI) | payer MEDICARE, MEDICAID, SELFPAY ==
--- NOTE | 2020-03-27 13:21 | DI.MAMMO_ITS ---
EXAM: MG MAMMO SCREENING CLINICAL HISTORY: SCREENING, Z12.39 TECHNIQUE: Bilateral full field digital CC and MLO mammographic images were obtained with 3D tomosyn thesis and utilizing computer aided detection (CAD). COMPARISON: Available for comparison. FINDINGS: Masses/Architectural Distortion: None seen. Microcalcifications: No suspicious pleomorphic-type are seen. Skin Thickening/Nipple Retraction: None. IMPRESSION: 1. No significant interval change with no specific features of malignancy noted. 2. Unless there is more urgent need, screening mammography is recommended, as per [place] [employer] guidelines. BI-RADS Category 1 - Negative Breast Density - Category C - Heterogeneously dense Breast density category C or D implies that the patient has dense breast tissue. Dense breast tissue is very common and is not abnormal but dense breast tissue can make it harder to find cancer on a ma mmogram. Also, dense breast tissue may increase their breast cancer risk. This information about the result of the mammogram report was provided to the patient to raise their awareness. Use this report when you speak with the patient about their risks for breast cancer, which includes their family hist ory. At that time, you may recommend for more screening tests (Ultrasound or MRI) as they might be us eful based on their risk. A negative radiographic report should not delay biopsy if a dominant or clinically suspicious mass is present. Up to ten percent of cancers are not identified on mammography. A negative report may reinforce clinical impression. Adenosis and dense breasts may obscure an underlying neoplasm. False positive reports average 6 to 10%. Patient will receive a letter notifying them of these results.
== END 2020-03-27 01:19 ==
LOC: DI 01:18
PROVIDERS: PCP Nurse Practitioner Family; Visit Provider Nurse Practitioner Family
DX: Z12.31 Encounter for screening mammogram for malignant neoplasm of breast (principal)
CPT/HCPCS: 77063; 77067

== ENCOUNTER 2020-06-03 15:49 | Emergency (ER) | payer MEDICARE, MEDICAID, SELFPAY ==
[2020-06-03] VITALS (19 sets, daily range): BP systolic 131–194; BP diastolic 84–120; PULSE 79–125; RESP 11–30; TEMP 36.7; O2SAT 95–100
--- NOTE | 2020-06-03 16:16 | ED.GENADUL_ITS ---
Discharge Plan Disposition Patient Disposition: HOME Condition: Improving Discharge Details Clinical Impression: Constipation, Nausea & vomiting Primary Care Provider: Diane Mendez ED Provider: Velma Mann Home Meds and New Rx's Prescriptions: New promethazine 25 mg tablet 25 mg PO TID PRN (Reason: nausea and vomiting) Qty: 10 RF: 0 Continued sucralfate [Carafate] 1 gram tablet 1 gm PO .COMPLEX RF: 0 Atorvastatin Calcium 20 MG tablet 20 mg PO HS RF: 0 clonazepam 0.5 MG tablet,disintegrating 1 mg PO BID RF: 0 omega-3 fatty acids-fish oil 1 EACH capsule 1 ea PO DAILY RF: 0 calcium carbonate-vitamin D3 [Calcium 500 + D] 1 EACH tablet 1 ea PO DAILY RF: 0 Multi-Day Plus Minerals 1 EACH tablet 1 ea PO DAILY RF: 0 prochlorperazine maleate 10 mg tablet 10 mg PO PRN PRNRF: 0 ondansetron 4 mg tablet,disintegrating 4 mg PO Q6H PRN (Reason: nausea and vomiting) Qty: 14 RF: 0 cyclobenzaprine 10 MG tablet 10 mg PO TID PRN (Reason: Muscle Spasm) Qty: 8 RF: 0 melatonin 5 mg Tablet 5 mg PO HS PRNRF: 0 lisinopril 20 mg Tablet 20 mg PO DAILY RF: 0 No Action Benefiber Healthy Shape 5 gram/7.4 gram powder 5 gm PO DAILY RF: 0 olanzapine 10 MG tablet 10 mg PO HS RF: 0 venlafaxine 225 MG tablet extended release 24hr 225 mg PO HS RF: 0 glucosam-chond iu-lgtpto-or ac 1 EACH capsule 1 ea PO DAILY RF: 0 promethazine 25 mg tablet 25 mg PO Q6H PRN (Reason: nausea and vomiting) Qty: 20 RF: 0 Discharge Instructions Instructions: Constipation (ED) Additional Instructions: Drink half the magnesium citrate here in department and happening at home should produce a bowel movement within the next 12 to 24 hours. Continue taking MiraLAX daily as discussed. You also may continue to take the clonazepam that you are previously prescribed. Follow up with primary care provider in 3-5 days. Return to ED sooner if any worsening or concerns. Increase oral fluids. Referrals: Diane Mendez [Primary Care Provider] - 5 days Medical Decision Making 64-year-old female presents the ER chief complaint lower bilateral abdominal pain, nausea vomiting and constipation x1 week. She also reports fever T-max 101. She does have a history of chronic nausea vomiting, she also had her first Covid vaccination on pupils. She reports trying to take her nausea medications prior to arrival with little to no relief which include Zofran Phenergan and Compazine. She denies any chest pain. She also does endorse some shortness of breath which began on Thursday. Denies any productive cough. She does have a past medical history of hiatal hernia, hepatitis, GERD, depression, chronic vomiting, anxiety, iron deficiency anemia. She does report she has had a esophageal dilation in the past for the nausea vomiting. She also describes a possible gastric motility diagnosis. At this time labs ordered including BMP, lipase, urinalysis 1 L normal saline 25 mg Phenergan IV piggyback at 20 mg of famotidine ordered. Differential diagnosis includes but not limited to exacerbation of chronic nausea vomiting, small bowel obstruction, kidney stone, cholecystitis, Covid, gastroenteritis. CBC shows white blood cell count 11.63, neutrophils 9.85 sodium 141, potassium 3.8 BUN is 12 creatinine 1.2 GFR is 44.[address] change to without contrast due to patient's GFR. Urinalysis is negative for UTI no leukocytes no nitrites. Patient was given 1 mg of lorazepam IV which improved her symptoms. Patient is returned from diagnostic imaging, blood pressure is much improved at this time is 131/85 heart rate is 78 O2 sat is 97%. COMPARISON: CT CHEST/ABD W 06/07/2018 9:50 AM FINDINGS: Lungs: Subpleural scarring in lung apices. Several tiny pulmonary nodules on the in the lower lobe measuring 4 mm or less, stable since 06/07/2018.. Pleural spaces: Unremarkable. No pneumothorax. No pleural effusion. Heart: Tiny pericardial effusion. Mediastinal space: Small esophageal hiatal hernia with postoperative changes of the gastroesophageal junction.. Aorta: Unremarkable. No aortic aneurysm. Lymph nodes: Unremarkable. No enlarged lymph nodes. Bones/joints: Mild degenerative arthritis in the spine. Soft tissues: Unremarkable. IMPRESSION: 1. No acute findings in the chest. 2. Postoperative changes of the gastroesophageal junction with a small esophageal hiatal hernia 3. Stable small pulmonary nodules. Exam: CT Abdomen And Pelvis Without Contrast Exam date and time: 06/03/2020 4:54 PM Age: 64 years old Clinical indication: Other: SOB, abd pain, nausea/vomiting, R/O sbo COMPARISON: CT CHEST/ABD W 06/07/2018 9:50 AM FINDINGS: Liver: Normal. No mass. Gallbladder and bile ducts: Normal. No calcified stones. No ductal dilation. Pancreas: Normal. No ductal dilation. Spleen: Normal. No splenomegaly. Adrenal glands: Normal. No mass. Kidneys and ureters: Atrophic left kidney new since 06/07/2018. Left perinephric soft tissue stranding. Stomach and bowel: Large amount of stool in the colon. Appendix: No evidence of appendicitis. Intraperitoneal space: Unremarkable. No free air. No significant fluid colle ction. Vasculature: Unremarkable. No abdominal aortic aneurysm. Lymph nodes: Unremarkable. No enlarged lymph nodes. Urinary bladder: Diffuse thickening of the wall of the urinary bladder could be due to cystitis or neoplasia. Reproductive: Unremarkable as visualized. Bones/joints: Degenerative arthritis in the spine. Soft tissues: Small paraumbilical abdominal wall hernia containing fat. IMPRESSION: 1. Atrophic left kidney is new compared with 06/07/2018 with associated perinephric soft tissue stranding. No urinary stones are identified and no evidence of obstruction 2. Constipation 3. Diffuse thickening of the wall of the urinary bladder could be due to inflammation or neoplasia. CT results are noted above discuss with patient who verbalized understanding. Soapsuds enema ordered and will send a send out Covid test due to reports of fever last week. Patient is much more comfortable appearing at this time. Soapsuds enema was unsuccessful. Mag citrate ordered half now half at home. Patient began somewhat nauseated after magnesium citrate 8 mg Zofran IV ordered. Patient feeling better prior to discharge. Patient discharged with ride. Discussed follow-up care and strict return instructions, verbalized understanding. HPI General Mode of arrival: wheelchair . Date/Time Provider Initiated Documentation: 06/03/20 16:03 . Limitations to Documentation: no limitations . Information obtained by: patient . HPI Narrative: 64-year-old female presents the ER chief complaint lower bilateral abdominal pain, nausea vomiting and constipation x1 week. She also reports fever T-max 101. She does have a history of chronic nausea vomiting, she also had her first Covid vaccination on pupils. She reports trying to take her nausea medications prior to arrival with little to no relief which include Zofran Phenergan and Compazine. She denies any chest pain. She also does endorse some shortness of breath which began on Thursday. Denies any productive cough. She does have a past medical history of hiatal hernia, hepatitis, GERD, depression, chronic vomiting, anxiety, iron deficiency anemia. She does report she has had a esophageal dilation in the past for the nausea vomiting. She also describes a possible gastric motility diagnosis. Related Data Home Medications Medication Instructions Recorded Confirmed Atorvastatin Calcium 20 mg PO HS tab-cap 12/17/16 06/03/20 Multi-Day Plus Minerals 1 ea PO DAILY 12/17/16 06/03/20 calcium carbonate-vitamin D3 1 ea PO DAILY 12/17/16 06/03/20 [Calcium 500 + D] clonazepam 1 mg PO BID tab-cap 12/17/16 06/03/20 glucosam-chond [id number]-[id number] ac 1 ea PO DAILY 12/17/16 06/03/20 olanzapine 10 mg PO HS tab-cap 12/17/16 06/03/20 omega-3 fatty acids-fish oil 1 ea PO DAILY 12/17/16 06/03/20 venlafaxine 225 mg PO HS tab-cap 12/17/16 06/03/20 cyclobenzaprine 10 mg PO TID PRN #8 tab 02/19/17 06/03/20 sucralfate 1 gram tablet 1 gm PO .COMPLEX 01/04/19 06/03/20 wheat dextrin 5 gram/7.4 gram oral 5 gm PO DAILY 01/04/19 06/03/20 powder lisinopril 20 mg PO DAILY 04/02/19 06/03/20 melatonin 5 mg PO HS PRN 04/02/19 06/03/20 promethazine 25 mg PO Q6H PRN #20 tab 04/06/19 06/03/20 prochlorperazine maleate 10 mg PO PRN PRN 11/28/19 06/03/20 ondansetron 4 mg PO Q6H PRN #14 tab 02/14/20 06/03/20 promethazine 25 mg PO TID PRN #10 tab 06/03/20 Previous Rx's Medication Instructions Recorded cyclobenzaprine 10 mg PO TID PRN #8 tab 02/19/17 promethazine 25 mg PO Q6H PRN #20 tab 04/06/19 ondansetron 4 mg PO Q6H PRN #14 tab 02/14/20 promethazine 25 mg PO TID PRN #10 tab 06/03/20 Allergies Allergy/AdvReac Type Severity Reaction Status Date / Time trazodone AdvReac Mild WIRED Unverified 06/03/20 16:05 General Stated Complaint: Abd Prob EBONY: 2 Review of Systems Narrative: Constitutional: Negative for weight loss, alert and oriented, well groomed, normal body habitus, appears uncomfortable. Reports fever T-max 101 1 week ago. Afebrile upon arrival. HEENT: Denies trauma, headaches, blurry vision, nasal discharge, sore throat, trouble swallowing. Chest: Denies chest pain, palpitations, irregular rhythm, hypertension. Respiratory: Denies , hemoptysis. Positive shortness of breath nonproductive cough. GI: Denies diarrhea, positive lower bilateral abdominal pain, nausea, vomiting x1 week, constipation. : Denies dysuria, hematuria, flank pain, rectal bleeding. Neuro: Denies dizziness, blurry vision, weakness, syncope, headache or facial numbness. Hematologic: Denies easy bruising, intolerance to heat or cold, hair loss. [facility] Medical History (Updated 06/03/20 @ 17:59 by Velma Mann) Anemia Anxiety Benign tumor of pituitary gland Chronic vomiting Depression GERD (gastroesophageal reflux disease) Grief reaction Hiatal hernia History of hepatitis History of HPV infection History of Lyme disease Hyperlipidemia Joint pain Low back pain Neck pain PTSD (post-traumatic stress disorder) Shortness of breath Surgical History EGD - MAC (01/13/17) Social History Smoking/Tobacco Use Status: Current every day Tobacco Type: cigarettes Smoking risk assessment performed?: Yes Alcohol Intake: current Alcohol Intake frequency: holidays/special occasions only Alcohol type: beer Drug use: Occasionally Substance use type: marijuana Do you feel safe at home: Yes Do you feel safe in your relationship?: Yes Exam Narrative Exam Narrative: Constitutional: Alert and oriented x3. Appears stated age. Normal body habitus. Head: Normocephalic, no trauma. Eyes: Pupils PERRLA, Red reflex noted, EOM's intact. Eyelids symmetrical without lesions, discharge, or swelling. ENT: Bilateral TM's WNL, External ear normal to inspection, no mastoid TTP, swelling, or erythema, Nasal turbinates WNL, no nasal discharge. Normal dentition, mucous membranes, posterior pharynx WNL, no exudate. Chest: RRR, Normal S1, S2, distal pulses intact. She is hypertensive upon arrival. Resp: Lungs clear to auscultation bilaterally, no wheezes, rales, or rhonchi. Abdomen: Diminished bowel sounds, soft no pinpoint pain elicited with palpation. She does have some generalized lower abdominal tenderness. No CVA tenderness. Musculoskeletal: 5/5 strength to all four extremities. Skin: No suspicious rashes or lesions. Capillary refill less than 2 sec. Neurologic: Cranial nerves II-XII intact. Alert and oriented x 3. DTR's intact. Hematologic/Lymphatic: No ecchymosis, no lymphadenopathy. Course Vital Signs Vital signs: Vital Signs Temperature 36.7 C 06/03/20 16:01 Pulse 98 H 06/03/20 16:01 Respiratory Rate 27 H 06/03/20 16:01 Blood Pressure 194/120 H 06/03/20 16:01 Pulse Oximetry 98 06/03/20 16:01 Temperature 36.7 C 06/03/20 16:01 Temperature Source Temporal Artery Scan 06/03/20 16:01 Pulse 98 H 06/03/20 16:01 Respiratory Rate 27 H 06/03/20 16:01 Blood Pressure 194/120 H 06/03/20 16:01 Blood Pressure Position Supine 06/03/20 16:01 Pulse Oximetry 98 06/03/20 16:01 Oxygen Delivery Method Room Air 06/03/20 16:01 Oxygen Flow Rate 0 06/03/20 16:01 Pain Level 7 06/03/20 16:01
[2020-06-03] MEDS: Normal Saline 1,000 ML 1000 ML IV (16:20)
[2020-06-03 16:27] LABS: Abs Immature Grans 0.06 10^3/uL (0.0-0.06); Absolute Basophil Count 0.03 10^3/uL (0.0-0.2); Absolute Eosinophil Count 0.05 10^3/uL (0.0-0.7); Absolute Lymphocyte Count 1.24 10^3/uL (1.2-3.4); Absolute Neutrophil Count 9.85 10^3/uL (1.2-6.7); Basophils % 0.3; Eosinophils % 0.4; HCT 37.4 % (36.0-46.0); HGB 12.3 g/dL (11.2-15.7); Immature Grans % 0.5; Lymphocytes % 10.7; MCH 30.4 pg (27.0-33.0); MCHC 32.9 % (32.0-36.0); MCV 92.3 fL (80-95); MPV 9.1 fL (8.0-11.0); Monocytes % 3.4; Neutrophils % 84.7; Nucleated RBC 0 %; Platelet Count 278 10^3/uL (130-400); RBC 4.05 10^6/uL (3.93-5.22); RDW 12.2 % (11.7-14.6); RDW-SD 41.5 fL; WBC 11.63 10^3/uL (4.4-10.8)
[2020-06-03] MEDS: FAMOTIDINE 20 MG/50 ML BAG 100 MG IVPB (16:29)
[2020-06-03 16:39] LABS: ALT 22 U/L (14-59); AST 14 U/L (15-37); Albumin 3.9 g/dL (3.4-5.0); Alkaline Phosphatase 116 U/L (46-116); Anion Gap 10.5 mmol/L (3-11); BUN 12 mg/dL (7-18); Bilirubin, Total 0.3 mg/dL (0.2-1.0); CO2 26.5 mmol/L (21.0-32.0); CREATININE 1.2 mg/dL (0.55-1.02); Calcium 9.3 mg/dL (8.5-10.1); Chloride 104 mmol/L (98-107); Estimated GFR 44.95 (mL/min/1.73m2); Glucose 129 mg/dL (74-106); Lipase 91 U/L (73-393); Magnesium 1.8 mg/dL (1.8-2.4); Potassium 3.8 mmol/L (3.5-5.1); Sodium 141 mmol/L (136-145); Total Protein 7.2 g/dL (6.4-8.2)
[2020-06-03] MEDS: LORazepam 2 MG/ML VIAL 1 MG IVP (16:45)
--- NOTE | 2020-06-03 16:45 | DI.CT_ITS ---
EXAM: CT CHEST/ABD/PEL WO CLINICAL HISTORY: SOB, Abdominal pain, Nausea vomiting, R/O SBO. TECHNIQUE: Imaging Protocol: Axial computed tomography images with coronal and sagittal reformatted images were created and reviewed CONTRAST MATERIAL: Intravenous: none Oral: None COMPARISON: CT CT ABDOMEN PELVIS WO from 04/02/2019 FINDINGS: CHEST: LUNGS: There are no confluent pulmonary infiltrates nor pleural effusions. There is a noncalcified 4 millimeter nodule in the left lower lobe which is located few millimeters in from the pleural surfac e. Below this level there is an unchanged 3 millimeters subpleural noncalcified nodular density in t he lateral basal segment of the left lower lobe. There are no significant focal findings in trachea and mainstem bronchi. MEDIASTINUM: No obvious hilar nor mediastinal adenopathy. There is no axillary adenopathy. CARDIAC: Heart size is normal. There is a trace amount of increased pericardial fluid, not evident 1 year ago. There is no large pericardial effusion..Caliber thoracic aorta is upper normal. Radiopaq ue densities are again noted just to the right of the lower esophagus and there is a moderate size hi atal hernia again noted. Also densities at the GE junction. Possible previous surgery at this level . OSSEOUS: No significant osseous lesions.. ABDOMEN: There is no ascites. There is a metallic density in the stomach measuring 4 millimeters. Consistent with swallowed foreign material, possibly dental. LIVER: There are no obvious focal hepatic lesions evident of this noninfused study. GALLBLADDER/BILIARY: No obvious gallbladder pathology. CBD is not dilated. PANCREAS: No evidence of obvious pancreatic mass nor dilatation of the pancreatic duct. SPLEEN: Spleen is not enlarged. No obvious intrasplenic lesions. ADRENALS: There are no significant adrenal masses. KIDNEYS: Right kidney appears unremarkable.. The left kidney is now atrophic. This kidney was previ ously hydronephrotic. There is some mild perinephric streaking around the left kidney. No intrarena l calculi. No true fluid collection. No cysts obvious cyst or mass in the left kidney. Left ureter is not dilated. There is mild increased soft tissue density in the left ureter at the ureterovesica l junction (series 2/image 103). Mild thickening of the urinary bladder wall is noted. ABDOMINAL AORTA: Abdominal aorta is not enlarged. LYMPH NODES: There is no retroperitoneal nor para-aortic adenopathy. ABDOMINAL WALL/GI: There is a fat containing anterior abdominal wall umbilical hernia which appears u nchanged. There is no bowel obstruction. Appendix appears unremarkable. PELVIS: LYMPH NODES: There is no intrapelvic nor inguinal adenopathy. GI: No evidence of appendicitis.No evidence of sigmoid diverticulitis. URINARY BLADDER: Bladder wall thickening. REPRODUCTIVE: Uterus contains calcified uterine fibroids. No abnormal adnexal masses. No free fluid in the pelvis. 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 This is unchanged from March 2019. IMPRESSION: 1. Compared to the prior CT scan of March 2019 left kidney is no longer hydronephrotic but is now atrophic. There are no radiopaque calculi in left collecting system. However, there is some bladder wall thickening and possible soft tissue thickening in the lower most left ureter. Urology consulta tion is recommended. The opposite-right kidney appears unremarkable. 2. There is a 4-5 millimeter metallic density foreign body noted in the stomach. Probably swallowed foreign body material, possibly dental amalgam. 3. Postoperative changes at the GE junction with small-moderate size hiatal hernia again noted. 4. Unchanged fat containing umbilical hernia. Does not contain bowel loops. There is no bowel obst ruction. Of view. Recommend repeat CT scan 6 months. 6. Small left lower lobe pulmonary nodules, 1 of which was included in the field of view of the abdo men CT scan 1 year ago and appears unchanged. The other is higher than the Study 1st read by [facility]. Fine report called by myself to the emergency room Thursday06/03/2020 7:15 p.m.. RADIATION DOSE DELIVERED: 1,055.13mGy.cm Total DLP DATA REPOSITORY: All CT scans at this facility are submitted to the National Radiology Data Registry (NRDR) Dose Index Registry (DIR) with the [employer] (A[employer]). RADIATION OPTIMIZATION: All CT scans at this facility use at least one of these dose optimization te chniques: automated exposure control; mA and/or kV adjustment per patient size (includes targeted exa ms where dose is matched to clinical indication); or iterative reconstruction.
[2020-06-03 16:58] LABS: Bilirubin Negative (Negative); Blood Negative (Negative); Clarity Clear (Clear); Glucose Negative (Negative); Ketones Negative (Negative); Leukocyte Esterase Negative (Negative); Nitrite Negative (Negative); Urobilinogen 0.2 EU/dL (Up TO 0.2)
--- NOTE | 2020-06-03 17:48 | DI.VRAD_ITS ---
PROCEDURE INFORMATION: Exam: CT Chest Without Contrast; Diagnostic Exam date and time: 06/03/2020 4:54 PM Age: 64 years old Clinical indication: Other: SOB, abd pain, nausea/vomiting, R/O sbo TECHNIQUE: Imaging protocol: Diagnostic computed tomography of the chest without contrast. Radiation optimization: All CT scans at this facility use at least one of these dose optimization techniques: automated exposure control; mA and/or kV adjustment per patient size (includes targeted exams where dose is matched to clinical indication); or iterative reconstruction. COMPARISON: CT CHEST/ABD W 06/07/2018 9:50 AM FINDINGS: Lungs: Subpleural scarring in lung apices. Several tiny pulmonary nodules on the in the lower lobe measuring 4 mm or less, stable since 06/07/2018.. Pleural spaces: Unremarkable. No pneumothorax. No pleural effusion. Heart: Tiny pericardial effusion. Mediastinal space: Small esophageal hiatal hernia with postoperative changes of the gastroesophageal junction.. Aorta: Unremarkable. No aortic aneurysm. Lymph nodes: Unremarkable. No enlarged lymph nodes. Bones/joints: Mild degenerative arthritis in the spine. Soft tissues: Unremarkable. IMPRESSION: 1. No acute findings in the chest. 2. Postoperative changes of the gastroesophageal junction with a small esophageal hiatal hernia 3. Stable small pulmonary nodules. PROCEDURE INFORMATION: Exam: CT Abdomen And Pelvis Without Contrast Exam date and time: 06/03/2020 4:54 PM Age: 64 years old Clinical indication: Other: SOB, abd pain, nausea/vomiting, R/O sbo TECHNIQUE: Imaging protocol: Computed tomography of the abdomen and pelvis without contrast. Radiation optimization: All CT scans at this facility use at least one of these dose optimization techniques: automated exposure control; mA and/or kV adjustment per patient size (includes targeted exams where dose is matched to clinical indication); or iterative reconstruction. COMPARISON: CT CHEST/ABD W 06/07/2018 9:50 AM FINDINGS: Liver: Normal. No mass. Gallbladder and bile ducts: Normal. No calcified stones. No ductal dilation. Pancreas: Normal. No ductal dilation. Spleen: Normal. No splenomegaly. Adrenal glands: Normal. No mass. Kidneys and ureters: Atrophic left kidney new since 06/07/2018. Left perinephric soft tissue stranding. Stomach and bowel: Large amount of stool in the colon. Appendix: No evidence of appendicitis. Intraperitoneal space: Unremarkable. No free air. No significant fluid collection. Vasculature: Unremarkable. No abdominal aortic aneurysm. Lymph nodes: Unremarkable. No enlarged lymph nodes. Urinary bladder: Diffuse thickening of the wall of the urinary bladder could be due to cystitis or neoplasia. Reproductive: Unremarkable as visualized. Bones/joints: Degenerative arthritis in the spine. Soft tissues: Small paraumbilical abdominal wall hernia containing fat. IMPRESSION: 1. Atrophic left kidney is new compared with 06/07/2018 with associated perinephric soft tissue stranding. No urinary stones are identified and no evidence of obstruction 2. Constipation 3. Diffuse thickening of the wall of the urinary bladder could be due to inflammation or neoplasia. Dictated and Authenticated by: Maria Teresa Saavedra MD. Ordering:MARIO Carreon MD
[2020-06-03] MEDS: Magnesium Citrate 300 ML BTL 150 ML PO (18:38)
--- NOTE | 2020-06-03 19:18 | NUR.NOTE ---
Pt yelling out in room, found sitting on floor next to bed, states she fell out of bed i was trying to reach my clothes and went to far. Denies head strike. Denies injury. Call bone was attached to bed and in reach of pt, states she did not think to use. Pt assisted back to bed. FAITH Carreon aware.
[2020-06-03] MEDS: Ondansetron 4 MG/2 ML VIAL 8 MG IVP (20:02)
[2020-06-05 18:07] LABS: COVID-19 RT-PCR UVMMC Result Negative (Negative)
== END 2020-06-03 20:35 | disposition home or self-care (01) ==
PROVIDERS: Emergency Provider Registered Nurse Emergency; PCP Nurse Practitioner Family
DX: R11.2 Nausea with vomiting, unspecified (principal); K59.00 Constipation, unspecified
CPT/HCPCS: 36415; 71250; 80053; 83690; 96361; 96365; 96375; 99285; U0003; 74176; 81003; 83735; 85025; 99284; J2060; J2405

== ENCOUNTER 2020-06-19 01:59 | Outpatient (CLI) | payer MEDICARE, MEDICAID, SELFPAY ==
[2020-06-19 10:48] LABS: Source Nasal/Nares
[2020-06-19 12:50] LABS: COVID-19 PCR Negative (Negative)
== END 2020-06-19 02:00 | disposition home or self-care (01) ==
LOC: LBO 02:00
PROVIDERS: PCP Nurse Practitioner Family; Visit Provider Nurse Practitioner
DX: Z20.822 Contact with and (suspected) exposure to COVID-19 (principal); Z01.818 Encounter for other preprocedural examination
CPT/HCPCS: 87635

== ENCOUNTER 2020-07-27 16:04 | Outpatient (REF) | payer MEDICARE, MEDICAID, SELFPAY ==
[2020-07-27 16:03] LABS: Ferritin 20 ng/mL (8-252)
== END 2020-07-27 16:05 | disposition home or self-care (01) ==
LOC: LBN 16:04
PROVIDERS: PCP Nurse Practitioner Family; Visit Provider Nurse Practitioner
DX: M25.551 Pain in right hip (principal)
CPT/HCPCS: 82728

== ENCOUNTER 2020-09-02 16:52 | Emergency (ER) | payer MEDICARE, MEDICAID, SELFPAY ==
[2020-09-02 16:55] VITALS: BP 97/58; PULSE 83; RESP 16; TEMP 36.6; O2SAT 96
--- NOTE | 2020-09-02 17:00 | RT.EKG_ITS ---
APPROVED REPORT Exam: Resting ECG Reason for Exam: vomiting hypotension Patient Location: E HR:78 bpm ECG Measurements Heart Rate 78 AXIS SC 177 P 69 QRSd 89 QRS 61 QT 352 T 31 QTc 402 Conclusion Sinus rhythm...normal P axis, V-rate 60- 99. No STEMI. I have reviewed and interpreted ECG and agree with software generated interpretation.
--- NOTE | 2020-09-02 17:27 | W.ED.GENAD ---
Discharge Plan Disposition Patient Disposition: HOME Condition: Improving Discharge Details Clinical Impression: Abdominal pain, vomiting, and diarrhea Primary Care Provider: Diane Mendez ED Provider: Luba Lorenzo Home Meds and New Rx's Prescriptions: New sucralfate [Carafate] 1 gram tablet 1 gm PO QACHS Qty: 14 RF: 0 Continued sucralfate [Carafate] 1 gram tablet 1 gm PO .COMPLEX RF: 0 Atorvastatin Calcium 20 MG tablet 20 mg PO HS RF: 0 olanzapine 10 MG tablet 10 mg PO HS RF: 0 clonazepam 0.5 MG tablet,disintegrating 1 mg PO BID RF: 0 omega-3 fatty acids-fish oil 1 EACH capsule 1 ea PO DAILY RF: 0 calcium carbonate-vitamin D3 [Calcium 500 + D] 1 EACH tablet 1 ea PO DAILY RF: 0 glucosam-chond wn-tmatbc-tn ac 1 EACH capsule 1 ea PO DAILY RF: 0 Multi-Day Plus Minerals 1 EACH tablet 1 ea PO DAILY RF: 0 ondansetron 4 mg tablet,disintegrating 4 mg PO Q6H PRN (Reason: nausea and vomiting) Qty: 14 RF: 0 cyclobenzaprine 10 MG tablet 10 mg PO TID PRN (Reason: Muscle Spasm) Qty: 8 RF: 0 melatonin 5 mg Tablet 5 mg PO HS PRNRF: 0 lisinopril 20 mg Tablet 20 mg PO DAILY RF: 0 promethazine 25 mg tablet 25 mg PO TID PRN (Reason: nausea and vomiting) Qty: 10 RF: 0 venlafaxine [Effexor XR] 37.5 mg capsule,extended release 24hr 105 mg PO HS RF: 0 pantoprazole 40 mg tablet,delayed release (DR/EC) 40 mg PO DAILY RF: 0 Discharge Instructions Instructions: Acute Nausea and Vomiting (ED), Acute Diarrhea (ED), Abdominal Pain (ED) Additional Instructions: Drink plenty of fluids and get plenty of rest. Take your regular medications daily as directed. Continue taking your Protonix and Carafate as directed. Your prescription has been sent electronically to your pharmacy. Call the pharmacy to make sure your prescription is ready before pickup. Take the prescription as directed. Call the general surgery office this week to schedule a follow-up appointment for reevaluation and for referral for possible upper and/or lower endoscopy. Return immediately to the emergency department if you develop any worsening or new concerning symptoms. Referrals: Irma Wells, [OSTEOPATHIC DOCTOR] - Discharge Data Discharge Date/Time-TO BE ENTERED AT DEPARTURE: 09/02/20 20:27 Discharge Physician: Luba Lorenzo Medical Decision Making 64-year-old female with a history of GERD, hiatal hernia, anxiety, hyperlipidemia who presents to the ED with a complaint of vomiting, diarrhea and abdominal pain for the past 2 days. She was given Zofran and fluids per EMS and feels better. Blood pressure 97/58. She is afebrile and appears nontoxic. Her abdomen is soft with minimal diffuse tenderness. No rebound or guarding. Differential diagnosis includes GERD, PUD, gastritis, gastroenteritis, UTI, bowel obstruction, appendicitis, colitis, cholecystitis. Will place an IV, bolus IV fluids, screening labs, urinalysis, CT abdomen pelvis and give IV Tylenol and reassess. Labs and imaging reviewed. Normal white blood cell count. Normal electrolytes. Serum normal lipase. Urinalysis negative for infection. CT negative for acute findings. Patient reassessed and she feels much better. She states she ran out of her Protonix recently. She feels good to go home. We will give a dose of Carafate and Protonix p.o. Patient placed on surgery follow-up list for reevaluation for consideration for upper and/or lower endoscopy. Usual and customary return precautions given prior to discharge. Medical Records Medical records reviewed: Yes I reviewed the patient's medical records. Imaging Data Radiologic Study: Radiologist's impression: CT Abdomen And Pelvis With Contrast Exam date and time: 09/02/2020 5:33 PM Age: 64 years old Clinical indication: Vomiting and other: Diarrhea; Abdominal pain; Generalized; Patient HX: Diffuse abd pain, vomiting, diarrhea. R/O appy, cholecystitis, sbo, colitis TECHNIQUE: Imaging protocol: Computed tomography of the abdomen and pelvis with contrast. Total images: 1135 Radiation optimization: All CT scans at this facility use at least one of these dose optimization techniques: automated exposure control; mA and/or kV adjustment per patient size (includes targeted exams where dose is matched to clinical indication); or iterative reconstruction. Contrast material: OMNIPAQUE 350; Contrast volume: 100 ml; Contrast route: INTRAVENOUS (IV); COMPARISON: CT CHEST/ABD/PEL WO 06/03/2020 5:05 PM FINDINGS: Liver: Normal. No mass. Gallbladder and bile ducts: Normal. No calcified stones. No ductal dilation. Pancreas: Normal. No ductal dilation. Spleen: Normal. No splenomegaly. Adrenal glands: Normal. No mass. Kidneys and ureters: The left kidney is small with cortical thinning. The right kidney is unremarkable. Stomach and bowel: Unremarkable. No obstruction. No mucosal thickening. Appendix: The appendix is normal (series 4, image 69). Intraperitoneal space: Unremarkable. No free air. No significant fluid collection. Vasculature: Unremarkable. No abdominal aortic aneurysm. Lymph nodes: Unremarkable. No enlarged lymph nodes. Urinary bladder: Unremarkable as visualized. Reproductive: Unremarkable as visualized. Bones/joints: Unremarkable. No acute fracture. Soft tissues: Unremarkable. IMPRESSION: No acute disease in abdomen or pelvis. Lab Data Lab results reviewed: Yes I reviewed the patient's lab results. Labs: Laboratory Tests Range/Units 09/02/20 09/02/20 09/02/20 17:15 17:15 17:15 WBC (4.4-10.8) 10^3/uL 9.22 RBC (3.93-5.22) 10^6/uL 3.76 L Hgb (11.2-15.7) g/dL 11.6 Hct (36.0-46.0) % 35.1 L MCV (80-95) fL 93.4 MCH (27.0-33.0) pg 30.9 MCHC (32.0-36.0) % 33.0 RDW (11.7-14.6) % 13.3 Plt Count (130-400) 10^3/uL 285 MPV (8.0-11.0) fL 9.4 Immature Gran % 0.3 Neutrophils % 75.2 Lymphocytes % 17.2 Monocytes % 6.7 Eosinophils % 0.2 Basophils % 0.4 Nucleated RBC % % 0 Absolute Neutrophils (1.2-6.7) 10^3/uL 6.92 H Absolute Lymphocytes (1.2-3.4) 10^3/uL 1.59 Absolute Monocytes (0.1-0.8) 10^3/uL 0.62 Absolute Eosinophils (0.0-0.7) 10^3/uL 0.02 Absolute Basophils (0.0-0.2) 10^3/uL 0.04 Sodium (136-145) mmol/L 140 Potassium (3.5-5.1) mmol/L 4.0 Chloride (98-107) mmol/L 107 Carbon Dioxide (21.0-32.0) mmol/L 26.3 Anion Gap (3-11) mmol/L 6.7 BUN (7-18) mg/dL 17 Creatinine (0.55-1.02) mg/dL 1.1 H Estimated GFR/1.73 m2 (mL/min/1.73m2) 49.69 Glucose (74-106) mg/dL 125 H Calcium (8.5-10.1) mg/dL 8.7 Total Bilirubin (0.2-1.0) mg/dL 0.5 AST (15-37) U/L 15 ALT (14-59) U/L 21 Alkaline Phosphatase (46-116) U/L 95 Total Protein (6.4-8.2) g/dL 6.6 Albumin (3.4-5.0) g/dL 3.6 Lipase (73-393) U/L 84 Urine Color (Yellow) Urine Clarity (Clear) Urine pH (5-8) Ur Specific Frederick (1.005-1.025) Urine Protein (Negative) mg/dL Urine Ketones (Negative) mg/dL Urine Blood (Negative) Urine Nitrite (Negative) Urine Bilirubin (Negative) Urine Urobilinogen (Up TO 0.2) EU/dL Ur Leukocyte Esterase (Negative) Urine RBC (0-2) HPF Urine WBC (0-5) HPF Ur Epithelial Cells (Negative) HPF Urine Crystals (Negative) HPF Urine Bacteria (Negative) HPF Urine Casts (Negative) LPF Urine Mucus (Negative) Ur Culture Indicated? Urine Glucose (Negative) mg/dL Range/Units 09/02/20 18:35 WBC (4.4-10.8) 10^3/uL RBC (3.93-5.22) 10^6/uL Hgb (11.2-15.7) g/dL Hct (36.0-46.0) % MCV (80-95) fL MCH (27.0-33.0) pg MCHC (32.0-36.0) % RDW (11.7-14.6) % Plt Count (130-400) 10^3/uL MPV (8.0-11.0) fL Immature Gran % Neutrophils % Lymphocytes % Monocytes % Eosinophils % Basophils % Nucleated RBC % % Absolute Neutrophils (1.2-6.7) 10^3/uL Absolute Lymphocytes (1.2-3.4) 10^3/uL Absolute Monocytes (0.1-0.8) 10^3/uL Absolute Eosinophils (0.0-0.7) 10^3/uL Absolute Basophils (0.0-0.2) 10^3/uL Sodium (136-145) mmol/L Potassium (3.5-5.1) mmol/L Chloride (98-107) mmol/L Carbon Dioxide (21.0-32.0) mmol/L Anion Gap (3-11) mmol/L BUN (7-18) mg/dL Creatinine (0.55-1.02) mg/dL Estimated GFR/1.73 m2 (mL/min/1.73m2) Glucose (74-106) mg/dL Calcium (8.5-10.1) mg/dL Total Bilirubin (0.2-1.0) mg/dL AST (15-37) U/L ALT (14-59) U/L Alkaline Phosphatase (46-116) U/L Total Protein (6.4-8.2) g/dL Albumin (3.4-5.0) g/dL Lipase (73-393) U/L Urine Color (Yellow) Yellow Urine Clarity (Clear) Clear Urine pH (5-8) 6.5 Ur Specific Frederick (1.005-1.025) 1.020 Urine Protein (Negative) mg/dL 30 H Urine Ketones (Negative) mg/dL Negative Urine Blood (Negative) Negative Urine Nitrite (Negative) Negative Urine Bilirubin (Negative) Negative Urine Urobilinogen (Up TO 0.2) EU/dL 0.2 Ur Leukocyte Esterase (Negative) Negative Urine RBC (0-2) HPF Negative Urine WBC (0-5) HPF 0-2 Ur Epithelial Cells (Negative) HPF Moderate Urine Crystals (Negative) HPF Negative Urine Bacteria (Negative) HPF Moderate Urine Casts (Negative) LPF 0-2 Hyaline Urine Mucus (Negative) Trace Ur Culture Indicated? No/Sq. Contamination Urine Glucose (Negative) mg/dL Negative HPI General Mode of arrival: ambulatory. Date/Time Provider Initiated Documentation: 09/02/20 17:18. Limitations to Documentation: no limitations. Information obtained by: patient. HPI Narrative: Patient is a 64-year-old female presents to the ED with complaint of vomiting, diarrhea and abdominal pain for the past 2 days. Patient states she vomited multiple times starting 2 days ago, mainly dry heaving yesterday, and spitting up white foam today. She states her diarrhea has been mainly loose and the color has been black which she has been attributing to taking iron recently. She states she has had black-colored stools for quite some time now. She denies any hematemesis, hematochezia or melena. She states her abdominal pain feels diffuse but mainly in the upper and lower abdomen. She describes it as aching and burning. She states she took her temperature last night and it was 100 oral. She denies chest pain, shortness of breath, urinary symptoms, recent travel, recent antibiotics or known sick contacts. She states she has had similar episodes occurring over the past few months. She does have a history of GERD for which she takes Protonix and Carafate but has not picked up her Protonix prescription and has missed several doses recently. Related Data Home Medications Medication Instructions Recorded Confirmed Atorvastatin Calcium 20 mg PO HS tab-cap 12/17/16 09/02/20 Multi-Day Plus Minerals 1 ea PO DAILY 12/17/16 09/02/20 calcium carbonate-vitamin D3 1 ea PO DAILY 12/17/16 09/02/20 [Calcium 500 + D] clonazepam 1 mg PO BID tab-cap 12/17/16 09/02/20 glucosam-chond th-qruhet-an ac 1 ea PO DAILY 12/17/16 09/02/20 olanzapine 10 mg PO HS tab-cap 12/17/16 09/02/20 omega-3 fatty acids-fish oil 1 ea PO DAILY 12/17/16 09/02/20 cyclobenzaprine 10 mg PO TID PRN #8 tab 02/19/17 06/03/20 sucralfate 1 gram tablet 1 gm PO .COMPLEX 01/04/19 09/02/20 lisinopril 20 mg PO DAILY 04/02/19 09/02/20 melatonin 5 mg PO HS PRN 04/02/19 09/02/20 ondansetron 4 mg PO Q6H PRN #14 tab 02/14/20 09/02/20 promethazine 25 mg PO TID PRN #10 tab 06/03/20 pantoprazole 40 mg PO DAILY 09/02/20 09/02/20 sucralfate [Carafate] 1 gm PO QACHS #14 tab 09/02/20 venlafaxine [Effexor XR] 105 mg PO HS 09/02/20 09/02/20 Previous Rx's Medication Instructions Recorded cyclobenzaprine 10 mg PO TID PRN #8 tab 02/19/17 ondansetron 4 mg PO Q6H PRN #14 tab 02/14/20 promethazine 25 mg PO TID PRN #10 tab 06/03/20 sucralfate [Carafate] 1 gm PO QACHS #14 tab 09/02/20 Allergies Allergy/AdvReac Type Severity Reaction Status Date / Time trazodone AdvReac Mild WIRED Unverified 09/02/20 17:01 General Stated Complaint: Nausea/Vomit/Diar EBONY: 3 Review of Systems All systems reviewed & are unremarkable except as noted in HPI and below Constitutional Constitutional: Reports as per HPI, Denies chills and Denies fever(s) Eyes Eyes: Denies blurry vision ENT Ears, Nose, Mouth, and Throat: Denies dizziness, Denies sore throat and Denies throat swelling Cardiovascular Cardiovascular: Denies chest pain and Denies dyspnea Respiratory Respiratory: Denies cough and Denies dyspnea Gastrointestinal Gastrointestinal: Reports abdominal pain, Reports diarrhea, Reports nausea and Reports vomiting Genitourinary Genitourinary: Denies hematuria and Denies dysuria Musculoskeletal Musculoskeletal: Denies back pain and Denies numbness Integumentary/Breasts Skin/Breast: Denies lesions and Denies rash Neurologic Neurologic: Denies dizziness, Denies localized weakness and Denies numbness Allergic/Immunologic Allergic/Immunologic: Denies throat swelling [facility] Medical History (Updated 09/02/20 @ 19:54 by Luba Lorenzo DO) Anemia Anxiety Benign tumor of pituitary gland Chronic vomiting Depression GERD (gastroesophageal reflux disease) Grief reaction Hiatal hernia History of hepatitis History of HPV infection History of Lyme disease Hyperlipidemia Joint pain Low back pain Neck pain PTSD (post-traumatic stress disorder) Shortness of breath Surgical History EGD - MAC (01/13/17) Social History Smoking/Tobacco Use Status: Current every day Tobacco Type: cigarettes Smoking risk assessment performed?: Yes Alcohol Intake: current Alcohol Intake frequency: holidays/special occasions only Alcohol type: beer Drug use: Occasionally Substance use type: marijuana Do you feel safe at home: Yes Do you feel safe in your relationship?: Yes Exam Const General: cooperative and no acute distress HENMT Head: normal to inspection Face and sinus: normal facial exam Eyes General: appearance normal, both eyes and all related structures EOM: EOM intact bilaterally Neck Neck: normal visual inspection and No submandibular swelling Lymphatic: no lymphadenopathy noted Chest Chest: normal inspection of the chest and no tenderness Resp Effort & Inspection: normal respiratory effort and able to speak in complete sentences Auscultation: clear to auscultation bilaterally Cardio Rate: regular rate Rhythm: regular rhythm GI Inspection: normal to inspection Palpation: soft, not firm, not rigid and tender (diffuse, mild) Auscultation: normal bowel sounds Rectal Exam - female: visual inspection normal and heme negative stool (black) Back/Spine/Pelvis Thoracic/Lumbar Spine: thoracic and lumbar spine normal to inspection Pelvis: no pain with anterior-posterior compression Skin General skin exam: no rashes or lesions noted Neuro General: patient alert, patient awake and patient oriented x3 Cognition: normal cognition Speech: speech normal Motor: muscle tone normal throughout Sensory Exam: no sensory deficits noted Extrem General: normal to inspection, full ROM, capillary refill normal, no calf tenderness bilaterally and no edema Psych Appearance: grossly normal Mental Status: mental status grossly normal Speech and Movement: speech and movement normal Affect: normal affect Course Vital Signs Vital signs: Vital Signs Temperature 97.9 F 09/02/20 16:55 Pulse 83 09/02/20 16:55 Respiratory Rate 16 09/02/20 16:55 Blood Pressure 97/58 L 09/02/20 16:55 Pulse Oximetry 96 09/02/20 16:55 Temperature 97.9 F 09/02/20 16:55 Temperature Source Temporal Artery Scan 09/02/20 16:55 Pulse 83 09/02/20 16:55 Respiratory Rate 16 09/02/20 16:55 Blood Pressure 97/58 L 09/02/20 16:55 Blood Pressure Position Supine 09/02/20 16:55 Pulse Oximetry 96 07/18/21 16:55 Oxygen Delivery Method Room Air 09/02/20 16:55 Oxygen Flow Rate 0 09/02/20 16:55 Pain Level 6 09/02/20 16:55
--- NOTE | 2020-09-02 17:30 | DI.CT_ITS ---
Exam(s) CT ABDOMEN PELVIS W EXAM: CT ABDOMEN PELVIS W CLINICAL HISTORY: diffuse abd pain, vomiting, diarrhea. TECHNIQUE: Imaging Protocol: Axial computed tomography images with coronal and sagittal reformatted images were created and reviewed CONTRAST MATERIAL: Intravenous: Omnipaque 100cc Oral: None COMPARISON: CT CT CHEST/ABD/PEL WO from 06/03/2020 FINDINGS: VISUALIZED LUNG BASES: Tiny nodular subpleural density in the lateral left lung base is unchanged.. ABDOMEN: There is no ascites. LIVER: There are no focal hepatic lesions evident. No dilatation of intrahepatic ducts. GALLBLADDER/BILIARY: No obvious gallbladder pathology. CBD is not dilated. PANCREAS: No evidence of pancreatic mass nor dilatation of the pancreatic duct. SPLEEN: Spleen is not enlarged. No obvious intrasplenic lesions. Splenic and portal veins are paten t. ADRENALS: There are no significant adrenal masses. KIDNEYS:The left kidney is somewhat atrophic were cortical thinning evident. No obstruction. No medhat culi nor masses. The opposite-right kidney appears unremarkable. No hydronephrosis on either side.. ABDOMINAL AORTA: Abdominal aorta is not enlarged. LYMPH NODES:There is no retroperitineal nor paraaortic adenopathy. ABDOMINAL WALL: There is a small fat containing umbilical hernia, uncomplicated. GI: There is no evidence of bowel obstruction, free air, nor abscess. The cecum is sitting lobe upon the urinary bladder and indents the right side of the urinary bladder. PELVIS: GI: No evidence of appendicitis.No evidence of sigmoid diverticulitis. LYMPH NODES: There is no intrapelvic nor inguinal adenopathy. REPRODUCTIVE: Uterus and adnexal regions are age-appropriate. URINARY BLADDER: Right side of the urinary bladder is indented by fecal filled cecum. OSSEOUS: No significant osseous lesions. However, there is expansion of both sides the sacral canal again noted with some cortical dehiscence. 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 This is also unchanged from Mar ruary 2019 IMPRESSION: 1. Pressure CT scan listed above there is again noted an element of atrophy in the left kidney. Righ t kidney appears unremarkable. 2. Fat containing umbilical hernia which does not contain bowel loops. There is no bowel obstruction . No free air. 3. Postop changes again noted at the GE junction. Small hiatal hernia. 4. RADIATION DOSE DELIVERED: 770.71mGy.cm Total DLP DATA REPOSITORY: All CT scans at this facility are submitted to the National Radiology Data Registry (NRDR) Dose Index Registry (DIR) with the [employer] (A[employer]). RADIATION OPTIMIZATION: All CT scans at this facility use at least one of these dose optimization te chniques: automated exposure control; mA and/or kV adjustment per patient size (includes targeted exa ms where dose is matched to clinical indication); or iterative reconstruction.
[2020-09-02] MEDS: ACETAMINOPHEN 1,000 MG/100 ML BTL 400 MG IVPB (17:35)
[2020-09-02 17:38] LABS: ALT 21 U/L (14-59); AST 15 U/L (15-37); Albumin 3.6 g/dL (3.4-5.0); Alkaline Phosphatase 95 U/L (46-116); Anion Gap 6.7 mmol/L (3-11); BUN 17 mg/dL (7-18); Bilirubin, Total 0.5 mg/dL (0.2-1.0); CO2 26.3 mmol/L (21.0-32.0); CREATININE 1.1 mg/dL (0.55-1.02); Calcium 8.7 mg/dL (8.5-10.1); Chloride 107 mmol/L (98-107); Estimated GFR 49.69 (mL/min/1.73m2); Glucose 125 mg/dL (74-106); Sodium 140 mmol/L (136-145); Total Protein 6.6 g/dL (6.4-8.2)
[2020-09-02 17:41] LABS: Abs Immature Grans 0.03 10^3/uL (0.0-0.06); Absolute Basophil Count 0.04 10^3/uL (0.0-0.2); Absolute Eosinophil Count 0.02 10^3/uL (0.0-0.7); Absolute Lymphocyte Count 1.59 10^3/uL (1.2-3.4); Absolute Monocyte Count 0.62 10^3/uL (0.1-0.8); Absolute Neutrophil Count 6.92 10^3/uL (1.2-6.7); Basophils % 0.4; Eosinophils % 0.2; HCT 35.1 % (36.0-46.0); HGB 11.6 g/dL (11.2-15.7); Immature Grans % 0.3; Lymphocytes % 17.2; MCH 30.9 pg (27.0-33.0); MCV 93.4 fL (80-95); MPV 9.4 fL (8.0-11.0); Monocytes % 6.7; Neutrophils % 75.2; Nucleated RBC 0 %; Platelet Count 285 10^3/uL (130-400); RBC 3.76 10^6/uL (3.93-5.22); RDW 13.3 % (11.7-14.6); RDW-SD 45.6 fL; WBC 9.22 10^3/uL (4.4-10.8)
[2020-09-02] MEDS: Normal Saline 1,000 ML 1000 ML IV (17:56)
[2020-09-02 17:58] LABS: Lipase 84 U/L (73-393)
[2020-09-02 18:44] VITALS: BP 105/45; TEMP 36.7
[2020-09-02] MEDS: Omnipaque 350 MG/ML 100 ML BTL IJ (18:50)
[2020-09-02] MEDS: Normal Saline - Diluent 50 ML VIAL IV (18:52)
[2020-09-02] MEDS: Normal Saline Flush 10 ML SYR IVP (18:52)
[2020-09-02 19:16] LABS: Bilirubin Negative (Negative); Blood Negative (Negative); Clarity Clear (Clear); Glucose Negative (Negative); Ketones Negative (Negative); Leukocyte Esterase Negative (Negative); Nitrite Negative (Negative); Urobilinogen 0.2 EU/dL (Up TO 0.2); pH 6.5 (5-8)
--- NOTE | 2020-09-02 19:18 | DI.VRAD_ITS ---
PROCEDURE INFORMATION: Exam: CT Abdomen And Pelvis With Contrast Exam date and time: 09/02/2020 5:33 PM Age: 64 years old Clinical indication: Vomiting and other: Diarrhea; Abdominal pain; Generalized; Patient HX: Diffuse abd pain, vomiting, diarrhea. R/O appy, cholecystitis, sbo, colitis TECHNIQUE: Imaging protocol: Computed tomography of the abdomen and pelvis with contrast. Total images: 1135 Radiation optimization: All CT scans at this facility use at least one of these dose optimization techniques: automated exposure control; mA and/or kV adjustment per patient size (includes targeted exams where dose is matched to clinical indication); or iterative reconstruction. Contrast material: OMNIPAQUE 350; Contrast volume: 100 ml; Contrast route: INTRAVENOUS (IV); COMPARISON: CT CHEST/ABD/PEL WO 06/03/2020 5:05 PM FINDINGS: Liver: Normal. No mass. Gallbladder and bile ducts: Normal. No calcified stones. No ductal dilation. Pancreas: Normal. No ductal dilation. Spleen: Normal. No splenomegaly. Adrenal glands: Normal. No mass. Kidneys and ureters: The left kidney is small with cortical thinning. The right kidney is unremarkable. Stomach and bowel: Unremarkable. No obstruction. No mucosal thickening. Appendix: The appendix is normal (series 4, image 69). Intraperitoneal space: Unremarkable. No free air. No significant fluid collection. Vasculature: Unremarkable. No abdominal aortic aneurysm. Lymph nodes: Unremarkable. No enlarged lymph nodes. Urinary bladder: Unremarkable as visualized. Reproductive: Unremarkable as visualized. Bones/joints: Unremarkable. No acute fracture. Soft tissues: Unremarkable. IMPRESSION: No acute disease in abdomen or pelvis. Dictated and Authenticated by: Hai Leslie MD. Ordering:CHAN Verduzco MD
[2020-09-02 19:22] LABS: Bacteria Moderate HPF (Negative); Casts 0-2 Hyaline LPF (Negative); Crystals Negative HPF (Negative); Epithelial Cells Moderate HPF (Negative); Mucus Trace (Negative); RBC Negative HPF (0-2); WBC 0-2 HPF (0-5)
[2020-09-02 19:23] LABS: C & S Indicated? No/Sq. Contamination
--- NOTE | 2020-09-02 21:31 | NUR.NOTE ---
Referral [facility]ed to [facility] to f/u 1-2 weeks vomiting, diarrhea with pain.Nursing Note:
== END 2020-09-02 20:27 | disposition home or self-care (01) ==
PROVIDERS: Emergency Provider Physician Assistant; PCP Nurse Practitioner Family
DX: R11.2 Nausea with vomiting, unspecified (principal); R19.7 Diarrhea, unspecified; R10.84 Generalized abdominal pain
CPT/HCPCS: 36415; 80053; 83690; 93005; 96365; 99285; 74177; 81003; 81015; 85025; 93010; J0131; J3490

== ENCOUNTER 2020-11-05 08:03 | Outpatient (CLI) | payer MEDICARE, MEDICAID, SELFPAY ==
[2020-11-05 14:56] LABS: Ferritin 38 ng/mL (8-252)
== END 2020-11-05 08:04 | disposition home or self-care (01) ==
LOC: LBO 08:09
PROVIDERS: PCP Nurse Practitioner Family; Visit Provider Nurse Practitioner Family
DX: M25.551 Pain in right hip (principal)
CPT/HCPCS: 36415; 82728

== ENCOUNTER 2021-07-11 17:17 | Outpatient (REF) | payer MEDICARE, MEDICAID, SELFPAY ==
[2021-07-11 18:51] LABS: HCT 39.8 % (36.0-46.0); HGB 12.9 g/dL (11.2-15.7); MCH 30.7 pg (27.0-33.0); MCHC 32.4 % (32.0-36.0); MCV 95 fL (80-95); Platelet Count 292 10^3/uL (130-400); RDW 12.7 % (11.7-14.6); WBC 8.92 10^3/uL (4.4-10.8)
[2021-07-11 19:22] LABS: Anion Gap 11.5 mmol/L (3-11); BUN 18 mg/dL (7-18); CO2 25.5 mmol/L (21.0-32.0); CREATININE 1.1 mg/dL (0.55-1.02); Calcium 9.6 mg/dL (8.5-10.1); Chloride 102 mmol/L (98-107); Estimated GFR 49.54 (mL/min/1.73m2); Glucose 108 mg/dL (74-106); Sodium 139 mmol/L (136-145)
[2021-07-11 19:23] LABS: Iron 92 ug/dL (50-170); Total Iron Binding Capacity 361 ug/dL (250-450); Transferrin Sat 25 % (15-50)
[2021-07-15 10:50] LABS: Lyme Ab w Rflx to Lyme Confirm Negative (Negative)
== END 2021-07-11 17:18 | disposition home or self-care (01) ==
LOC: NCHCN 17:17
PROVIDERS: PCP Nurse Practitioner Family; Visit Provider Nurse Practitioner Family
DX: I10 Essential (primary) hypertension (principal); D64.9 Anemia, unspecified; F41.8 Other specified anxiety disorders; W57.XXXA Bitten or stung by nonvenomous insect and other nonvenomous arthropods, initial encounter; T14.8XXA Other injury of unspecified body region, initial encounter
CPT/HCPCS: 80048; 85027; 83540; 83550; 86618

== ENCOUNTER 2022-05-06 19:03 | Outpatient (REF) | payer OTHER, MEDICAID, SELFPAY ==
[2022-05-07 09:40] LABS: BUN 24 mg/dL (7-18); CREATININE 1.2 mg/dL (0.55-1.02); Calcium 10.5 mg/dL (8.5-10.1); Estimated GFR 49.31 (mL/min/1.73m2); Glucose 115 mg/dL (74-106); Potassium 4.5 mmol/L (3.5-5.1); Sodium 142 mmol/L (136-145)
[2022-05-07 09:41] LABS: Anion Gap 8.7 mmol/L (3-11); CO2 28.3 mmol/L (21.0-32.0); Chloride 105 mmol/L (98-107)
[2022-05-07 09:42] LABS: RBC 4.35 10^6/uL (3.93-5.22); WBC 11.14 10^3/uL (4.4-10.8)
[2022-05-07 09:43] LABS: HCT 40.6 % (36.0-46.0); HGB 13.3 g/dL (11.2-15.7); MCH 30.6 pg (27.0-33.0); MCHC 32.8 % (32.0-36.0); MCV 93 fL (80-95); RDW-SD 46.3 fL
[2022-05-07 09:44] LABS: MPV 10.3 fL (8.0-11.0); Platelet Count 302 10^3/uL (130-400); RDW 13.4 % (11.7-14.6)
== END 2022-05-06 19:04 | disposition home or self-care (01) ==
LOC: NCHCN 19:03
PROVIDERS: PCP Nurse Practitioner Family; Visit Provider Nurse Practitioner Family
DX: R11.2 Nausea with vomiting, unspecified (principal); I10 Essential (primary) hypertension; D64.9 Anemia, unspecified; F41.8 Other specified anxiety disorders; F17.210 Nicotine dependence, cigarettes, uncomplicated
CPT/HCPCS: 80048; 85027

== ENCOUNTER 2022-06-05 02:58 | Outpatient (CLI) | payer OTHER, MEDICAID, SELFPAY ==
--- NOTE | 2022-06-05 | DI.MAMMO_ITS ---
Exam(s) MAMMO SCREENING EXAM: MAMMO SCREENING CLINICAL HISTORY: SCREENING, Z12.39 TECHNIQUE: Mammograms were interpreted according to the usual protocol including computer analysis w [employer] CAD system, tomosynthesis and C-view imaging. COMPARISON: 2014 through 2020 FINDINGS: The breasts are composed of heterogeneously dense fibroglandular densities, Breast Density category C . No suspicious masses or suspicious microcalcifications are seen. No skin thickening or abnormal axillary lymph nodes are seen. There has been no significant change from prior exams. IMPRESSION: BI-RADS Category 1, Negative mammogram. Yearly screening mammography is recommended. Breast Density Category C, heterogeneously Dense. The mammogram demonstrates the patient's breast tissue is dense. Dense breast tissue is very common a nd is not abnormal but dense breast tissue can make it harder to find cancer on a mammogram. Also, de nse breast tissue may increase breast cancer risk. This information about the result of the mammogram report was provided to the patient to raise their awareness. Use this report when you speak with the patient about their risks for breast cancer, which includes their family history. At that time, you may recommend additional screening tests (Ultrasound or MRI) as they might be useful based on their r isk. A negative radiographic report should not delay biopsy if a dominant or clinically suspicious mass is present. Up to ten percent of cancers are not identified on mammography. A negative report may reinforce clinical impression. Adenosis and dense breasts may obscure an underlying neoplasm. False positive reports average 6 to 10%.
== END 2022-06-05 03:18 ==
LOC: DI 02:59
PROVIDERS: PCP Nurse Practitioner Family; Visit Provider Nurse Practitioner Family
DX: Z12.31 Encounter for screening mammogram for malignant neoplasm of breast (principal)
CPT/HCPCS: 77063; 77067

== ENCOUNTER 2022-07-16 15:19 | Outpatient (REF) | payer OTHER, MEDICAID, SELFPAY ==
[2022-07-16 19:55] LABS: Abs Immature Grans 0.03 10^3/uL (0.0-0.06); Absolute Basophil Count 0.06 10^3/uL (0.0-0.2); Absolute Eosinophil Count 0.18 10^3/uL (0.0-0.7); Absolute Lymphocyte Count 2.22 10^3/uL (1.2-3.4); Absolute Monocyte Count 0.67 10^3/uL (0.1-0.8); Basophils % 0.6; Eosinophils % 1.8; HCT 41.1 % (36.0-46.0); HGB 13.7 g/dL (11.2-15.7); Immature Grans % 0.3; Lymphocytes % 21.9; MCH 30.9 pg (27.0-33.0); MCHC 33.3 % (32.0-36.0); MCV 93 fL (80-95); MPV 9.5 fL (8.0-11.0); Monocytes % 6.6; Neutrophils % 68.8; Platelet Count 342 10^3/uL (130-400); RBC 4.44 10^6/uL (3.93-5.22); RDW 12.6 % (11.7-14.6); RDW-SD 43.1 fL; WBC 10.16 10^3/uL (4.4-10.8)
[2022-07-16 20:14] LABS: TSH (W/Ref FT4) 1.27 uIU/mL (0.36-3.74)
== END 2022-07-16 15:20 | disposition home or self-care (01) ==
LOC: NCHCN 15:19
PROVIDERS: PCP Nurse Practitioner Family; Visit Provider Nurse Practitioner Family
DX: R53.83 Other fatigue (principal); K92.1 Melena
CPT/HCPCS: 84443; 85025

== ENCOUNTER → 2022-11-13 03:22 | Outpatient (CLI) | payer OTHER, MEDICAID, SELFPAY ==
--- NOTE | 2022-11-13 08:15 | DI.RAD_ITS ---
Exam(s) XR FOOT LT COMPLETE EXAM: XR FOOT LT COMPLETE CLINICAL HISTORY: Left foot Pain,M79.672. TECHNIQUE: 2D digital imaging was performed. COMPARISON: No exams were available for comparison FINDINGS: 3 views No evidence of acute fracture or diastasis of the Lisfranc joint. There is some degenerative changes in the great toe metatarsophalangeal joint and there is medial subluxation of the proximal phalanx o f the great toe relative to the head of the great toe metatarsal, this by approximately 6 mm. The ot her metatarsophalangeal joints appear unremarkable. Mild degenerative changes noted at the 2nd and 3 rd tarsometatarsal joints. Tiny inferior calcaneal spur noted. There is no calcification in the bon ntar fascia. No evidence of osseous tarsal coalition. No pes planus. IMPRESSION: Moderate degenerative changes and subluxation at the level of the great toe metatarsophalangeal joint , as described above. DATA REPOSITORY: RADIATION DOSE DELIVERED:
== END ==
PROVIDERS: PCP Nurse Practitioner Family; Visit Provider Podiatrist
DX: M79.672 Pain in left foot (principal)
CPT/HCPCS: 73630

== ENCOUNTER → 2022-12-17 15:01 | Outpatient (BNVA) | payer OTHER, MEDICAID, SELFPAY | PROVIDERS: PCP Nurse Practitioner Family; Referring Provider Nurse Practitioner Family; Visit Provider Podiatrist | DX: M79.672 Pain in left foot (principal); M77.42 Metatarsalgia, left foot; M20.42 Other hammer toe(s) (acquired), left foot; M20.32 Hallux varus (acquired), left foot; B35.1 Tinea unguium | CPT/HCPCS: 99213 ==

== ENCOUNTER 2022-12-17 21:24 | Outpatient (REF) | payer OTHER, MEDICAID, SELFPAY ==
[2022-12-17 18:32] LABS: ALT 23 U/L (14-59); AST 19 U/L (15-37); Albumin 4.1 g/dL (3.4-5.0); Alkaline Phosphatase 134 U/L (46-116); Anion Gap 9.3 mmol/L (3-11); BUN 23 mg/dL (7-18); Bilirubin, Total 0.4 mg/dL (0.2-1.0); CO2 25.7 mmol/L (21.0-32.0); CREATININE 1.2 mg/dL (0.55-1.02); Calcium 10.5 mg/dL (8.5-10.1); Chloride 102 mmol/L (98-107); Glucose 122 mg/dL (74-106); Potassium 4.4 mmol/L (3.5-5.1); Sodium 137 mmol/L (136-145); Total Protein 8.1 g/dL (6.4-8.2)
== END 2022-12-17 21:25 | disposition home or self-care (01) ==
LOC: NCHCN 21:24
PROVIDERS: PCP Nurse Practitioner Family; Visit Provider Nurse Practitioner Family
DX: R94.4 Abnormal results of kidney function studies (principal); I10 Essential (primary) hypertension; E78.5 Hyperlipidemia, unspecified
CPT/HCPCS: 80053

== ENCOUNTER 2022-12-30 19:24 | Outpatient (REF) | payer OTHER, MEDICAID, SELFPAY ==
[2022-12-30 20:03] LABS: Calcium 10.5 mg/dL (8.5-10.1)
[2022-12-31 18:14] LABS: Parathyroid Hormone,Intact 33 pg/mL (19-88)
== END 2022-12-30 19:25 | disposition home or self-care (01) ==
LOC: NCHCN 19:24
PROVIDERS: PCP Nurse Practitioner Family; Visit Provider Nurse Practitioner Family
DX: R79.89 Other specified abnormal findings of blood chemistry (principal)
CPT/HCPCS: 82310; 83970

== ENCOUNTER 2023-06-04 15:14 | Outpatient (REF) | payer OTHER, SELFPAY ==
[2023-06-04 19:21] LABS: Abs Immature Grans 0.05 10^3/uL (0.0-0.06); Absolute Basophil Count 0.06 10^3/uL (0.0-0.2); Absolute Eosinophil Count 0.04 10^3/uL (0.0-0.7); Absolute Lymphocyte Count 1.71 10^3/uL (1.2-3.4); Absolute Monocyte Count 0.54 10^3/uL (0.1-0.8); Absolute Neutrophil Count 9.93 10^3/uL (1.2-6.7); Basophils % 0.5; Eosinophils % 0.3; HCT 41.4 % (36.0-46.0); HGB 13.7 g/dL (11.2-15.7); Immature Grans % 0.4; Lymphocytes % 13.9; MCH 30.6 pg (27.0-33.0); MCHC 33.1 % (32.0-36.0); MCV 92 fL (80-95); MPV 10.3 fL (8.0-11.0); Monocytes % 4.4; Neutrophils % 80.5; Platelet Count 299 10^3/uL (130-400); RBC 4.48 10^6/uL (3.93-5.22); RDW 12.9 % (11.7-14.6); RDW-SD 43.6 fL; WBC 12.33 10^3/uL (4.4-10.8)
[2023-06-04 19:42] LABS: ALT 23 U/L (14-59); AST 14 U/L (15-37); Albumin 4.1 g/dL (3.4-5.0); Alkaline Phosphatase 149 U/L (46-116); Anion Gap 10.4 mmol/L (3-11); BUN 19 mg/dL (7-18); Bilirubin, Total 0.4 mg/dL (0.2-1.0); CO2 26.6 mmol/L (21.0-32.0); CREATININE 1.1 mg/dL (0.55-1.02); Calcium 10.1 mg/dL (8.5-10.1); Chloride 104 mmol/L (98-107); Estimated GFR 54.39 (mL/min/1.73m2); FREE T4 0.79 ng/dL (0.76-1.46); Glucose 126 mg/dL (74-106); Potassium 4.6 mmol/L (3.5-5.1); Sodium 141 mmol/L (136-145); TSH 0.88 uIU/Ml (0.36-3.74); Total Protein 7.6 g/dL (6.4-8.2)
[2023-06-04 19:55] LABS: Hemoglobin A1C 6.2 % (<5.7)
[2023-06-04 20:05] LABS: Ferritin 51 ng/mL (8-252)
[2023-06-04 20:15] LABS: Iron 47 ug/dL (50-170); Total Iron Binding Capacity 398 ug/dL (250-450); Transferrin Sat 12 % (15-50)
== END 2023-06-04 15:15 | disposition home or self-care (01) ==
LOC: NCHCN 15:14
PROVIDERS: PCP Nurse Practitioner Family; Visit Provider Nurse Practitioner Family
DX: R53.83 Other fatigue (principal)
CPT/HCPCS: 80053; 82306; 82728; 83036; 83540; 83550; 84439; 84443; 85025

== ENCOUNTER → 2023-07-06 04:31 | Outpatient (CLI) | payer OTHER, MEDICAID, SELFPAY ==
--- NOTE | 2023-07-06 | DI.CTLCSR_ITS ---
Exam(s) CT CHEST LUNG CANCER SCREEN EXAM: CT CHEST LUNG CANCER SCREEN CLINICAL HISTORY: NICOTINE DEPENDENCE, CURRENT SMOKER, F17.210, SCREENING FOR LUNG CANCER. TECHNIQUE: Imaging Protocol: Low Dose Technique CONTRAST MATERIAL: None COMPARISON: CT CT CHEST/ABD/PEL WO from 06/03/2020 FINDINGS: CHEST: LUNGS: The left lung there is an unchanged 3 millimeter nodule located peripherally in left upper lob e, unchanged from 06/03/2020. another small 3-4 millimeter nodule in the lateral basal segment of the left lower lobe is also unchanged. Third 3 millimeter nodule lower down the left lower lobe is also unchanged. There are no new nodules in either lung field. No pleural effusions.. There are no con fluent infiltrates. No pleural effusions. MEDIASTINUM: There is no obvious hilar nor mediastinal adenopathy. CARDIAC: Heart size is normal. There is no pericardial effusion.Caliber of the thoracic aorta is wit hin normal limits. OTHER: Left kidney is atrophic.. Right kidney unremarkable. OSSEOUS: No significant osseous lesions.. IMPRESSION: 1. Compared to the prior CT scan of 06/03/2020 there are 3 small benign-appearing nodules in the left lung which are unchanged from September 2020. no new nodules in either lung field. No new infiltrates nor pleural effusions. No intrathoracic adenopathy. 2. Atrophic left kidney noted. 3. Lung RADS Cat 2S - Benign Appearance / Behavior: Nodules with a very low likelihood of becoming a clinically active cancer due to size or lack of growth Atrophic left kidney. Lung-RADS 1.0 CATEGORIES: Category 0 - Prior chest CT exam(s) being located for comparison. Category 1 - Annual screening in 12 months. No nodules or definitely benign nodules. Category 2 - Annual screening in 12 months. Benign appearance. Nodules with low likelihood of becomin g active cancer. Category 3 - 6-month follow-up. Probably benign. Short-term follow-up suggested. Nodules with low lik elihood of becoming active cancer. Category 4A - 3-month follow-up and CT/PET if >8 mm in size. Suspicious finding. Findings which requi re additional testing. Category 4B - Findings which require additional testing and tissue sampling. Category 4X - Category 3 or 4 nodules with additional features or imaging findings that increases the suspicion of malignancy. Modifier S- Potentially clinically significant findings (non lung cancer) RADIATION DOSE DELIVERED: 75.1mGy.cm Total DLP DATA REPOSITORY: All CT scans at this facility are submitted to the National Radiology Data Registry (NRDR) Dose Index Registry (DIR) with the [employer] (ACR). RADIATION OPTIMIZATION: All CT scans at this facility use at least one of these dose optimization te chniques: automated exposure control; mA and/or kV adjustment per patient size (includes targeted exa ms where dose is matched to clinical indication); or iterative reconstruction.
== END ==
PROVIDERS: PCP Nurse Practitioner Family; Visit Provider Nurse Practitioner Family
DX: F17.210 Nicotine dependence, cigarettes, uncomplicated (principal); Z12.2 Encounter for screening for malignant neoplasm of respiratory organs; R91.8 Other nonspecific abnormal finding of lung field
CPT/HCPCS: 71271

== ENCOUNTER 2023-07-31 03:02 | Outpatient (CLI) | payer OTHER, SELFPAY ==
[2023-07-31] MEDS: Levalbuterol HFA 15 GM INH 4 PUFF IH (16:13)
[2023-07-31] MEDS: Inhaler, Assist Device 1 EACH MC (16:14)
--- NOTE | 2023-08-03 12:56 | W.PFT ---
Date of service: 07/31/23 Time of Service: 15:02 Pulmonary Function Test Result Indications: Dyspnea on exertion Interpretation Spirometry: There is no airflow limitation. No bronchodilator response. Lung Volumes: Normal lung volumes Diffusion Capacity: Normal diffusion Airway Pressure: Increased airways resistance Impression Normal pulmonary function, increased airways resistance, which could represent asthma. Clinical Correlation therefore is recommended.
== END 2023-07-31 03:03 | disposition home or self-care (01) ==
LOC: RT 03:02
PROVIDERS: Visit Provider Nurse Practitioner Family
DX: R06.00 Dyspnea, unspecified (principal)
CPT/HCPCS: 94060; 94726; 94729

== ENCOUNTER 2023-11-02 20:11 | Outpatient (REF) | payer OTHER, MEDICAID, SELFPAY ==
[2023-11-02 18:25] LABS: BUN 13 mg/dL (7-18); CREATININE 1.2 mg/dL (0.55-1.02)
== END 2023-11-02 20:12 | disposition home or self-care (01) ==
LOC: NCHCN 20:11
PROVIDERS: Visit Provider Nurse Practitioner Psychiatric/Mental Health
DX: F32.A Depression, unspecified (principal)
CPT/HCPCS: 84520; 82565

== ENCOUNTER 2023-11-25 16:05 | Outpatient (REF) | payer OTHER, MEDICAID, SELFPAY ==
[2023-11-25 19:40] LABS: Abs Immature Grans 0.04 10^3/uL (0.0-0.06); Absolute Basophil Count 0.06 10^3/uL (0.0-0.2); Absolute Lymphocyte Count 2.48 10^3/uL (1.2-3.4); Absolute Monocyte Count 0.64 10^3/uL (0.1-0.8); Absolute Neutrophil Count 6.19 10^3/uL (1.2-6.7); Basophils % 0.6 %; Eosinophils % 1.1 %; HCT 39.6 % (36.0-46.0); HGB 13.4 g/dL (11.2-15.7); Immature Grans % 0.4 %; Lymphocytes % 26.1 %; MCH 31.4 pg (27.0-33.0); MCHC 33.8 % (32.0-36.0); MCV 93 fL (80-95); Monocytes % 6.7 %; Neutrophils % 65.1 %; Platelet Count 302 10^3/uL (130-400); RBC 4.27 10^6/uL (3.93-5.22); RDW-SD 43.8 fL; WBC 9.51 10^3/uL (4.4-10.8)
[2023-11-25 20:03] LABS: Hemoglobin A1C 5.9 % (<5.7)
[2023-11-25 20:05] LABS: ALT 19 U/L (14-59); AST 13 U/L (15-37); Alkaline Phosphatase 132 U/L (46-116); Anion Gap 10.4 mmol/L (3-11); BUN 14 mg/dL (7-18); Bilirubin, Total 0.39 mg/dL (0.2-1.0); CO2 26.6 mmol/L (21.0-32.0); CREATININE 1.3 mg/dL (0.55-1.02); Calculated LDL 95 mg/dL (<100); Chloride 105 mmol/L (98-107); Cholesterol 189 mg/dL (<200); Estimated GFR 44.24 (mL/min/1.73m2); Glucose 97 mg/dL (74-106); HDL Cholesterol 52 mg/dL (40-60); Potassium 4.6 mmol/L (3.5-5.1); Sodium 142 mmol/L (136-145); Total Protein 7.3 g/dL (6.4-8.2); Triglyceride 213 mg/dL (<150)
[2023-11-25 20:35] LABS: Iron 43 ug/dL (50-170); Total Iron Binding Capacity 366 ug/dL (250-450); Transferrin Sat 12 % (15-50)
[2023-11-25 22:29] LABS: Ferritin 38 ng/mL (8-252)
== END 2023-11-25 16:06 | disposition home or self-care (01) ==
LOC: NCHCN 16:05
PROVIDERS: Visit Provider Nurse Practitioner Family
DX: E78.5 Hyperlipidemia, unspecified (principal); R73.03 Prediabetes
CPT/HCPCS: 80053; 80061; 82728; 83036; 83540; 83550; 85025

== ENCOUNTER 2024-05-18 16:55 | Outpatient (REF) | payer MEDICARE, MEDICAID, SELFPAY ==
[2024-05-18 20:11] LABS: Abs Immature Grans 0.04 10^3/uL (0.0-0.06); Absolute Basophil Count 0.07 10^3/uL (0.0-0.2); Absolute Eosinophil Count 0.03 10^3/uL (0.0-0.7); Absolute Lymphocyte Count 1.81 10^3/uL (1.2-3.4); Absolute Monocyte Count 0.43 10^3/uL (0.1-0.8); Absolute Neutrophil Count 7.44 10^3/uL (1.2-6.7); Basophils % 0.7 %; Eosinophils % 0.3 %; HCT 41.7 % (36.0-46.0); HGB 13.6 g/dL (11.2-15.7); Immature Grans % 0.4 %; Lymphocytes % 18.4 %; MCH 30.6 pg (27.0-33.0); MCHC 32.6 % (32.0-36.0); MCV 94 fL (80-95); MPV 10.2 fL (8.0-11.0); Monocytes % 4.4 %; Neutrophils % 75.8 %; Platelet Count 316 10^3/uL (130-400); RBC 4.45 10^6/uL (3.93-5.22); RDW-SD 44.7 fL; WBC 9.82 10^3/uL (4.4-10.8)
[2024-05-18 20:25] LABS: ALT 23 U/L (14-59); AST 17 U/L (15-37); Albumin 4.3 g/dL (3.4-5.0); Alkaline Phosphatase 123 U/L (46-116); Anion Gap 11.9 mmol/L (3-11); BUN 16 mg/dL (7-18); Bilirubin, Total 0.5 mg/dL (0.2-1.0); CO2 26.1 mmol/L (21.0-32.0); CREATININE 1.1 mg/dL (0.55-1.02); Calcium 10.7 mg/dL (8.5-10.1); Chloride 101 mmol/L (98-107); Estimated GFR 54.06 (mL/min/1.73m2); Glucose 117 mg/dL (74-106); Potassium 4.6 mmol/L (3.5-5.1); Sodium 139 mmol/L (136-145); Total Protein 8.1 g/dL (6.4-8.2)
[2024-05-18 21:19] LABS: Hemoglobin A1C 5.8 % (<5.7)
== END 2024-05-18 16:56 | disposition home or self-care (01) ==
LOC: NCHCN 16:55
PROVIDERS: Visit Provider Nurse Practitioner Family
DX: R73.03 Prediabetes (principal); F41.9 Anxiety disorder, unspecified
CPT/HCPCS: 80053; 83036; 85025

== ENCOUNTER 2024-07-30 12:48 | Observation (INO) | payer MEDICARE, MEDICAID, SELFPAY ==
[2024-07-30] VITALS (38 sets, daily range): BP systolic 158–213; BP diastolic 97–140; PULSE 83–134; RESP 12–31; TEMP 36.4–37.3; O2SAT 92–100
--- NOTE | 2024-07-30 13:00 | RT.EKG_ITS ---
APPROVED REPORT Exam: Resting ECG Reason for Exam: Nausea and Vomiting Patient Location: E HR:116 bpm ECG Measurements Heart Rate 116 AXIS MO 150 P 78 QRSd 78 QRS -79 QT 317 T 72 QTc 441 Conclusion Sinus tachycardia...rate> 99 LAD, consider left anterior fascicular block...axis(240,-40), S>R II III aVF Left ventricular hypertrophy...multiple LVH criteria No Occlusion ME. New T wave inversion. No ST segment elevation.
[2024-07-30 13:39] LABS: Abs Immature Grans 0.14 10^3/uL (0.0-0.06); Absolute Basophil Count 0.04 10^3/uL (0.0-0.2); Absolute Eosinophil Count 0.02 10^3/uL (0.0-0.7); Absolute Lymphocyte Count 1.47 10^3/uL (1.2-3.4); Absolute Monocyte Count 0.94 10^3/uL (0.1-0.8); Absolute Neutrophil Count 15.07 10^3/uL (1.2-6.7); Basophils % 0.2 %; Eosinophils % 0.1 %; HCT 47.5 % (36.0-46.0); HGB 16.1 g/dL (11.2-15.7); Immature Grans % 0.8 %; Lymphocytes % 8.3 %; MCH 30.5 pg (27.0-33.0); MCHC 33.9 % (32.0-36.0); MCV 90 fL (80-95); MPV 9.4 fL (8.0-11.0); Monocytes % 5.3 %; Neutrophils % 85.3 %; Platelet Count 401 10^3/uL (130-400); RBC 5.28 10^6/uL (3.93-5.22); RDW 12.1 % (11.7-14.6); RDW-SD 39.8 fL; WBC 17.67 10^3/uL (4.4-10.8)
[2024-07-30] MEDS: Pantoprazole 40 MG VIAL IVP (13:41)
[2024-07-30] MEDS: Ondansetron 4 MG/2 ML VIAL IVP ×2 (13:41→21:40)
[2024-07-30] MEDS: Famotidine 20 MG/2 ML VIAL IVP (13:41)
[2024-07-30] MEDS: diphenhydrAMINE 50 MG/ML VIAL 12.5 MG IVP (13:41)
[2024-07-30] MEDS: Lactated Ringers 1,000 ML 1000 ML IV (13:42)
[2024-07-30 14:07] LABS: ALT 19 U/L (14-59); AST 14 U/L (15-37); Albumin 4.7 g/dL (3.4-5.0); Alkaline Phosphatase 124 U/L (46-116); Anion Gap 19.5 mmol/L (3-11); BUN 12 mg/dL (7-18); Bilirubin, Total 1.2 mg/dL (0.2-1.0); CO2 21.5 mmol/L (21.0-32.0); CREATININE 1.3 mg/dL (0.55-1.02); Calcium 11.2 mg/dL (8.5-10.1); Chloride 92 mmol/L (98-107); Estimated GFR 44.24 (mL/min/1.73m2); Glucose 240 mg/dL (74-106); Lipase 18 U/L (<78); Magnesium 1.5 mg/dL (1.8-2.4); Potassium 3.8 mmol/L (3.5-5.1); Sodium 133 mmol/L (136-145); Total Protein 8.8 g/dL (6.4-8.2); Troponin I 28 ng/L (<or=51)
[2024-07-30] MEDS: DEXTROSE 5%-LACTATED RINGERS 1,000 ML 125 ML IV ×2 (14:19→20:26)
[2024-07-30] MEDS: MAGNESIUM SULFATE 1 GM/100 ML BAG IV_INF (14:20)
[2024-07-30] MEDS: Normal Saline - Diluent 50 ML VIAL IJ (14:35)
[2024-07-30] MEDS: Omnipaque 350 MG/ML 100 ML BTL 75 ML IJ (14:38)
--- NOTE | 2024-07-30 14:54 | DI.CT_ITS ---
Exam(s) CT ABDOMEN PELVIS W EXAM: CT ABDOMEN PELVIS W CLINICAL HISTORY: epigastric pain, leukocytosis. TECHNIQUE: Imaging Protocol: Axial computed tomography images with coronal and sagittal reformatted images were created and reviewed CONTRAST MATERIAL: Intravenous: Omnipaque-350 75cc Oral: None COMPARISON: CT CT ABDOMEN PELVIS W from 09/02/2020 FINDINGS: VISUALIZED LUNG BASES: No nodules nor pleural effusions evident. No lung base infiltrates. ABDOMEN: GI: There is again noted a moderate size hiatal hernia which has slightly further increased in size from 2020, presently measuring 4.6 cm AP by 4.1 cm wide by 4.3 cm craniocaudal. There is slight thickening of the GE junction. There is evidence of prior surgery in the region of the GE junction again noted. Recommend endoscopy. No evidence of small-bowel obstruction, free air, nor abscess. No ascites nor diverticulitis. Fat only containing midline umbilical hernia again noted which does not contain bowel loops. LIVER: There are no focal hepatic lesions evident. No dilated intrahepatic ducts. GALLBLADDER/BILIARY: No obvious gallbladder pathology. CBD is not dilated. PANCREAS: No evidence of pancreatic mass nor dilatation of the pancreatic duct. SPLEEN: Spleen is not enlarged. No obvious intrasplenic lesions. Splenic and portal veins are patent. ADRENALS: Right adrenal gland is unremarkable. There is thickening of the genu of the left adrenal gland measuring 1.5 x 1.2 cm, more so than previous. Consistent with a non hypodense nodule in the left adrenal gland. There is also mild hyperplasia of the lateral limb of the left adrenal gland. KIDNEYS:The left kidney is significantly atrophic, more so than 2021. There are no masses nor cysts nor calculi in the atrophic left kidney and no hydronephrosis nor hydroureter. The opposite-right kidney appears unremarkable. No calculi nor hydronephrosis nor hydroureter. No solid renal masses URINARY BLADDER: Unremarkable. ABDOMINAL AORTA: Abdominal aorta is not enlarged. LYMPH NODES:There is no retroperitoneal nor paraaortic adenopathy. ABDOMINAL WALL: Small fat only containing umbilical hernia. No inguinal hernias. GI: There is no evidence of bowel obstruction, free air, nor abscess. PELVIS: GI: No evidence of appendicitis.There is no significant sigmoid diverticular disease. LYMPH NODES: There is no intrapelvic nor inguinal adenopathy. REPRODUCTIVE: There is calcified fibroid at the level the uterine fundus. No abnormal adnexal findings nor free fluid in the pelvis. URINARY BLADDER: No calculi nor obvious masses evident OSSEOUS: No fractures. There is mild degenerative anterolisthesis L5 upon S1 related to facet arthropathy. There is no disc space narrowing at this level. The amount of listhesis is unchanged from 2020 and remains mild. Again noted is significant expansion of the sacral canal smooth erosion of both sides of the inner cortex of the canal again noted. This exhibits minimal if any significant progression compared to 2020. 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 This is also unchanged from March 2019 images. IMPRESSION: 1. Atrophy of the left kidney again noted which appears to have further progressed when compared to the images of August 2020. this atrophic left kidney does not exhibit masses nor cysts nor calculi nor hydronephrosis. The remaining opposite-right kidney remains unremarkable in appearance. 2. Evidence of previous surgery at the GE junction and there is a moderate size hiatal hernia which has slightly further increased in size from the prior CT study listed above. Recommend endoscopy. 3. There is now a nodule in left adrenal gland measuring 15 x 12 mm and there is also thickening-probable hyperplasia of the lateral limb of the left adrenal gland. The right adrenal gland remains unremarkable. 4. No evidence of appendicitis nor diverticulitis. 5. Relatively stable appearance of the previously described expansile findings in the sacral canal, again exhibiting smooth erosion of the cortex. Acute there is either related to intra sacral meningocele or large bilateral Tarlov intra sacral cysts. Report called by myself to ER provider 07/30/2024 at 3:20 p.m. RADIATION DOSE DELIVERED: 330.2mGy.cm Total DLP DATA REPOSITORY: All CT scans at this facility are submitted to the National Radiology Data Registry (NRDR) Dose Index Registry (DIR) with the [employer] (ACR). RADIATION OPTIMIZATION: All CT scans at this facility use at least one of these dose optimization techniques: automated exposure control; mA and/or kV adjustment per patient size (includes targeted exams where dose is matched to clinical indication); or iterative reconstruction.
[2024-07-30] MEDS: Lactated Ringers 500 ML IV (15:05)
--- NOTE | 2024-07-30 15:34 | W.ED.GENAD ---
Discharge Plan Discharge Details Chief Complaint: Nausea/Vomit/Diar Primary Care Provider: Unknown,Unknown ED Provider: Tanya Major Home Meds and New Rx's Prescriptions: No Action omega-3 fatty acids-fish oil 1 EACH capsule 1 ea PO DAILY calcium carbonate-vitamin D3 [Calcium 500 + D] 1 EACH tablet 1 ea PO DAILY glucosam-chond om-xhiqfg-rr ac 1 EACH capsule 1 ea PO DAILY Multi-Day Plus Minerals 1 EACH tablet 1 ea PO DAILY prochlorperazine maleate 10 mg tablet 10 mg PO Q6H PRN atorvastatin 20 mg tablet 20 mg PO DAILY famotidine 20 mg tablet 20 mg PO DAILY PRN clonazepam 0.5 mg tablet,disintegrating 1 mg PO .QD cyclobenzaprine 10 MG tablet 10 mg PO TID PRN (Reason: Muscle Spasm) Qty: 8 0RF pantoprazole 40 mg tablet,delayed release (DR/EC) 40 mg PO DAILY Patient Comments: Take 1 tablet by mouth once a day potassium chloride 10 mEq capsule, extended release 10 meq PO DAILY Patient Comments: TAKE ONE CAPSULE BY MOUTH TWICE A DAY metformin 500 mg tablet extended release 24 hr 500 mg PO DAILY Patient Comments: TAKE ONE TABLET BY MOUTH EVERY DAY WITH MEAL(S) FOR PREDIABETES bupropion HCl 150 mg tablet extended release 24 hr 150 mg PO QAM Patient Comments: TAKE ONE TABLET BY MOUTH EVERY MORNING FOR DEPRESSION / LOW MOTIVATION ondansetron 8 mg tablet,disintegrating 8 mg PO Q8H PRN Patient Comments: DISSOLVE ONE TABLET ON THE TONGUE EVERY 8 HOURS NEEDED FOR NAUSEA AND VOMITING promethazine 25 mg suppository 25 mg TN Q6H PRN Patient Comments: INSERT 1 SUPPOSITORY RECTALLY EVERY 6 HOURS NEEDED FOR MOTION SICKNESS escitalopram oxalate 20 mg tablet 20 mg PO DAILY Patient Comments: TAKE ONE TABLET BY MOUTH EVERY DAY DIRECTED HPI General Date/Time Provider Initiated Documentation: 07/30/24 13:01. HPI Narrative: 68-year-old female with gastroparesis, cyclic vomiting syndrome, hiatal hernia repair, elevated troponin, pyloric stricture, and multiple recent hospitalizations for cyclic vomiting syndrome. Presents with nausea and vomiting for the past week, normal bowel movements. Symptoms similar to previous episodes, has not taken medications due to vomiting. Vomit described as dark. No fever, chills, or headache. Discharged home on 07/11/2024 following last episode. Took Compazine suppository prior to arrival, no relief. Related Data Home Medications ?Medication ?Instructions ?Recorded ?Confirmed calcium 500 mg (as 1 ea PO DAILY 12/17/16 07/30/24 carbonate)-vitamin D3 10 mcg (400 unit) tablet (Calcium 500 + D) [id number]-sabxkzxs-hyalur 1 ea PO DAILY 12/17/16 07/30/24 ac 375 mg-300 mg-175 mg-2 mg cap multivit with minerals-iron 18 1 ea PO DAILY 12/17/16 07/30/24 mg-folic ac 400 mcg-vit K 25 mcg tablet (Multi-Day Plus Minerals) omega-3 fatty acids-fish oil 300 1 ea PO DAILY 12/17/16 07/30/24 mg-1,000 mg capsule cyclobenzaprine 10 mg tablet 10 mg PO TID PRN Muscle Spasm #8 02/19/17 07/30/24 tabs pantoprazole 40 mg tablet,delayed 40 mg PO DAILY 09/02/20 07/30/24 release atorvastatin 20 mg tablet 20 mg PO DAILY 06/16/22 07/30/24 famotidine 20 mg tablet 20 mg PO DAILY PRN 06/16/22 07/30/24 prochlorperazine maleate 10 mg 10 mg PO Q6H PRN 06/16/22 07/30/24 tablet clonazepam 0.5 mg disintegrating 1 mg PO .QD 11/13/22 07/30/24 tablet bupropion HCl 150 mg 24 hr tablet, 150 mg PO QAM 07/30/24 07/30/24 extended release escitalopram oxalate 20 mg tablet 20 mg PO DAILY 07/30/24 07/30/24 metformin 500 mg tablet,extended 500 mg PO DAILY 07/30/24 07/30/24 release 24 hr ondansetron 8 mg disintegrating 8 mg PO Q8H PRN 07/30/24 07/30/24 tablet potassium chloride 10 mEq 10 meq PO DAILY 07/30/24 07/30/24 capsule,extended release promethazine 25 mg rectal 25 mg TN Q6H PRN 07/30/24 07/30/24 suppository Previous Rx's ?Medication ?Instructions ?Recorded cyclobenzaprine 10 mg tablet 10 mg PO TID PRN Muscle Spasm #8 02/19/17 tabs Allergies Allergy/AdvReac Type Severity Reaction Status Date / Time MICHAEL Inhibitors Allergy Severe to Verified 12/17/22 15:05 lisinopril lisinopril Allergy Severe Verified 12/17/22 15:05 trazodone AdvReac Mild WIRED Verified 12/17/22 15:05 General Stated Complaint: Nausea/Vomit/Diar EBONY: 3 Exam Narrative Exam Narrative: General Appearance: Pale. Vital signs: Blood pressure initially 187/135, reduced to 190/100 after fluids and medication. HEENT: Oropharynx patent, uvula midline. Respiratory: Within normal limits. Gastrointestinal: Diffuse abdominal tenderness without rebound or guarding. Back, Musculoskeletal: No CVA tenderness. Extremities: No peripheral edema. Skin: Warm and dry, no rash. Neurological: Answering questions appropriately. No meningismus. Course Vital Signs Vital signs: Vital Signs Temperature 37.1 C 07/30/24 12:57 Pulse 129 H 07/30/24 12:57 Respiratory Rate 18 07/30/24 12:57 Blood Pressure 187/135 H 07/30/24 12:57 Pulse Oximetry 100 07/30/24 12:57 Temperature 37.1 C 07/30/24 13:44 Temperature Source Oral 07/30/24 12:57 Pulse 99 H 07/30/24 14:20 Pulse 99 H 07/30/24 14:20 Respiratory Rate 16 07/30/24 14:20 Blood Pressure 172/125 H 07/30/24 14:16 Blood Pressure Mean 139 07/30/24 14:16 Blood Pressure Position Sitting 07/30/24 12:57 Pulse Oximetry 100 07/30/24 14:20 Oxygen Delivery Method Room Air 07/30/24 13:44 Oxygen Flow Rate 0 07/30/24 12:57 Pain Level 7 07/30/24 12:57 Lab/Test Results Lab/Test Results: Laboratory Tests Range/Units 07/30/24 07/30/24 13:29 13:29 WBC (4.4-10.8) 10^3/uL 17.67 H RBC (3.93-5.22) 10^6/uL 5.28 H Hgb (11.2-15.7) g/dL 16.1 H Hct (36.0-46.0) % 47.5 H MCV (80-95) fL 90 MCH (27.0-33.0) pg 30.5 MCHC (32.0-36.0) % 33.9 RDW (11.7-14.6) % 12.1 Plt Count (130-400) 10^3/uL 401 H MPV (8.0-11.0) fL 9.4 Immature Gran % % 0.8 Neutrophils % % 85.3 Lymphocytes % % 8.3 Monocytes % % 5.3 Eosinophils % % 0.1 Basophils % % 0.2 Nucleated RBC % (0.0-0.3) % 0.0 Absolute Neutrophils (1.2-6.7) 10^3/uL 15.07 H Absolute Lymphocytes (1.2-3.4) 10^3/uL 1.47 Absolute Monocytes (0.1-0.8) 10^3/uL 0.94 H Absolute Eosinophils (0.0-0.7) 10^3/uL 0.02 Absolute Basophils (0.0-0.2) 10^3/uL 0.04 Sodium (136-145) mmol/L 133 L Potassium (3.5-5.1) mmol/L 3.8 Chloride (98-107) mmol/L 92 L Carbon Dioxide (21.0-32.0) mmol/L 21.5 Anion Gap (3-11) mmol/L 19.5 H BUN (7-18) mg/dL 12 Creatinine (0.55-1.02) mg/dL 1.3 H Est GFR (CKD-EPI 2020) (mL/min/1.73m2) 44.24 Glucose (74-106) mg/dL 240 H Calcium (8.5-10.1) mg/dL 11.2 H Magnesium (1.8-2.4) mg/dL 1.5 L Cancelled Total Bilirubin (0.2-1.0) mg/dL 1.2 H AST (15-37) U/L 14 L ALT (14-59) U/L 19 Alkaline Phosphatase (46-116) U/L 124 H Troponin I (<or=51) ng/L 28 Total Protein (6.4-8.2) g/dL 8.8 H Albumin (3.4-5.0) g/dL 4.7 Lipase (<78) U/L 18 Medical Decision Making Creatinine baseline 1.3. Gap 19.5 consistent with dehydration. Sodium 133. Bilirubin 1.2, slightly elevated. Mild leukocytosis. CT abdomen and pelvis: no acute abnormality. Sacral cyst which has previously been evaluated adrenal adenoma adenoma which will need to be evaluated in the outpatient setting, hiatal hernia status post Chrystal follow-up location atrophic kidney I discussed with Dr. Horton Initial Assessment: 68-year-old female with history of gastroparesis, cyclic vomiting syndrome, hiatal hernia repair, elevated troponin, pyloric stricture, multiple recent hospitalizations secondary to cyclic vomiting syndrome. Presents with nausea, vomiting for the past week, normal bowel movements. Denies fever or chills. Vomit is dark. Pallor noted. Diffuse abdominal tenderness without rebound or guarding. No CVA tenderness. No peripheral edema. Answering questions appropriately. No meningismus. Denies headache. Differential Diagnosis: - Cyclic vomiting syndrome: Consistent with history. Has not taken medications due to vomiting. Plan: Continue observation and attempt oral challenge. - Hypertensive emergency: Blood pressure initially 187/135, reduced to 190/100 after fluids and medication. Patient states blood pressure typically elevated during flares. Plan: Monitor blood pressure. - Dehydration: Gap 19.5 consistent with dehydration. Sodium 133. Plan: Receiving 2 L of LR and D5 mag 1.5, given 1 g mag IV. - Mild leukocytosis: Consistent with prior episodes. Plan: Monitor. ED Course: - Blood pressure initially 187/135, reduced to 190/100 after fluids and medication. - Creatinine baseline 1.3. - Gap 19.5 consistent with dehydration. - Sodium 133. - Receiving 2 L of LR and D5 mag 1.5, given 1 g mag IV. - Bilirubin 1.2, slightly elevated. - Mild leukocytosis. - CT abdomen and pelvis: no acute abnormality. Read by me. - Discussed with Dr. Khan. - Known atrophic kidney, hiatal hernia despite Chrystal fundoplication. - Took Compazine suppository prior to arrival, no relief. - Given Zofran and Benadryl here. - Due to multiple SSRIs, no additional Reglan. - Phenergan IV not available. - Received Benadryl 12.5 mg and Compazine 5 mg. - Ordered Zofran 4 mg. - QTc 376 on EKG, ordered 1 mg Haldol. - Droperidol held due to higher QTc prolonging effect. - Continue to observe and attempt oral challenge. Final Assessment: Patient with cyclic vomiting syndrome presenting with nausea and vomiting. Blood pressure reduced after fluids and medication. Dehydration noted and treated. Mild leukocytosis consistent with prior episodes. CT abdomen and pelvis shows no acute abnormality. Medications adjusted due to multiple SSRIs. Continue observation and attempt oral challenge. Clinical Impression: - Cyclic vomiting syndrome - Hypertensive emergency - Dehydration - Mild leukocytosis Disposition: - Follow-Up: Follow up with PCP regarding adrenal nodule. MDM Components Evaluation: - Number of Differential Diagnoses or Management Options: Cyclic vomiting syndrome, hypertensive emergency, dehydration, mild leukocytosis. - Amount and Complexity of Data Reviewed: Blood pressure readings, creatinine levels, sodium levels, bilirubin levels, CT abdomen and pelvis results, EKG results. - Risk of Complication and Morbidity or Mortality: Elevated blood pressure, dehydration, potential complications from cyclic vomiting syndrome. PFSH All Active Problems (Updated 12/17/22 @ 15:24 by Lien Lo DPM) Hammertoe of left foot (Acute) Hallux varus (acquired), left foot (Acute) Metatarsalgia of left foot (Acute) Onychomycosis (Acute) Nicotine dependence, unspecified, uncomplicated (Acute) .5 ppd Decreased libido (Acute) Insomnia, unspecified (Acute) Nausea & vomiting (Acute) Hiatal hernia (Chronic) GERD (gastroesophageal reflux disease) (Chronic) Hyperlipidemia (Acute) Anxiety (Chronic) Iron deficiency anemia, unspecified (Acute) Medical History Essential (primary) hypertension 05/06/22 moved to , bp wnl on no meds Abdominal pain, vomiting, and diarrhea Acute dehydration Nausea alone Constipation Emesis, persistent Hydronephrosis left CHRISTIANO (acute kidney injury) Neck pain Benign tumor of pituitary gland Chronic vomiting History of HPV infection Grief reaction Depression Shortness of breath Joint pain Low back pain History of hepatitis History of Lyme disease PTSD (post-traumatic stress disorder) Surgical History EGD - MAC (01/13/17) Social History Smoking/Tobacco Use Status: Current every day Tobacco Type: cigarettes Years smoked: 6 Quit status: has quit before Smoking risk assessment performed?: Yes Alcohol Intake: current Alcohol Intake frequency: holidays/special occasions only Alcohol type: beer Drug use: Occasionally Substance use type: marijuana Do you feel safe at home: Yes Do you feel safe in your relationship?: Yes
[2024-07-30] MEDS: Haloperidol 5 MG/ML VIAL 1 MG IV (15:37)
--- NOTE | 2024-07-30 15:45 | ED.PROG_ITS ---
Date of service: 07/30/24 Time of Service: 15:45 Medical Decision Making In brief, this is a 68-year-old female patient with a history of GERD, cyclic vomiting, and hiatal hernia presenting for 5 days of nausea with vomiting dehydration. At the time that I took over care of this patient from the previous provider, this patient has had a full laboratory workup notable for hypomagnesemia (repleted) as well as a leukocytosis and some evidence of dehydration with an elevated anion gap, calcium. She had an EKG for QTc evaluation, and has received several medications for management of her symptoms, including Compazine, Benadryl, Zofran, and Haldol. Her disposition was pending urinalysis and p.o. challenge. She recently had an upper endoscopy performed at [facility], records reviewed by the prior provider with no acutely actionable findings. CT abdomen pelvis performed today with no findings to explain the patient's ongoing symptoms. She has been rehydrated with 2 L of isotonic fluids. - On reassessment, the patient reports that she continues to feel quite unwell and very fatigued, was only able to tolerate a few small sips of water, and I am concerned that this patient will not be able to maintain her hydration in the outpatient environment. For this reason, I reached out to the hospitalist who is graciously accepted this patient for admission for her ongoing nausea with vomiting and evidence of dehydration. She was hemodynamically appropriate while under my care and transferred to the floor without incident. Tiffanie Galeas MD Medical Records Medical records reviewed: Yes I reviewed the patient's medical records. Lab Data Lab results reviewed: Yes I reviewed the patient's lab results. Discharge Plan Disposition Patient Disposition: Admit to [facility] Condition: Stable Discharge Details Clinical Impression: Nausea & vomiting, GERD (gastroesophageal reflux disease), Hypomagnesemia Primary Care Provider: Unknown,Unknown ED Provider: Tiffanie Galeas Home Meds and New Rx's Prescriptions: No Action omega-3 fatty acids-fish oil 1 EACH capsule 1 ea PO DAILY calcium carbonate-vitamin D3 [Calcium 500 + D] 1 EACH tablet 1 ea PO DAILY glucosam-chond kh-caphem-yu ac 1 EACH capsule 1 ea PO DAILY Multi-Day Plus Minerals 1 EACH tablet 1 ea PO DAILY prochlorperazine maleate 10 mg tablet 10 mg PO Q6H PRN atorvastatin 20 mg tablet 20 mg PO DAILY famotidine 20 mg tablet 20 mg PO DAILY PRN clonazepam 0.5 mg tablet,disintegrating 1 mg PO .QD cyclobenzaprine 10 MG tablet 10 mg PO TID PRN (Reason: Muscle Spasm) Qty: 8 0RF pantoprazole 40 mg tablet,delayed release (DR/EC) 40 mg PO DAILY Patient Comments: Take 1 tablet by mouth once a day potassium chloride 10 mEq capsule, extended release 10 meq PO DAILY Patient Comments: TAKE ONE CAPSULE BY MOUTH TWICE A DAY metformin 500 mg tablet extended release 24 hr 500 mg PO DAILY Patient Comments: TAKE ONE TABLET BY MOUTH EVERY DAY WITH MEAL(S) FOR PREDIABETES bupropion HCl 150 mg tablet extended release 24 hr 150 mg PO QAM Patient Comments: TAKE ONE TABLET BY MOUTH EVERY MORNING FOR DEPRESSION / LOW MOTIVATION ondansetron 8 mg tablet,disintegrating 8 mg PO Q8H PRN Patient Comments: DISSOLVE ONE TABLET ON THE TONGUE EVERY 8 HOURS NEEDED FOR NAUSEA AND VOMITING promethazine 25 mg suppository 25 mg MN Q6H PRN Patient Comments: INSERT 1 SUPPOSITORY RECTALLY EVERY 6 HOURS NEEDED FOR MOTION SICKNESS escitalopram oxalate 20 mg tablet 20 mg PO DAILY Patient Comments: TAKE ONE TABLET BY MOUTH EVERY DAY DIRECTED
[2024-07-30 15:54] LABS: Bilirubin Negative (Negative); Blood Trace-intact (Negative); Clarity Clear (Clear); Glucose Negative (Negative); Ketones 40 mg/dL (Negative); Leukocyte Esterase Negative (Negative); Nitrite Negative (Negative); Specific Gravity 1.015 (1.005-1.025); Urobilinogen 0.2 mg/dL (Up to 0.2); pH 8.5 (5-8)
[2024-07-30 15:58] LABS: Bacteria Negative HPF (Negative); C & S Indicated? No; Casts Negative LPF (Negative); Crystals Negative HPF (Negative); Epithelial Cells Negative HPF (Negative); Mucus Negative (Negative); RBC 0-2 HPF (0-2); WBC Negative HPF (0-5)
--- NOTE | 2024-07-30 17:52 | W.PM.HP.N ---
Date of service: 07/30/24 Time of Service: 17:52 Assessment and Plan Assessment and plan (1) Intractable nausea and vomiting: Status: Acute Assessment and plan: -Likely secondary to known history of cyclical vomiting syndrome - May also be contributing component from hiatal hernia though EGD done at [facility] earlier in the week apparently did not show-it to be significant though unsure if plans were for discussion for surgical repair - Patient failed Compazine, Benadryl Zofran and Haldol in the emergency department - Will continue as needed Zofran as well as as needed IV Ativan for nausea and vomiting - Clear liquid diet advance as tolerated (2) Hypomagnesemia: Status: Acute Assessment and plan: - Mildly low at 1.5 in the emergency department status post repletion - Follow-up a.m. magnesium (3) Hiatal hernia: Status: Chronic Assessment and plan: - May be contributing component in tractable nausea and vomiting as noted above (4) Non-insulin dependent type 2 diabetes mellitus: Status: Acute Assessment and plan: - Hold home metformin while patient having difficulty tolerating p.o. intake History of Present Illness History of Present Illness Chief Complaint: Nausea and vomiting Narrative: 68-year-old female with a past medical history of hyperlipidemia, NIDDM, cyclical vomiting syndrome and known hiatal hernia presents to the emergency department with nausea and vomiting over the last week. Patient states she has had similar episodes in the past due to her cyclical vomiting and she has also not been able to take her meds during this time. She also describes her vomit as dark but not necessarily coffee-ground or with blood. She denies any headache, lightheadedness, dizziness, chest pain, diarrhea or constipation. In the emergency department the patient was noted to being uncomfortable due to nausea but did have otherwise normal vital signs, CBC and CMP though was noted to have some mild hypomagnesemia. She had a CT abdomen pelvis that showed known hiatal hernia it was also discovered that patient had a recent upper endoscopy at [facility] did not show any acute findings other than her known hiatal hernia. While in the emergency department the patient had Compazine, Benadryl, Zofran and Haldol without significant improvement as she had very quickly failed p.o. fluid challenge. At which time emergency room provider paged hospitalist for admission for patient with intractable nausea and vomiting. Review of Systems All systems reviewed & are unremarkable except as noted in HPI and below PFSH All Active Problems (Updated 07/30/24 @ 18:30 by AMILCAR NESS) Non-insulin dependent type 2 diabetes mellitus (Acute) Intractable nausea and vomiting (Acute) Hypomagnesemia (Acute) Hammertoe of left foot (Acute) Hallux varus (acquired), left foot (Acute) Metatarsalgia of left foot (Acute) Onychomycosis (Acute) Nicotine dependence, unspecified, uncomplicated (Acute) .5 ppd Decreased libido (Acute) Insomnia, unspecified (Acute) Nausea & vomiting (Acute) Hiatal hernia (Chronic) GERD (gastroesophageal reflux disease) (Chronic) Hyperlipidemia (Acute) Anxiety (Chronic) Iron deficiency anemia, unspecified (Acute) Medical History Essential (primary) hypertension 05/06/22 moved to , bp wnl on no meds Abdominal pain, vomiting, and diarrhea Acute dehydration Nausea alone Constipation Emesis, persistent Hydronephrosis left CHRISTIANO (acute kidney injury) Neck pain Benign tumor of pituitary gland Chronic vomiting History of HPV infection Grief reaction Depression Shortness of breath Joint pain Low back pain History of hepatitis History of Lyme disease PTSD (post-traumatic stress disorder) Surgical History EGD - MAC (01/13/17) Social History Smoking/Tobacco Use Status: Current every day Tobacco Type: cigarettes Years smoked: 6 Quit status: has quit before Smoking risk assessment performed?: Yes Alcohol Intake: current Alcohol Intake frequency: holidays/special occasions only Alcohol type: beer Drug use: Occasionally Substance use type: marijuana Do you feel safe at home: Yes Do you feel safe in your relationship?: Yes Meds Allergies and Home Medications Allergies Allergy/AdvReac Type Severity Reaction Status Date / Time MICHAEL Inhibitors Allergy Severe to Verified 12/17/22 15:05 lisinopril lisinopril Allergy Severe Verified 12/17/22 15:05 trazodone AdvReac Mild WIRED Verified 12/17/22 15:05 Home Medications ?Medication ?Instructions ?Recorded ?Confirmed ?Type calcium 500 mg (as 1 ea PO DAILY 12/17/16 07/30/24 History carbonate)-vitamin D3 10 mcg (400 unit) tablet (Calcium 500 + D) pyhthhlfpw-fdlmbmacov-hntwntnh-hyalur 1 ea PO DAILY 12/17/16 07/30/24 History ac 375 mg-300 mg-175 mg-2 mg cap multivit with minerals-iron 18 1 ea PO DAILY 12/17/16 07/30/24 History mg-folic ac 400 mcg-vit K 25 mcg tablet (Multi-Day Plus Minerals) omega-3 fatty acids-fish oil 300 1 ea PO DAILY 12/17/16 07/30/24 History mg-1,000 mg capsule cyclobenzaprine 10 mg tablet 10 mg PO TID PRN Muscle Spasm #8 02/19/17 07/30/24 Rx tabs pantoprazole 40 mg tablet,delayed 40 mg PO DAILY 09/02/20 07/30/24 History release atorvastatin 20 mg tablet 20 mg PO DAILY 06/16/22 07/30/24 History famotidine 20 mg tablet 20 mg PO DAILY PRN 06/16/22 07/30/24 History prochlorperazine maleate 10 mg 10 mg PO Q6H PRN 06/16/22 07/30/24 History tablet clonazepam 0.5 mg disintegrating 1 mg PO .QD 11/13/22 07/30/24 History tablet bupropion HCl 150 mg 24 hr tablet, 150 mg PO QAM 07/30/24 07/30/24 History extended release escitalopram oxalate 20 mg tablet 20 mg PO DAILY 07/30/24 07/30/24 History metformin 500 mg tablet,extended 500 mg PO DAILY 07/30/24 07/30/24 History release 24 hr ondansetron 8 mg disintegrating 8 mg PO Q8H PRN 07/30/24 07/30/24 History tablet potassium chloride 10 mEq 10 meq PO DAILY 07/30/24 07/30/24 History capsule,extended release promethazine 25 mg rectal 25 mg SD Q6H PRN 07/30/24 07/30/24 History suppository Exam Narrative Exam Narrative: Fatigued appearing older female laying in bed resting in no acute distress, ANO x 4, heart regular rhythm, lungs clear to auscultation bilaterally, abdomen with mild diffuse tenderness to palpation without rebound or guarding Results Labs 07/30/24 13:29 07/30/24 13:29 Labs: Laboratory Results - last 24 hr 07/30/24 07/30/24 07/30/24 13:29 13:29 15:42 WBC 17.67 H RBC 5.28 H Hgb 16.1 H Hct 47.5 H MCV 90 MCH 30.5 MCHC 33.9 RDW 12.1 Plt Count 401 H MPV 9.4 Immature Gran % 0.8 Neutrophils % 85.3 Lymphocytes % 8.3 Monocytes % 5.3 Eosinophils % 0.1 Basophils % 0.2 Nucleated RBC % 0.0 Absolute Neutrophils 15.07 H Absolute Lymphocytes 1.47 Absolute Monocytes 0.94 H Absolute Eosinophils 0.02 Absolute Basophils 0.04 Sodium 133 L Potassium 3.8 Chloride 92 L Carbon Dioxide 21.5 Anion Gap 19.5 H BUN 12 Creatinine 1.3 H Est GFR (CKD-EPI 2020) 44.24 Glucose 240 H Calcium 11.2 H Magnesium 1.5 L Cancelled Total Bilirubin 1.2 H AST 14 L ALT 19 Alkaline Phosphatase 124 H Troponin I 28 Total Protein 8.8 H Albumin 4.7 Lipase 18 Urine Color Yellow Urine Clarity Clear Urine pH 8.5 H Ur Specific [place] 1.015 Urine Protein >=300 H Urine Ketones 40 H Urine Blood Trace-intact H Urine Nitrite Negative Urine Bilirubin Negative Urine Urobilinogen 0.2 Ur Leukocyte Esterase Negative Urine RBC 0-2 Urine WBC Negative Ur Epithelial Cells Negative Urine Crystals Negative Urine Bacteria Negative Urine Casts Negative Urine Mucus Negative Ur Culture Indicated? No Urine Glucose Negative Last Vital Signs Temp 98.8 F 07/30/24 13:44 Pulse 86 07/30/24 16:00 Resp 19 07/30/24 16:00 BP 180/108 H 07/30/24 15:16 Pulse Ox 95 07/30/24 16:00 Time Spent Time spent with Patient: >75 minutes Time was spent: preparing to see the patient(eg.review tests), obtaining and/or reviewing separately otained hiistory, ordering medications,tests, procedures, referring, communicating with other health animal caretaker supervisor, indepentently interpreting results, counseling the patient and care coordination
[2024-07-30] MEDS: LORazepam 20 MG/10 ML VIAL IVP (18:11)
--- NOTE | 2024-07-30 18:38 | W.PC.ACHO ---
Registration Status: ADM IN Primary Language: Preferred Language: Nepali ED Information & Data Chief Complaint Nausea/Vomit/Diar 07/30/24 15:40 Other Complaint GI Bleed 07/30/24 12:57 Triage Note Reports N/V for 1 week. Hx 07/30/24 12:57 of cyclic vomiting. LBM Thursday, diarrhea. Reports 08/25 epigastric pain, intermittent. Unable to keep meds down, has not taken meds since thursday. Vomited dark brown emesis all week. Medical / Surgical History (Last Reviewed 12/17/22 @ 15:21 by Lien Lo DPM) Essential (primary) hypertension Abdominal pain, vomiting, and diarrhea Acute dehydration Nausea alone Constipation Emesis, persistent Hydronephrosis CHRISTIANO (acute kidney injury) Neck pain Benign tumor of pituitary gland Chronic vomiting History of HPV infection Grief reaction Depression Shortness of breath Joint pain Low back pain History of hepatitis History of Lyme disease PTSD (post-traumatic stress disorder) (Last Reviewed 12/17/22 @ 15:21 by Lien Lo DPM) EGD - MAC (01/13/17) Most Recent Vital Signs Temperature 37.1 C 07/30/24 13:44 Temperature Source Oral 07/30/24 12:57 Pulse 101 H 07/30/24 18:26 Pulse 97 H 07/30/24 16:20 Respiratory Rate 31 H 07/30/24 16:20 Blood Pressure 178/124 H 07/30/24 18:26 Blood Pressure Mean 142 07/30/24 18:26 Blood Pressure Position Sitting 07/30/24 12:57 Pulse Oximetry 92 07/30/24 16:50 Oxygen Delivery Method Room Air 07/30/24 13:44 Oxygen Flow Rate 0 07/30/24 12:57 Pain Level 7 07/30/24 18:13 Allergies MICHAEL Inhibitors Allergy (Severe, Verified 12/17/22 15:05) to lisinopril lisinopril Allergy (Severe, Verified 12/17/22 15:05) trazodone Adverse Reaction (Mild, Verified 12/17/22 15:05) WIRED Active Medications Generic Name Dose Route Start Last Admin Trade Name Freq PRN Reason Stop Dose Admin Dextrose/Lactated Ringer's 1,000 mls @ 125 mls/hr 07/30/24 14:00 07/30/24 14:19 Dextrose 5%-Lr IV 125 mls/hr INFUSION JOAO Administration Iohexol 75 ml 07/30/24 14:45 07/30/24 14:38 Omnipaque 350 Mg/Ml 100 Ml Btl IJ 08/29/24 23:59 75 ml DIRECTED JOAO Administration Sodium Chloride 50 ml 07/30/24 14:45 07/30/24 14:35 Normal Saline - Diluent 50 Ml Vial IJ 50 ml .FOR DI USE JOAO Administration IV IV Catheter Type [Left Saline Lock Antecubital] IV Catheter Gauge [Left 18 Antecubital] Diet Orders Category Date Time Status Regular/Normal [DIET] Nutrition 07/31/24 Breakfast Ordered Diagnostics 07/30/24 07/30/24 07/30/24 Range/Units 15:42 13:29 13:29 WBC 17.67 H (4.4-10.8) 10^3/uL RBC 5.28 H (3.93-5.22) 10^6/uL Hgb 16.1 H (11.2-15.7) g/dL Hct 47.5 H (36.0-46.0) % MCV 90 (80-95) fL MCH 30.5 (27.0-33.0) pg MCHC 33.9 (32.0-36.0) % RDW 12.1 (11.7-14.6) % Plt Count 401 H (130-400) 10^3/uL MPV 9.4 (8.0-11.0) fL Immature Gran % 0.8 % Neutrophils % 85.3 % Lymphocytes % 8.3 % Monocytes % 5.3 % Eosinophils % 0.1 % Basophils % 0.2 % Nucleated RBC % 0.0 (0.0-0.3) % Absolute Neutrophils 15.07 H (1.2-6.7) 10^3/uL Absolute Lymphocytes 1.47 (1.2-3.4) 10^3/uL Absolute Monocytes 0.94 H (0.1-0.8) 10^3/uL Absolute Eosinophils 0.02 (0.0-0.7) 10^3/uL Absolute Basophils 0.04 (0.0-0.2) 10^3/uL Sodium 133 L (136-145) mmol/L Potassium 3.8 (3.5-5.1) mmol/L Chloride 92 L (98-107) mmol/L Carbon Dioxide 21.5 (21.0-32.0) mmol/L Anion Gap 19.5 H (3-11) mmol/L BUN 12 (7-18) mg/dL Creatinine 1.3 H (0.55-1.02) mg/dL Est GFR (CKD-EPI 2020) 44.24 (mL/min/1.73m2) Glucose 240 H (74-106) mg/dL Calcium 11.2 H (8.5-10.1) mg/dL Magnesium Cancelled 1.5 L (1.8-2.4) mg/dL Total Bilirubin 1.2 H (0.2-1.0) mg/dL AST 14 L (15-37) U/L ALT 19 (14-59) U/L Alkaline Phosphatase 124 H (46-116) U/L Troponin I 28 (<or=51) ng/L Total Protein 8.8 H (6.4-8.2) g/dL Albumin 4.7 (3.4-5.0) g/dL Lipase 18 (<78) U/L Urine Color Yellow (Yellow) Urine Clarity Clear (Clear) Urine pH 8.5 H (5-8) Ur Specific [place] 1.015 (1.005-1.025) Urine Protein >=300 H (Neg-Trace) mg/dL Urine Ketones 40 H (Negative) mg/dL Urine Blood Trace-intact H (Negative) Urine Nitrite Negative (Negative) Urine Bilirubin Negative (Negative) Urine Urobilinogen 0.2 (Up to 0.2) mg/dL Ur Leukocyte Esterase Negative (Negative) Urine RBC 0-2 (0-2) HPF Urine WBC Negative (0-5) HPF Ur Epithelial Cells Negative (Negative) HPF Urine Crystals Negative (Negative) HPF Urine Bacteria Negative (Negative) HPF Urine Casts Negative (Negative) LPF Urine Mucus Negative (Negative) Ur Culture Indicated? No Urine Glucose Negative (Negative) mg/dL Intake and Output - 24 Hour Total 07/30/24 12:40 thru 07/30/24 16:30 Intake Total 1600 Output Total 550 Balance 1050 Weight 63.503 kg Intake: IV 1600 Output: Urine 450 Emesis 100 Other: Emesis Description Retching Falls Risk Assessment History of Falls No History 07/30/24 13:44 Contributing Factors Unstable,Impairments 07/30/24 13:44 Ambulatory Aids Independent 07/30/24 13:44 Tubes/Lines With any additional score 07/30/24 13:44 Gait Evaluation W/any additional score 07/30/24 13:44 Cognition No cognitive impairment 07/30/24 13:44 Fall Total Score 46 07/30/24 13:44 Level of Risk Moderate Risk 07/30/24 13:44 Problems (Last Reviewed 12/17/22 @ 15:21 by Lien Lo DPM) Non-insulin dependent type 2 diabetes mellitus (Acute) Intractable nausea and vomiting (Acute) Hypomagnesemia (Acute) Hiatal hernia (Chronic) v v v v v v v v v Sending and/or Receiving Nurses: Please use comment section below to note any information pertinent to the patient hand-off not included above. Information / Comments: Report received from: Pt with intractable vomiting x 1 week. Pt Also reports intermittent diarrhea. BP has been elevated since arrival to ED. ED nurse to administer IV ativan to help decrease BP. Thought to be from anxiety and constant vomiting. Pt brought to floor and settled in room. Pts BP checked manually and was 178/24 with a heart rate of 101. Provider called to inform him of persistent elevated BP and he advised pt will be ok she is vomiting and anxious and it will come down
[2024-07-30] MEDS: Normal Saline Flush 10 ML SYR IVP ×2 (20:27→21:40)
[2024-07-30] MEDS: ACETAMINOPHEN 1,000 MG/100 ML BAG 400 MG IVPB (21:39)
[2024-07-31 02:11] VITALS: BP 168/105; PULSE 98; TEMP 37.4; O2SAT 99
[2024-07-31] MEDS: LORazepam 20 MG/10 ML VIAL IVP ×4 (02:15→19:53)
[2024-07-31] MEDS: ACETAMINOPHEN 1,000 MG/100 ML BAG 400 MG IVPB ×2 (05:34→15:55)
[2024-07-31] MEDS: DEXTROSE 5%-LACTATED RINGERS 1,000 ML 125 ML IV ×2 (06:01→14:40)
[2024-07-31 06:09] LABS: HCT 38.6 % (36.0-46.0); HGB 13.2 g/dL (11.2-15.7); MCH 30.8 pg (27.0-33.0); MCHC 34.2 % (32.0-36.0); MCV 90 fL (80-95); MPV 9.3 fL (8.0-11.0); Platelet Count 323 10^3/uL (130-400); RBC 4.28 10^6/uL (3.93-5.22); RDW 12.5 % (11.7-14.6); RDW-SD 40.9 fL; WBC 13.64 10^3/uL (4.4-10.8)
[2024-07-31 06:18] LABS: BUN 10 mg/dL (7-18); CREATININE 1.2 mg/dL (0.55-1.02); Calcium 10.1 mg/dL (8.5-10.1); Chloride 98 mmol/L (98-107); Glucose 163 mg/dL (74-106); Magnesium 1.9 mg/dL (1.8-2.4); Potassium 3.2 mmol/L (3.5-5.1); Sodium 135 mmol/L (136-145)
[2024-07-31 07:33] VITALS: BP 147/92; PULSE 83; RESP 17; TEMP 36.5; O2SAT 98
[2024-07-31] MEDS: Cyclobenzaprine 10 MG TAB PO (08:18)
[2024-07-31] MEDS: Pantoprazole 40 MG VIAL IVP ×2 (08:21→19:45)
[2024-07-31] MEDS: Normal Saline Flush 10 ML SYR IVP ×3 (08:21→19:45)
--- NOTE | 2024-07-31 09:17 | INITIAL_ITS ---
Date of service: 07/31/24 Time of Service: 09:47 Care Management Initial Assmt Initial Assessment Reason for Hospitalization: Intractable nausea and vomiting Functional Status/Living Situation Patient Presentation: Manasa Davies, was lying in bed, when CM arrived. She presented to the ED for 5 days of nausea with vomiting dehydration. Keke is living alone, in her single family home, in [place]. Keke states, she has 2-3 steps to enter the front of the home, but to access a bathroom, there is a flight of stairs going up, and to access the washer and dryer, a flight of stair going down; Per Keke, this becomes challenging when she is feeling sick, in times like now. CM requested a PT consult. Per Keke, she is unsure of the condition of her house, as she has not been able to keep up with cleaning, since the nausea and vomiting began. Keke states, her previous community supports included: [employer], DOC, and [employer]; Her current supports are: [employer] (case management coordinator - Shanae Montanez), and Ginette Foss (Partition Setter at [facility] [employer], 1928–1983). With patient permission, CM sent a referral to [email or web address], for an increase in community supports. At this time, Keke is still driving, and states she is otherwise independent in her home. 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 CM will continue to follow. Town of Residence: [place] / [place] Resides with: Alone Significant Other/Family: Out of area (Children/grandchildren in [place]) Natural Supports: Her son who lives in [place] is a good emotional support, states she has no local support people. Employment Status: Retired Instrumental Activities of Daily Living (ADLs): Independent Activities/Hobbies/SocialSupport: Spending time with her dog, cat, and bird Medications Medication Management: No Issues/Barriers identified ([facility] delivery ) Physical Functioning/Mobility Assistive Device: Cane - reports she only uses this when she is feeling sick Advance Directives Advance Directives: Do you have an Advance Directive: Y , 19:42 AD On File at [facility]: Y 02/11/17, 19:42 Date Asked 05/18/24 05/18/24, 14:12 AD Date Reviewed 11/25/23 11/25/23, 15:24 COLST On File at [facility] COLST Date Scanned Code Status Resuscitation Status Full Code Portal Pt does not currently have a portal and education provided: Yes Insurance Coverage/Financial Issues Insurance: BC/BS [facility] - [id number] Medicaid [facility] - [id number] Financial Issues: States she gets by, but does not have much money left over. Care Team Visit Care Team Role Provider Type Vikas Steiner MD MD [facility] STAFF PHYSICIAN Unknown Unknown Primary Care Provider STAFF PHYSICIAN Tiffanie Galeas MD Emergency Provider [facility] STAFF PHYSICIAN Manuelito Liz MD Admit Provider [facility] STAFF PHYSICIAN Attending Provider Discharge Potential Discharge Needs: PCP F/U Appt Anticipated Barriers to Discharge: Medical Status Patient/Family Education Needs: Review discharge instructions, discuss Ask Me Three Transportation: Private vehicle Plan: Anticipate, Manasa will be discharged home, once medically ready. She will follow up with her community providers, [facility] and her discharge plan of care. Keke will transport via private vehicle by a friend. CM will continue to follow. Social Determinants of Health Screening Social Determinants of health last assessed in clinic: 07/31/24 Will the Patient Participate in the Screening?: Yes Do you worry about having a steady place to live?: no Problems where you live: no known problems In the past 12 months, have you had to go without electric, gas, oil or water in your home?: no 1. Within the past 12 months, we worried whether our food would run out before we got money to buy more.: Never true 2. Within the past 12 months, the food we bought just didn't last and we didn't have money to get more.: Never true Has lack of transportation kept you from medical appointments or from doing things needed for daily living?: no Has anyone in your life made you feel unsafe or unsupported?: no How hard is it for you to pay for the very basics like food, housing, medical care, and heating? Would you say it is:: Not hard at all Do you want help finding or keeping work or a job?: I do not need or want help If for any reason you need help with day-to-day activities such as bathing, preparing meals, shopping, managing finances, etc., do you get the help you need?: I don?t need any help How often do you feel lonely or isolated from those around you?: Never Do you speak a language other than Israeli at home?: No Does the patient want assistance with any of the above?: No PFSH All Active Problems (Updated 07/30/24 @ 18:30 by AMILCAR NESS) Non-insulin dependent type 2 diabetes mellitus (Acute) Intractable nausea and vomiting (Acute) Hypomagnesemia (Acute) Hammertoe of left foot (Acute) Hallux varus (acquired), left foot (Acute) Metatarsalgia of left foot (Acute) Onychomycosis (Acute) Nicotine dependence, unspecified, uncomplicated (Acute) .5 ppd Decreased libido (Acute) Insomnia, unspecified (Acute) Nausea & vomiting (Acute) Hiatal hernia (Chronic) GERD (gastroesophageal reflux disease) (Chronic) Hyperlipidemia (Acute) Anxiety (Chronic) Iron deficiency anemia, unspecified (Acute) Medical History Essential (primary) hypertension 05/06/22 moved to , bp wnl on no meds Abdominal pain, vomiting, and diarrhea Acute dehydration Nausea alone Constipation Emesis, persistent Hydronephrosis left CHRISTIANO (acute kidney injury) Neck pain Benign tumor of pituitary gland Chronic vomiting History of HPV infection Grief reaction Depression Shortness of breath Joint pain Low back pain History of hepatitis History of Lyme disease PTSD (post-traumatic stress disorder) Surgical History EGD - MAC (01/13/17) Social History Smoking/Tobacco Use Status: Current every day Tobacco Type: cigarettes Years smoked: 6 Quit status: has quit before Smoking risk assessment performed?: Yes Alcohol Intake: current Alcohol Intake frequency: holidays/special occasions only Alcohol type: beer Drug use: Occasionally Substance use type: marijuana Housing: house Do you feel safe at home: Yes Do you feel safe in your relationship?: Yes Readmission Within the Past 30 Days Yes or No: No
[2024-07-31] MEDS: Escitalopram 20 MG TAB PO (10:28)
[2024-07-31] MEDS: Enoxaparin 40 MG/0.4 ML SYR SC (10:28)
[2024-07-31] MEDS: clonazePAM 0.5 MG TAB 1 MG PO (10:28)
[2024-07-31] MEDS: buPROPion-XL 150 MG TABCR PO (10:28)
[2024-07-31 11:09] VITALS: BP 159/91; PULSE 82; RESP 16; TEMP 37.2; O2SAT 99
[2024-07-31] MEDS: Ondansetron 4 MG/2 ML VIAL IVP ×2 (13:05→21:29)
--- NOTE | 2024-07-31 14:09 | PGE_ITS ---
Date of Service Date of service: 07/31/24 Time of Service: 14:09 Assessment and Plan Assessment and plan (1) Intractable nausea and vomiting: Status: Acute Assessment and plan: -Likely secondary to known history of cyclical vomiting syndrome - May also be contributing component from hiatal hernia though EGD done at [place] earlier in the week apparently did not show-it to be significant though unsure if plans were for discussion for surgical repair - Patient failed Compazine, Benadryl Zofran and Haldol in the emergency department - Will continue as needed Zofran as well as as needed IV Ativan for nausea and vomiting - Clear liquid diet advance as tolerated 07/31/24 continue to advance as tolerated consider scopolamine patch (2) Hypomagnesemia: Status: Acute Assessment and plan: - Mildly low at 1.5 in the emergency department status post repletion - Follow-up a.m. magnesium 07/31/24 last reading was 1.9 (wnl) (3) Hiatal hernia: Status: Chronic Assessment and plan: - May be contributing component in tractable nausea and vomiting as noted above (4) Non-insulin dependent type 2 diabetes mellitus: Status: Acute Assessment and plan: - Hold home metformin while patient having difficulty tolerating p.o. intake (5) Hypokalemia: Status: Acute Assessment and plan: will replace with oral replacement if possible (6) Iron deficiency: Status: Acute Assessment and plan: iron at 43 11/25/23 Will recheck Subjective Subjective Interval history since last seen: Pt seen and examined in her room. No new complaints Exam Narrative Exam Narrative: Fatigued appearing older female laying in bed resting in no acute distress, ANO x 4, heart regular rhythm, lungs clear to auscultation bilaterally, abdomen with mild diffuse tenderness to palpation without rebound or guarding Objective Last Vital Signs Temp 37.2 C 07/31/24 11:09 Pulse 82 07/31/24 11:09 Resp 16 07/31/24 11:09 BP 159/91 H 07/31/24 11:09 Pulse Ox 99 07/31/24 11:09 Laboratory Results - last 24 hr 07/30/24 07/31/24 15:42 05:30 WBC 13.64 H RBC 4.28 Hgb 13.2 D Hct 38.6 MCV 90 MCH 30.8 MCHC 34.2 RDW 12.5 Plt Count 323 MPV 9.3 Sodium 135 L Potassium 3.2 L Chloride 98 Carbon Dioxide 26.0 Anion Gap 11.0 BUN 10 Creatinine 1.2 H Est GFR (CKD-EPI 2020) 48.70 Glucose 163 H Calcium 10.1 Magnesium 1.9 Urine Color Yellow Urine Clarity Clear Urine pH 8.5 H Ur Specific [place] 1.015 Urine Protein >=300 H Urine Ketones 40 H Urine Blood Trace-intact H Urine Nitrite Negative Urine Bilirubin Negative Urine Urobilinogen 0.2 Ur Leukocyte Esterase Negative Urine RBC 0-2 Urine WBC Negative Ur Epithelial Cells Negative Urine Crystals Negative Urine Bacteria Negative Urine Casts Negative Urine Mucus Negative Ur Culture Indicated? No Urine Glucose Negative Time Spent with Patient Time Spent with Patient: <25 minutes Time was spent: preparing to see the patient(eg.review tests), obtaining and/or reviewing separately otained hiistory, ordering medications,tests, procedures, referring, communicating with other health care center manager, indepentently interpreting results, counseling the patient and care coordination
[2024-07-31 15:34] VITALS: BP 181/108; PULSE 86; RESP 17; TEMP 35.6; O2SAT 97
[2024-07-31] MEDS: Famotidine 20 MG TAB 40 MG PO (16:13)
--- NOTE | 2024-07-31 16:21 | PT.INIE ---
PT Notes Visit Reasons: Intractable nausea and vomiting Inpatient Physical Therapy Evaluation Date: 07/31/2024 Referring Doctor: Vikas Steiner PT Orders: PT CONSULT: evaluation of ambulatory status Precautions: [Fall risk, standard] Patient Profile/Admitting Diagnosis: []Nausea, vomiting, Hiatal Hernia 68-year-old female with a past medical history of hyperlipidemia, NIDDM, cyclical vomiting syndrome and known hiatal hernia presents to the emergency department 07/30/2024. She reports using SPC when she is feeling sick and has noted decline in ability to get around in her home and keep it up since February. PMHX: []All Active Problems (Updated 07/30/24 @ 18:30 by AMILCAR NESS) Non-insulin dependent type 2 diabetes mellitus (Acute) Intractable nausea and vomiting (Acute) Hypomagnesemia (Acute) Hammertoe of left foot (Acute) Hallux varus (acquired), left foot (Acute) Metatarsalgia of left foot (Acute) Onychomycosis (Acute) Nicotine dependence, unspecified, uncomplicated (Acute) .5 ppdDecreased libido (Acute) Insomnia, unspecified (Acute) Nausea & vomiting (Acute) Hiatal hernia (Chronic) GERD (gastroesophageal reflux disease) (Chronic) Hyperlipidemia (Acute) Anxiety (Chronic) Iron deficiency anemia, unspecified (Acute) Social History/Home Situation: lives alone in [facility], 2 dogs, cat, bird(neighbor is taking care of them) Has stairs up to shower and down for laundry. Took shower 2 weeks ago has not felt well enough to go up stairs. Has 1/2 bath and bed on single floor. Pt reports utilizes cane when she feels ill, otherwise reports no AD. Reports that she has not been able to keep up with her house and has let alot go. Her son lives in [place]. Her neighbors are currently taking care of her pets. Current Functional Limitations: Reports difficulty getting out of bed, on and off toilet, has not been up stairs for shower in 2 weeks. Equipment Owned/DME: SPC(we did not assess today) she was fatigued with transfers and balance assessment at RW and could not hold onto just 1 side of RW when just standing. Subjective: I don't have any strength, and I cannot stop vomiting Objective: General Observation: In bed, with right UE IV, heating pad on stomach, lethargic. Pt does give much effort toward PT activity and frequently utilizes emisis bag t/o session(non productive). Mental Status: A and O x4 Pain: 6/10 abdomen Vital Signs: monitored by nursing staff ROM: Right Upper Extremity:elevation to 90 Left Upper Extremity: elevation to 90 Right Lower Extremity:knee ext -20, DF 5 Left Lower Extremity:knee ext -20, DF 5 Strength: Right Upper Extremity: 2/5 of shoulder elevation, bicep 3, tricep 3, piercing specialist 3 Left Upper Extremity: 2/5 of shoulder elevation, bicep 3, tricep 3, piercing specialist 3 Right Lower Extremity:Q 2 H 2 hip abd 3 hip add 3 unable to perform calf raise or standing DF Left Lower Extremity:Q 2 H 2 hip abd 3 hip add 3 unable to perform calf raise or standing DF Sensation:denies distal numbness and tingling Bed Mobility/Transfers: 1. Supine-Sit needs min assist(HOB is already elevated), and with bedding 2. Sit-Supine needs min assist with LE 3. Sit-Stand poor mechanics even with strong v/c , pulls on walker slow to get to upright 4. Stand-Sit poor mechanics even with strong v/c , pulls on walker slow to get to upright 5. Bed-Chair NT however did with nursing staff holding onto cane and IV pole 6. Chair-Bed NThowever did with nursing staff holding onto cane and IV pole Gait: NT as patient fatigued with balance and transfer and felt too weak to take any steps. However ambulate to commode with nursing staff holding onto cane and IV pole, she has concerns of using RW as how can she do this with the IV pole. At this point due to amount of fatigue and poor balance she should be using RW until she progresses. Balance: Static Sitting: fair Dynamic Sitting: poor Static Standing: poor unable to stand without 2 hands on RW Dynamic Standing: poor barely able to march in place while holding onto RW Special Tests: Mobility Limitations Standardized Measure [facility] AM-PAC 6 clicks Basic Mobility Inpatient Short Form: Raw Score: 13 Standardized Score: 36.74 CMS Score: 64.91 Informed Consent/Education: Patient instructed in purpose of PT consult and plan of care. Assessment: Patient is a 68 year old female referred to physical therapy services with the diagnosis of Nausea, vomiting, hiatal hernia, decreased ambulatory status. Patient presents with clinical signs and symptoms consistent with decreased ambulatory status, as demonstrated by the following impairment level findings: decreased ROM UE/LE, altered gait, decreased balance, decreased ability to transfer, decreased endurance. Impairments are contributing to the following functional limitations: AMPAC score. Patient is assessed as a Low 34875 complexity based on the following: History: lives alone, decline in selfcare since February, no family nearby Examination: as above Presentation: evolving Decision Making: low Goals: Goals X1 week 1. Supine-Sit Indep 2. Sit-Supine Indep 3. Sit-Stand Indep 4. Stand-Sit Indep 5. Bed-Chair Indep 6. Chair-Bed Indep 7. Gait Ambulate with RW 8. Stairs assess 9. Independent with home exercise program 10. Balance sitting good, standing fair or better Plan of Care/Treatment Plan: 1-2x/day, 7 days/week x 1 week. Plan of care has been reviewed with the GROUNDS KEEPER providing the service under Physical Therapy direction. Initiate Physical Therapy intervention for strengthening, bed mobility, transfers, gait, stairs, balance training, use of assistive device. DISCHARGE RECOMMENDATIONS: x Home with services PT vs SNF for continued rehabilitation based on progress made while in hospital.[] TREATMENT CODE/TIME: 69067 4:40-5:05pm 25'
[2024-07-31 16:41] VITALS: BP 136/94; PULSE 79
[2024-07-31 19:13] VITALS: BP 148/90; PULSE 83; RESP 18; TEMP 37.1; O2SAT 99
[2024-07-31] MEDS: SUMAtriptan 6 MG/0.5 ML VIAL SC (21:50)
[2024-07-31] MEDS: POTASSIUM CHLORIDE/D5-0.45NACL 1,000 ML 100 MEQ IV (21:52)
[2024-08-01 06:39] LABS: Abs Immature Grans 0.02 10^3/uL (0.0-0.06); Absolute Basophil Count 0.03 10^3/uL (0.0-0.2); Absolute Eosinophil Count 0.05 10^3/uL (0.0-0.7); Absolute Lymphocyte Count 3.47 10^3/uL (1.2-3.4); Absolute Monocyte Count 0.75 10^3/uL (0.1-0.8); Basophils % 0.4 %; Eosinophils % 0.6 %; HCT 33.9 % (36.0-46.0); HGB 11.4 g/dL (11.2-15.7); Immature Grans % 0.2 %; Lymphocytes % 41.2 %; MCH 31.6 pg (27.0-33.0); MCHC 33.6 % (32.0-36.0); MCV 94 fL (80-95); MPV 9.4 fL (8.0-11.0); Monocytes % 8.9 %; Neutrophils % 48.7 %; Platelet Count 211 10^3/uL (130-400); RBC 3.61 10^6/uL (3.93-5.22); RDW 12.3 % (11.7-14.6); RDW-SD 42.8 fL; WBC 8.42 10^3/uL (4.4-10.8)
[2024-08-01 07:06] LABS: ALT 19 U/L (14-59); AST 21 U/L (15-37); Alkaline Phosphatase 80 U/L (46-116); BUN 5 mg/dL (7-18); Bilirubin, Total 0.6 mg/dL (0.2-1.0); CREATININE 0.9 mg/dL (0.55-1.02); Calcium 9.2 mg/dL (8.5-10.1); Chloride 102 mmol/L (98-107); Estimated GFR 68.77 (mL/min/1.73m2); Glucose 122 mg/dL (74-106); Potassium 4.2 mmol/L (3.5-5.1); Sodium 137 mmol/L (136-145)
[2024-08-01 07:17] VITALS: BP 144/95; PULSE 76; RESP 14; TEMP 36.9; O2SAT 97
[2024-08-01] MEDS: Pantoprazole 40 MG VIAL IVP ×2 (08:34→19:36)
[2024-08-01] MEDS: Atorvastatin 20 MG TAB PO (08:35)
[2024-08-01] MEDS: buPROPion-XL 150 MG TABCR PO (08:35)
[2024-08-01] MEDS: clonazePAM 0.5 MG TAB 1 MG PO (08:35)
[2024-08-01] MEDS: Normal Saline Flush 10 ML SYR IVP ×2 (08:36→19:37)
[2024-08-01] MEDS: Escitalopram 20 MG TAB PO (08:36)
--- NOTE | 2024-08-01 09:13 | PDOC.CMPRO ---
Date of service: 08/01/24 Time of Service: 09:14 Care Management Progress Note Progress Note Text Progress Note Text: Keke was awake and lying in bed when CM met with her. She c/o nausea, vomiting, pain, exhausted and overall just doesn't feel well and doesn't want to live like this forever. Keke engages readily in conversation and became tearful as she talked about her friend Helen whom last August from COPD, further noting that she feels lost without her. She lives alone in [place] with her 2 dogs, 3 cats and a bird (which are currently being cared for by her neighbor.) At some point, Keke would like to move closer to her son in [place] and has started looking into low income housing options but has been reluctant to move because she can't take all her animals and doesn't know how she would be able to part with any of them. Per pt, her son is coming to visit her and she is looking forward to seeing him in 1-2 days; unfortunately he can't stay long because his daughter may have a genetic disorder causing her to have a hole in her heart. Keke continues to be tearful as she takes about wishing she could take on the burden of her granddaughters sickness instead. Keke is agreeable to a Palliative consult and would also be interested in meeting with our Telma tomorrow, if possible. CM will follow. Discharge Anticipated Barriers to Discharge: None Identified Patient/Family Education Needs: Review discharge instructions, discuss Ask Me Three Transportation: RCT Plan: Anticipate, Manasa will be discharged home, once medically ready. She will follow up with her community providers, [facility] and her discharge plan of care. Keke will transport via a friend vs. RCT private vehicle. CM will continue to follow. Social Determinants of Health Screening Social Determinants of health last assessed in clinic: 08/01/24 Will the Patient Participate in the Screening?: Yes Do you worry about having a steady place to live?: no Problems where you live: no known problems In the past 12 months, have you had to go without electric, gas, oil or water in your home?: no 1. Within the past 12 months, we worried whether our food would run out before we got money to buy more.: Never true 2. Within the past 12 months, the food we bought just didn't last and we didn't have money to get more.: Never true Has lack of transportation kept you from medical appointments or from doing things needed for daily living?: no Has anyone in your life made you feel unsafe or unsupported?: no How hard is it for you to pay for the very basics like food, housing, medical care, and heating? Would you say it is:: Not hard at all Do you want help finding or keeping work or a job?: I do not need or want help If for any reason you need help with day-to-day activities such as bathing, preparing meals, shopping, managing finances, etc., do you get the help you need?: I don?t need any help How often do you feel lonely or isolated from those around you?: Never Do you speak a language other than Maltese at home?: No Does the patient want assistance with any of the above?: No
[2024-08-01 09:41] LABS: Iron 86 ug/dL (50-170); Total Iron Binding Capacity 283 ug/dL (250-450); Transferrin Sat 30 % (15-50)
--- NOTE | 2024-08-01 09:48 | W.PM.PROGNOT ---
Date of Service Date of service: 08/01/24 Time of Service: 09:48 Assessment and Plan Assessment and plan (1) Intractable nausea and vomiting: Start date: 08/01/24 Status: Acute Assessment and plan: -Likely secondary to known history of cyclical vomiting syndrome - May also be contributing component from hiatal hernia though EGD done at [place] earlier in the week apparently did not show-it to be significant though unsure if plans were for discussion for surgical repair -UDS - Patient failed Compazine, Benadryl Zofran and Haldol in the emergency department - Will continue as needed Zofran as well as as needed IV Ativan for nausea and vomiting -Sumatriptan has worked will order on a PRN basis if OK phenergan does not work -Consider scopolamine patch if above fails - Clear liquid diet advance as tolerated (2) Hypomagnesemia: Start date: 08/01/24 Status: Acute Assessment and plan: - Mildly low at 1.5 in the emergency department status post repletion -Resolved with Mg 1.9 - Follow-up a.m. magnesium pending - now 1.7- will supplement and follow-up (3) Hiatal hernia: Start date: 08/01/24 Start time: 10:05 Status: Chronic Assessment and plan: - May be contributing component in tractable nausea and vomiting as noted above As per Imaging report: -GI: There is again noted a moderate size hiatal hernia which has slightly further increased in size from 2020, presently measuring 4.6 cm AP by 4.1 cm wide by 4.3 cm craniocaudal. There is slight thickening of the GE junction. There is evidence of prior surgery in the region of the GE junction again noted. Recommend endoscopy. Surgical consult inpatient (4) Non-insulin dependent type 2 diabetes mellitus: Status: Acute Assessment and plan: A1C 5.8 to 6.2 - Hold home metformin while patient having difficulty tolerating p.o. 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 Acute there is either related to intra sacral meningocele or large bilateral Tarlov intra sacral cysts. outpatient follow-up (8) Discharge planning issues: Status: Acute Assessment and plan: CM recommendation for palliative care consultation - pending Discussed with Dr. Steiner Subjective Subjective Patient reports: no new complaints, feels better, tolerating liquids well, voiding w/o difficulty and nausea; denies tolerating a regular diet, vomiting, shortness of breath or fever Exam Narrative Exam Narrative: Neuro:alert and oriented to self, person, place time and situation. No neurological focal deficit, Resp: Normal respiratory pattern, speaks in full sentences, unlabored breathing, clear lung bilaterally Cardio: regular rhythm, S1, S2, no murmur, capillary refill<3 sec., bilateral radial and dorsalis pedis pulses are positive, palpable GI: Abdomen is not distended, soft and epigastric tenderness with oral intake , bowel sounds are present Extremities: strength 5/5 to bilateral lower and upper extremities Psych: RASS 0, congruent mood and normal affect. Objective Last Vital Signs Temp 36.9 C 08/01/24 07:17 Pulse 76 08/01/24 07:17 Resp 14 08/01/24 07:17 BP 144/95 H 08/01/24 07:17 Pulse Ox 97 08/01/24 07:17 Laboratory Results - last 24 hr 08/01/24 08/01/24 06:18 08:30 WBC 8.42 RBC 3.61 L Hgb 11.4 Hct 33.9 L MCV 94 D MCH 31.6 MCHC 33.6 RDW 12.3 Plt Count 211 MPV 9.4 Immature Gran % 0.2 Neutrophils % 48.7 Lymphocytes % 41.2 Monocytes % 8.9 Eosinophils % 0.6 Basophils % 0.4 Nucleated RBC % 0.0 Absolute Neutrophils 4.10 Absolute Lymphocytes 3.47 H Absolute Monocytes 0.75 Absolute Eosinophils 0.05 Absolute Basophils 0.03 Sodium 137 Potassium 4.2 D Chloride 102 Carbon Dioxide 27.0 Anion Gap 8.0 BUN 5 L Creatinine 0.9 Est GFR (CKD-EPI 2020) 68.77 Glucose 122 H Calcium 9.2 Iron Cancelled 86 TIBC Cancelled 283 Transferrin % Sat Cancelled 30 Total Bilirubin 0.6 AST 21 ALT 19 Alkaline Phosphatase 80 Total Protein 6.0 L Albumin 3.0 L Time Spent with Patient Time Spent with Patient: >50 minutes Time was spent: preparing to see the patient(eg.review tests), obtaining and/or reviewing separately otained hiistory, ordering medications,tests, procedures, referring, communicating with other health college and career counselor, indepentently interpreting results, counseling the patient and care coordination
[2024-08-01] MEDS: Promethazine 25 MG SUPP PR (10:18)
[2024-08-01 10:23] LABS: Magnesium 1.7 mg/dL (1.8-2.4)
[2024-08-01] MEDS: Enoxaparin 40 MG/0.4 ML SYR SC (10:45)
--- NOTE | 2024-08-01 11:07 | W.PM.ENDDOP ---
Date of service: 08/01/24 Time of Service: 11:07 Endoscopy Report DATE OF PROCEDURE: 08/01/24 PRE-OP DIAGNOSIS: Hematemesis POST-OP DIAGNOSIS: same PROCEDURE: Esophagogastroduodenoscopy with biopsy SURGEON: Damaso Bourgeois ANESTHESIA TYPE: General LMA/ETT ESTIMATED BLOOD LOSS: 2 PATHOLOGY: other (Biopsy #1 antrum; Biopsy #2 GE juncion) COMPLICATIONS: None DISPOSITION: PACU INDICATIONS: 68-year-old female with history of chronic alcoholism, having hematemesis and melena. PROCEDURE START TIME: 10:50 PROCEDURE END TIME: 11:10 FINDINGS: Normal duodenum and pylorus. Some inflammation of the antrum and prepyloric region which was biopsied. Some mild reflux esophagitis noted at GE junction. This was also biopsied PROCEDURE DESCRIPTION: Patient was taken the operating room. She underwent general anesthesia. Timeout was completed. The endoscopy scope was passed through the oropharynx into the esophagus, under direct visualization, it was then passed without difficulty to the GE junction which was at 40 cm from the teeth. There was some inflammatory change at the GE junction, consistent with reflux esophagitis. The scope was then passed into the stomach. The stomach was generously insufflated, the scope was passed onto the pylorus, and then into the duodenum. The duodenal mucosa appeared normal circumferentially. There was some bile which was present, and the ampulla could be visualized. Scope was gently retracted. At the pylorus, as well as the antrum there was some injection and thickening of the gastric mucosa, and some streaking of blood from prior bleeding. There were no ulcers. The scope was retroflexed, the body, fundus, and cardia of the stomach appeared normal, with some mild inflammation. There were no visible submucosal varices. A biopsy was obtained of the second, and inflamed antral mucosa, this was sent for permanent pathology, antrum. The scope was then retracted, to the level of the GE junction, and a biopsy was obtained of the Z-line, at about 36 cm from the teeth. This was sent for a second specimen, GE junction. The scope was retracted, the esophageal mucosa was visualized circumferentially upon removal of the scope, this was normal.
[2024-08-01] MEDS: SUMAtriptan 6 MG/0.5 ML VIAL SC (11:11)
[2024-08-01] MEDS: MAGNESIUM SULFATE 2 GM/50 ML BAG IV_INF (12:22)
--- NOTE | 2024-08-01 12:22 | PTTR_ITS ---
PT Notes Visit Reasons: Intractable Nausea and Vomiting Inpatient Physical Therapy Treatment Note [facility] Date 08/01/2024 PRECAUTIONS:Standard , abdominal pain SUBJECTIVE: She agreed to participate but concerned she would have more pain moving. ? OBJECTIVE:Pt lying on left side in position with warming blanket to abdomen. Pt received pain juan approx. 30 mins prior to sessio per Nurse Johnston. PAIN: 5/10 constant ABDOMEN VITALS: ?Monitored by nursing Therapeutic Activities ([id number][]): Direct one-on-one instruction in dynamic activities to improve functional performance. ? BED MOBILITY/TRANSFERS? Rolling L/R: Independent Supine-sit: Independent with increased time due to pain min abdomen ? Sit-supine: Independent with increased time ? Sit-stand: CGA with cues for hand placement; bed chair toilet ? Stand-sit: CGA with cues for hand placement; bed chair toilet? Bed-Chair: CGA with FWW cues for safe approach to surface and FWW management? Chair-bed: CGA with FWW cues for safe approach to surface and FWW management Provided skilled cues and instruction on performance and technique throughout. Ambulation: Facilitated safe and correct performance of level surface ambulation covering a distance of 30 feet x 2 using use front wheeled walker with contact-guard assist and wheelchair follow for safety. Did not report of any increased pain. Denied headache, chest pain, and lightheadedness throughout activity. Minimal verbal cueing provided for AD management to keep FWW closer to body, directional almodovar es, and posture. ASSESSMENT:?Patient agreed to participate with limited tolerance d/t abdominal pain. Patient with forward flexed trunk as upright posture increases pain in a bdomen. Patient with poor safety judgement requiring cues for hand placement for all transfers. Pt noted to spit up after taking one sip of drink. Nurse notified. Pt sitting up at end of session with warm blanket to abdomen. PLAN: 1-2x/day, 7 days/week x 1 week. Plan of care has been reviewed with the INSOLE ROUNDER providing the service under Physical Therapy direction. Initiate Physical Therapy intervention for strengthening, bed mobility, transfers, gait, stairs, balance training, use of assistive device. TREATMENT CODE/TIME: 70458/1138?1212 PMsession: pt declined d/t abdominal pain after po intake. Nurse aware 10 mins no charge spent with pt and nurse. DISCHARGE RECOMMENDATION: SNF versus HH PT pending progress towards goals
[2024-08-01] MEDS: ACETAMINOPHEN 1,000 MG/100 ML BAG 400 MG IVPB (16:32)
[2024-08-01] MEDS: LORazepam 20 MG/10 ML VIAL IVP ×2 (16:32→22:38)
--- NOTE | 2024-08-01 16:36 | PCNE_ITS ---
Date of service: 08/01/24 Time of Service: 15:15 History of Present Illness Narrative: Ms. Davies is a 68 y/o F currently admitted to [facility] 2/2 intractable N/V r/t CVS; PMHx sig for HLD, DM, hiatal hernia, CVS, anxiety and depression Hospital Course: presented to ED on 07/30 w/intractable N/V x1 wk, received Compazine, Benadryl, Zofran, Haldol in ED w/no improvement, failed PO trials, admitted for ongoing management w/IV meds; received Zofran and IV Ativan, on clear liquid diet to advance as tolerated; - N/V someone improved today w/use of sumatriptan and promethazine suppository; continuing to semi-tolerate clear liquid diet, preferring room temperature, not large volumes, tolerated some meds today, not all; continues to dry heave intermittently; - anxiety: present, lots of emotions, lorazepam w/good effect for anxiety Keke has suffered w/CVS her entire life, earliest memories are at 8 y/o; never worked up then; reports has had periods where it was slightly improved, but often vomits; in 2017 she had a pyloric muscle dilation procedure which did help w/sxs; recently had an EGD has part of work up, it was WNL per their report to her; she is upset w/ongoing sxs; historically Zofran has helped her, couldn't take as frequent as needed; yesi does not regularly use THC products, nor has she in several years - tolerating most clear liquids okay today, howver the Boost Breeze did hit her stomach hard w/increased pain and N immediately, tried x3 w/similar results Keke has a long trauma history w/correlating anxiety and depression. she is f/b psych specialists at [facility], which manage her meds and do therapy. considering transitioning from clonazapam to lorazepam at last visit for more frequent use if needed Keke lives alone in home in [place] with her 2 dogs, 3 cats and bird; they mean a lot to her, she fears needing to give them away if she were to relocate, she is fearful to think about if they went to a residential and would prefer keeping them if possible. She has to go up stairs to use bathroom and laundry, which she feels like she could do w/current functional abilities; she has a new grab bar to make home safer; she lives alone. she does have one close friend, watching her animals now; otherwise she has lost most of her friends and supports over the year; her son Miguelito lives in [place] and is hopefully coming to visit her, they have a good relationship. Sadly, his daughter/her granddaughter 11 years old Fanny has a heart condition which she made need surgery for; this is quite distressing for her. 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 She would need to sell her home to help pay for this. She first would have to clean out her home. She is connected to [facility], and has a CM; she is on Medicaid but denies enrollment in LTM Her preference would be to return home on discharge; she has a history of home health Nausea: reports Assessment and Plan Assessment and plan (1) Intractable nausea and vomiting: Status: Acute Assessment and plan: some improvement w/sumatriptan today, promethazine suppository d/t no IV availability continue Zofran, IV lorazepam - recommend premedicate w/lorazepam and apap, trial Boost 30m post infusion long history of; w/previous pyloric procedure w/good effect MH certainly contributing, currently w/several different factors: sick granddaughter, anticipatory fears/worries/angst 2/2 relocating and animals, loneliness, etc (2) Hiatal hernia: Status: Chronic Assessment and plan: not thought to be contributing to current N/V (3) Anxiety: Status: Chronic Assessment and plan: continue lorazepam PRN for anxiety and N continue home meds recommend close f/u w/Psych providers (4) Depression: (5) PTSD (post-traumatic stress disorder): (6) Financial difficulties: Status: Acute Assessment and plan: recommend CM coordinate w/[employer] to complete LTM application Keke would benefit greatly from [facility] program for additional home assistance, becka w/IADLs; (7) Palliative care encounter: Status: Acute Assessment and plan: PC will continue to follow, suspect d/c prior to Thu next inpt visit - f/u outpatient, likely HV, to schedule for 1m (8) ACP (advance care planning): Status: Acute Assessment and plan: reviewed palliative care, QoL and reducing suffering focus; reviewed intermediate plan to relocate to [place] w/son, need to bridge additional supports: home IADL assistance, through programs like [employer], managed via [facility], she is agreeable to start LTM process provided empathetic space to hear history, current stresses and MH concerns; will continue to follow, plan to review AD in future visits Review of Systems Narrative: as per HPI PFSH All Active Problems (Updated 08/01/24 @ 17:09 by Tosin Padilla NP) ACP (advance care planning) (Acute) Palliative care encounter (Acute) Financial difficulties (Acute) Tarlov cyst (Acute) Discharge planning issues (Acute) Iron deficiency (Acute) Hypokalemia (Acute) Non-insulin dependent type 2 diabetes mellitus (Acute) Intractable nausea and vomiting (Acute) Hypomagnesemia (Acute) Hammertoe of left foot (Acute) Hallux varus (acquired), left foot (Acute) Metatarsalgia of left foot (Acute) Onychomycosis (Acute) Nicotine dependence, unspecified, uncomplicated (Acute) .5 ppd Decreased libido (Acute) Insomnia, unspecified (Acute) Nausea & vomiting (Acute) Hiatal hernia (Chronic) GERD (gastroesophageal reflux disease) (Chronic) Hyperlipidemia (Acute) Anxiety (Chronic) Medical History (Updated 08/01/24 @ 17:09 by Tosin Padilla NP) Iron deficiency anemia, unspecified Essential (primary) hypertension 05/06/22 moved to , bp wnl on no meds Abdominal pain, vomiting, and diarrhea Acute dehydration Nausea alone Constipation Emesis, persistent Hydronephrosis left CHRISTIANO (acute kidney injury) Neck pain Benign tumor of pituitary gland Chronic vomiting History of HPV infection Grief reaction Depression Shortness of breath Joint pain Low back pain History of hepatitis History of Lyme disease PTSD (post-traumatic stress disorder) Surgical History EGD - MAC (01/13/17) Social History Smoking/Tobacco Use Status: Current every day Tobacco Type: cigarettes Years smoked: 6 Quit status: has quit before Smoking risk assessment performed?: Yes Alcohol Intake: current Alcohol Intake frequency: holidays/special occasions only Alcohol type: beer Drug use: Occasionally Substance use type: marijuana Housing: house Do you feel safe at home: Yes Do you feel safe in your relationship?: Yes Exam Narrative Exam Narrative: General: 68 y/o F, lying in hospital bed, easily engages, remains lying throughout visit HEENT: hearing grossly WNL, normocephalic, atraumatic Resp: even and unlabored, speaks full sentences w/o SOB; no cough, no audible wheeze Psych: speech/movement WNL, cries intermittently throughout visit, thought process tangential, impoverished, loose association; mood/affect labile, sad; insight/judgment limited Results Last Vital Signs Temp 98.4 F 08/01/24 07:17 Pulse 76 08/01/24 07:17 Resp 14 08/01/24 07:17 BP 144/95 H 08/01/24 07:17 Pulse Ox 97 08/01/24 07:17 Labs 08/01/24 06:18 08/01/24 06:18 Labs: Laboratory Results - last 24 hr 08/01/24 08/01/24 06:18 08:30 WBC 8.42 RBC 3.61 L Hgb 11.4 Hct 33.9 L MCV 94 D MCH 31.6 MCHC 33.6 RDW 12.3 Plt Count 211 MPV 9.4 Immature Gran % 0.2 Neutrophils % 48.7 Lymphocytes % 41.2 Monocytes % 8.9 Eosinophils % 0.6 Basophils % 0.4 Nucleated RBC % 0.0 Absolute Neutrophils 4.10 Absolute Lymphocytes 3.47 H Absolute Monocytes 0.75 Absolute Eosinophils 0.05 Absolute Basophils 0.03 Sodium 137 Potassium 4.2 D Chloride 102 Carbon Dioxide 27.0 Anion Gap 8.0 BUN 5 L Creatinine 0.9 Est GFR (CKD-EPI 2020) 68.77 Glucose 122 H Calcium 9.2 Magnesium 1.7 L Iron Cancelled 86 TIBC Cancelled 283 Transferrin % Sat Cancelled 30 Total Bilirubin 0.6 AST 21 ALT 19 Alkaline Phosphatase 80 Total Protein 6.0 L Albumin 3.0 L Time Spent Time Spent with Patient Time Spent(min): 75
--- NOTE | 2024-08-01 16:54 | SCONE_ITS ---
Date of service: 08/01/24 Time of Service: 16:54 Assessment and Plan Assessment and plan (1) Hiatal hernia: Status: Chronic Assessment and plan: Patient indicates on history she has undergone a hernia repair near the epigastrium in the past, when this is correlated with the CT scan there are some radiopaque densities near the crura and hiatus, likely she underwent a hernia repair in the past, and this represents some slight recurrence of the hernia. (2) Intractable nausea and vomiting: Status: Acute Assessment and plan: Reviewed patient's chart, she does have paper records of endoscopy performed about 3 months ago at [facility]. Colonoscopy was performed as well, both of these appear unremarkable. The hiatal hernia was described, did not appear ulcerated, nor with functional obstruction. The pylorus was noted to be normal. There likely is a strong psychosomatic component to her overall discomfort. Would like to further review workup performed at [facility] before ordering images or procedures here. I have requested last 2 years of records from [facility]. (3) Anxiety: Status: Chronic Assessment and plan: She does have some significant anxiety and depression, relating that she does not desire to live any longer due to significant discomfort from her vomiting. (4) Non-insulin dependent type 2 diabetes mellitus: Status: Acute Assessment and plan: Potentially this represents a gastroparesis, given patient's history however, since this is continued since childhood gastroparesis would be unlikely. Would like to see workup that has been done in [facility][1] prior to ordering additional radiographs here. History of Present Illness History of Present Illness Chief Complaint: Nausea and vomiting Narrative: Patient is a 68-year-old female, she has had a lifelong struggle with nausea and vomiting of unclear origin. This occurred as a little girl, and then as an adolescent, there were some areas of remission, the vomiting usually worsens with stress. Patient today very careful, with social concerns, she has limited social support, and may need to move out of her house for financial reasons. She reports history of constipation, and currently has not had a bowel movement for over a week. Recently she was at [facility] in [place], she was dissatisfied at the location, and subsequently presented here at this facility. About 3 months ago she underwent a colonoscopy and endoscopy at [facility]. She reports that she has been worked up extensively at this facility. Review of Systems All systems reviewed & are unremarkable except as noted in HPI and below PFSH All Active Problems (Updated 08/01/24 @ 17:17 by Damaso Bourgeois MD) Constipation (Acute) ACP (advance care planning) (Acute) Palliative care encounter (Acute) Financial difficulties (Acute) Tarlov cyst (Acute) Discharge planning issues (Acute) Iron deficiency (Acute) Hypokalemia (Acute) Non-insulin dependent type 2 diabetes mellitus (Acute) Intractable nausea and vomiting (Acute) Hypomagnesemia (Acute) Hammertoe of left foot (Acute) Hallux varus (acquired), left foot (Acute) Metatarsalgia of left foot (Acute) Onychomycosis (Acute) Nicotine dependence, unspecified, uncomplicated (Acute) .5 ppd Decreased libido (Acute) Insomnia, unspecified (Acute) Nausea & vomiting (Acute) Hiatal hernia (Chronic) GERD (gastroesophageal reflux disease) (Chronic) Hyperlipidemia (Acute) Anxiety (Chronic) Medical History (Updated 08/01/24 @ 17:17 by Damaso Bourgeois MD) Iron deficiency anemia, unspecified Essential (primary) hypertension 05/06/22 moved to , bp wnl on no meds Abdominal pain, vomiting, and diarrhea Acute dehydration Nausea alone Emesis, persistent Hydronephrosis left CHRISTIANO (acute kidney injury) Neck pain Benign tumor of pituitary gland Chronic vomiting History of HPV infection Grief reaction Depression Shortness of breath Joint pain Low back pain History of hepatitis History of Lyme disease PTSD (post-traumatic stress disorder) Surgical History EGD - MAC (01/13/17) Social History Smoking/Tobacco Use Status: Current every day Tobacco Type: cigarettes Years smoked: 6 Quit status: has quit before Smoking risk assessment performed?: Yes Alcohol Intake: current Alcohol Intake frequency: holidays/special occasions only Alcohol type: beer Drug use: Occasionally Substance use type: marijuana Housing: house Do you feel safe at home: Yes Do you feel safe in your relationship?: Yes Exam Narrative Exam Narrative: Patient is an adult female, she is tearful and emotional today, quite distraught regarding her nausea and vomiting, as well as dissatisfaction with some of her physician care providers at the prior facility. Her vitals show some moderate to severe hypertension but are otherwise normal. Her cardiac exam is regular rate and rhythm without gross murmur. Her abdomen has prior laparoscopic/robotic surgical scars in the upper abdomen near the epigastrium consistent with prior hiatal hernia repair. Her abdomen is soft, nontender and nondistended. Results Last Vital Signs Temp 36.9 C 08/01/24 07:17 Pulse 76 08/01/24 07:17 Resp 14 08/01/24 07:17 BP 144/95 H 08/01/24 07:17 Pulse Ox 97 08/01/24 07:17 Labs 08/01/24 06:18 08/01/24 06:18 Labs: Laboratory Results - last 24 hr 08/01/24 08/01/24 06:18 08:30 WBC 8.42 RBC 3.61 L Hgb 11.4 Hct 33.9 L MCV 94 D MCH 31.6 MCHC 33.6 RDW 12.3 Plt Count 211 MPV 9.4 Immature Gran % 0.2 Neutrophils % 48.7 Lymphocytes % 41.2 Monocytes % 8.9 Eosinophils % 0.6 Basophils % 0.4 Nucleated RBC % 0.0 Absolute Neutrophils 4.10 Absolute Lymphocytes 3.47 H Absolute Monocytes 0.75 Absolute Eosinophils 0.05 Absolute Basophils 0.03 Sodium 137 Potassium 4.2 D Chloride 102 Carbon Dioxide 27.0 Anion Gap 8.0 BUN 5 L Creatinine 0.9 Est GFR (CKD-EPI 2020) 68.77 Glucose 122 H Calcium 9.2 Magnesium 1.7 L Iron Cancelled 86 TIBC Cancelled 283 Transferrin % Sat Cancelled 30 Total Bilirubin 0.6 AST 21 ALT 19 Alkaline Phosphatase 80 Total Protein 6.0 L Albumin 3.[address] scan report/results: report reviewed and image reviewed
[2024-08-01 19:11] LABS: *AMPHETAMINES SCREEN URINE Negative (Negative); *BARBITURATES SCREEN URINE Negative (Negative); *BENZODIAZEPINES SCREEN URINE Negative (Negative); Cannabinoids THC Positive (Negative); Cocaine Screen,Urine Negative (Negative); METHADONE URINE SCREEN Negative (Negative); OPIATES URINE SCREEN Negative (Negative); Tricyclic Antidepressants Negative (Negative)
[2024-08-01] MEDS: Scopolamine 1 MG/3 DAYS PATCH TD (19:48)
[2024-08-01 20:39] VITALS: BP 150/90; PULSE 64; RESP 20; TEMP 37.1; O2SAT 97
[2024-08-01 22:46] VITALS: BP 145/70; PULSE 71; RESP 18; TEMP 37; O2SAT 95
[2024-08-02 04:38] VITALS: BP 125/64; PULSE 72; RESP 20; TEMP 37; O2SAT 97
[2024-08-02 07:05] LABS: Abs Immature Grans 0.03 10^3/uL (0.0-0.06); Absolute Basophil Count 0.03 10^3/uL (0.0-0.2); Absolute Eosinophil Count 0.07 10^3/uL (0.0-0.7); Absolute Lymphocyte Count 2.41 10^3/uL (1.2-3.4); Absolute Monocyte Count 0.54 10^3/uL (0.1-0.8); Absolute Neutrophil Count 4.12 10^3/uL (1.2-6.7); Basophils % 0.4 %; HCT 35.8 % (36.0-46.0); Immature Grans % 0.4 %; Lymphocytes % 33.5 %; MCH 30.4 pg (27.0-33.0); MCHC 33.5 % (32.0-36.0); MCV 91 fL (80-95); Monocytes % 7.5 %; Neutrophils % 57.2 %; Platelet Count 260 10^3/uL (130-400); RBC 3.95 10^6/uL (3.93-5.22); RDW 11.9 % (11.7-14.6); RDW-SD 39.4 fL
[2024-08-02 07:23] VITALS: BP 131/94; PULSE 79; RESP 14; TEMP 36.3; O2SAT 97
[2024-08-02 07:28] LABS: Anion Gap 7.9 mmol/L (3-11); BUN 6 mg/dL (7-18); CO2 29.1 mmol/L (21.0-32.0); Calcium 9.1 mg/dL (8.5-10.1); Chloride 100 mmol/L (98-107); Estimated GFR 60.61 (mL/min/1.73m2); Glucose 110 mg/dL (74-106); Magnesium 2.2 mg/dL (1.8-2.4); Potassium 3.2 mmol/L (3.5-5.1); Sodium 137 mmol/L (136-145)
[2024-08-02] MEDS: ACETAMINOPHEN 1,000 MG/100 ML BAG 400 MG IVPB ×3 (09:06→21:53)
[2024-08-02] MEDS: Polyethylene Glycol 3350 17 GM PACKET PO (09:06)
[2024-08-02] MEDS: Pantoprazole 40 MG VIAL IVP ×2 (09:07→21:48)
[2024-08-02] MEDS: Atorvastatin 20 MG TAB PO (09:08)
[2024-08-02] MEDS: Normal Saline Flush 10 ML SYR IVP ×5 (09:08→21:48)
[2024-08-02] MEDS: Docusate Sodium 100 MG CAP PO (09:08)
[2024-08-02] MEDS: clonazePAM 0.5 MG TAB 1 MG PO (09:09)
[2024-08-02] MEDS: buPROPion-XL 150 MG TABCR PO (09:09)
[2024-08-02] MEDS: Escitalopram 20 MG TAB PO (09:09)
--- NOTE | 2024-08-02 09:59 | PGE_ITS ---
Date of Service Date of service: 08/02/24 Time of Service: 10:00 Assessment and Plan Assessment and plan (1) Intractable nausea and vomiting: Start date: 08/01/24 Status: Acute Assessment and plan: -Likely secondary to known history of cyclical vomiting syndrome - May also be contributing component from hiatal hernia though EGD done at [facility] but mentioned that GI provider did not recommend repairt in the past - UDS - showed positive THC on 08/01 in cyclical vomiting - Patient failed Compazine, Benadryl Zofran and Haldol in the emergency department - Will continue as needed Zofran as well as as needed IV Ativan for nausea and vomiting - PRN Sumatriptan has worked will order on a PRN basis -MI phenergan minimally effective -Continue scopolamine patch -Clear liquid diet advance as tolerated (2) Hypomagnesemia: Start date: 08/01/24 Status: Acute Assessment and plan: Resolved (3) Hiatal hernia: Start date: 08/01/24 Start time: 10:05 Status: Chronic Assessment and plan: - May be contributing component in tractable nausea and vomiting as noted above As per Imaging report: -GI: There is again noted a moderate size hiatal hernia which has slightly further increased in size from 2020, presently measuring 4.6 cm AP by 4.1 cm wide by 4.3 cm craniocaudal. There is slight thickening of the GE junction. There is evidence of prior surgery in the region of the GE junction again noted. Recommend endoscopy. Surgical consult inpatient - records requested pending review (4) Non-insulin dependent type 2 diabetes mellitus: Status: Acute Assessment and plan: A1C 5.8 to 6.2 - Hold home metformin while patient having difficulty tolerating p.o. intake -Continue diet management for pre- diabetes monitor BMP daily glucose- Initiate SSI if needed with Glucose monitoring AC and HS - not at this time (5) Hypokalemia: Status: Acute Assessment and plan: K 3.2 BMP in AM (6) Iron deficiency: Status: Acute Assessment and plan: Resolved -Iron at 43 11/25/23-now 86 w transferrin sat 30 (7) Tarlov cyst: Status: Acute Assessment and plan: Chronic - seen as far as 2020 Imaging report: -Relatively stable appearance of the previously described expansile findings in the sacral canal, again exhibiting smooth erosion of the cortex. Acute there is either related to intra sacral meningocele or large bilateral Tarlov intra sacral cysts. outpatient follow-up (8) Discharge planning issues: Status: Acute Assessment and plan: CM recommendation for palliative care consultation completed , please read notes Discussed with Dr. Steiner Subjective Subjective Patient reports: no new complaints, feels better, still having pain (abd, sternal pain with oral intake ), tolerating liquids well, voiding w/o difficulty and nausea; denies tolerating a regular diet, vomiting, shortness of breath or fever Exam Narrative Exam Narrative: Neuro:alert and oriented X4 No neurological focal deficit, Resp: Normal respiratory pattern, speaks in full sentences, unlabored breathing, clear lung bilaterally Cardio: regular rhythm, S1, S2, no murmur GI: Abdomen is not distended, soft and epigastric vs retrosternal tenderness with oral intake of liquid , bowel sounds are present Extremities: strength 5/5 to bilateral lower and upper extremities Psych: RASS 0, congruent mood and normal affect. Objective Last Vital Signs Temp 36.3 C L 08/02/24 07:23 Pulse 79 08/02/24 07:23 Resp 14 08/02/24 07:23 BP 131/94 H 08/02/24 07:23 Pulse Ox 97 08/02/24 07:23 Laboratory Results - last 24 hr 08/01/24 08/01/24 08/02/24 08:30 17:05 06:33 WBC 7.20 RBC 3.95 Hgb 12.0 Hct 35.8 L MCV 91 MCH 30.4 MCHC 33.5 RDW 11.9 Plt Count 260 MPV 9.0 Immature Gran % 0.4 Neutrophils % 57.2 Lymphocytes % 33.5 Monocytes % 7.5 Eosinophils % 1.0 Basophils % 0.4 Nucleated RBC % 0.0 Absolute Neutrophils 4.12 Absolute Lymphocytes 2.41 Absolute Monocytes 0.54 Absolute Eosinophils 0.07 Absolute Basophils 0.03 Sodium 137 Potassium 3.2 L D Chloride 100 Carbon Dioxide 29.1 Anion Gap 7.9 BUN 6 L Creatinine 1.0 Est GFR (CKD-EPI 2020) 60.61 Glucose 110 H Calcium 9.1 Magnesium 1.7 L 2.2 Urine Opiates Screen Negative Urine Methadone Screen Negative Ur Barbiturates Screen Negative Ur Tricyclics Screen Negative Ur Amphetamines Screen Negative U Benzodiazepines Scrn Negative Urine Cocaine Screen Negative Ur THC Screen Positive A Time Spent with Patient Time Spent with Patient: >50 minutes Time was spent: preparing to see the patient(eg.review tests), obtaining and/or reviewing separately otained hiistory, ordering medications,tests, procedures, referring, communicating with other health home care provider, indepentently interpreting results, counseling the patient and care coordination
--- NOTE | 2024-08-02 10:11 | PDOC.CMDIS ---
Date of service: 08/02/24 Time of Service: 16:25 LACE Index Scoring Tool Questions: Length of Stay (in days): 3 Was the patient admitted via the E.D.?: Yes Comorbidities: Diabetes w/o Complication E.D. Visits: 1 Answers: Total Score: 8 Risk of Readmission: Low Risk Care Management Discharge Plan Reason for Hospitalization: Nausea Discharge Plan: Keke is medically cleared for discharge. Patient/Family Education Needs: Review discharge instructions and plan to follow up with community providers. Discuss ask me three.
[2024-08-02] MEDS: Enoxaparin 40 MG/0.4 ML SYR SC (10:54)
[2024-08-02] MEDS: POTASSIUM CHLORIDE 20 MEQ/100 ML BAG 50 MEQ IV_INF ×2 (10:54→13:18)
--- NOTE | 2024-08-02 13:44 | CHAPLAIN ---
Keke was in bed when I visited. Her nurse was just finishing up with Timothy. Keke told me that she was raised [employer], and then attended the [facility] [employer], after moving from [place] to [place], [place] more than 20 years ago. She said she drove to the [employer] in [place] to attend on , but the congregation was closed as the schedule had changed for . Keke talked about her best friend who year ago on August 20, and how she has struggled since then. She said she and her friend were very close and spent a lot of time together. Keke was tearful speaking about her friend. She is thinking of moving back to [place] to live closer to her son, and would like to put a tiny home on his property to be close to him and her three grandchildren. Keke said she's had trouble finding an apartment there because they are very expensive and she wouldn't be able to bring her two cats, two dogs and parakeet, who are all very important to her. I offered a prayer with Keke and plan to bring her a prayer shawl.
[2024-08-02 14:57] VITALS: BP 156/68; PULSE 65; RESP 16; TEMP 36.7; O2SAT 97
--- NOTE | 2024-08-02 16:17 | PT.INTREAT ---
Date of service: 08/02/24 Time of Service: 15:45 PT Notes Visit Reasons: Intractable Nausea and Vomiting Inpatient Physical Therapy Treatment Note [facility] Date: 08/02/2024 PRECAUTIONS: Standard , abdominal pain SUBJECTIVE: Stated she is hoping to get help with her home situation, needs help with her housekeeping tasks. Indicated she is getting assistance to apply for financial help with this. Son is coming from [place] tomorrow and she would like to move back home to [place], in the near future, to be close to her family. Shower is on second floor and washer is in basement at her current home. OBJECTIVE: ? PAIN: Indicated her stomach was not as painful post IV meds. Needs to get moving to make her bowels move. Had a very small BM earlier in the afternoon. Therapeutic Activities ([id number] - 25 minutes): Direct one-on-one instruction in dynamic activities to improve functional performance. ? BED MOBILITY/TRANSFERS? Rolling L/R: SBA Supine-sit: SBA? Sit-supine: SBA ? Sit-stand: SBA, but did request that Keke use bed or arms of chair when going sit to stand for safer transition.? Stand-sit: SBA, but again requested that she reach back for arms of chair or bed before sitting down to insure seat is stable behind her.? Provided skilled cues and instruction on performance and technique throughout. ? GAIT? Assistive Device: FWW? Weight bearing: Full Assist: SBA, with wheelchair follow ? Distance:? 80ft x 2? Slow steady gait pattern, with good step strategy.? STAIRS: Not performed today? ASSESSMENT:? Focused on ambulation on flat surfaces, but if feeling better tomorrow would request she try the stairs for preparation to return home. PLAN: Continue to work on ADL function for safe mobility. TREATMENT CODE/TIME: [id number], 3:45 to 4:10 pm DISCHARGE RECOMMENDATION: SNF versus PT pending progress towards goals
--- NOTE | 2024-08-02 17:33 | PDOC.CMPRO ---
Date of service: 08/02/24 Time of Service: 17:33 Care Management Progress Note Progress Note Text Progress Note Text: Keke continues to have abdominal pain and nausea which per pt she has had most of her life, but much over the last few weeks. Keke was recently admitted and discharged from [facility] for similar symptoms and her records have been received. Keke was evaluated by PT and they recommendation at this time is PT vs SNF for STR on discharge. Keke would need a qualifying stay in order to discharge to a SNF, which she has not had during this admission. Keke's primary support system is her son whom lives in [place] and a few neighbors. Anticipate, Keke will discharge home with New [facility] RN/PT/OT/BENDING ROLL OPERATOR when medically ready. Per pt, her neighbor has surgery in the morning and is unable to care for her pets after that. Keke will transport via [facility] ptivate vehicle. CM will follow. Discharge Potential Discharge Needs: PCP F/U Appt Anticipated Barriers to Discharge: None Identified Patient/Family Education Needs: Review discharge instructions, discuss Ask Me Three Transportation: [facility] Transportation: Private vechicle Plan: Surgical is consulted and wants to review her records from her recent [facility] hospitalization before recommending a plan of care. Anticipate, Manasa will be discharged home with New [facility] RN/PT/OT/BENDING ROLL OPERATOR once medically ready for discharge, likely Thursday per hospitalist. Keke will follow up with her community providers, [facility] and her discharge plan of care. Keke will transport via [facility] private vehicle. CM will continue to follow. Social Determinants of Health Screening Social Determinants of health last assessed in clinic: 08/02/24 Will the Patient Participate in the Screening?: Yes Do you worry about having a steady place to live?: no Problems where you live: no known problems In the past 12 months, have you had to go without electric, gas, oil or water in your home?: no 1. Within the past 12 months, we worried whether our food would run out before we got money to buy more.: Never true 2. Within the past 12 months, the food we bought just didn't last and we didn't have money to get more.: Never true Has lack of transportation kept you from medical appointments or from doing things needed for daily living?: no Has anyone in your life made you feel unsafe or unsupported?: no How hard is it for you to pay for the very basics like food, housing, medical care, and heating? Would you say it is:: Not hard at all Do you want help finding or keeping work or a job?: I do not need or want help If for any reason you need help with day-to-day activities such as bathing, preparing meals, shopping, managing finances, etc., do you get the help you need?: I don?t need any help How often do you feel lonely or isolated from those around you?: Never Do you speak a language other than Sinhala at home?: No Does the patient want assistance with any of the above?: No
[2024-08-02 19:55] VITALS: BP 146/90; PULSE 80; RESP 18; TEMP 36.5; O2SAT 96
--- NOTE | 2024-08-02 19:58 | W.PM.PROGNOT ---
Date of Service Date of service: 08/02/24 Time of Service: 17:58 Assessment and Plan Assessment and plan (1) Chronic vomiting: Assessment and plan: Improved today, which does not seem to be the pattern of her illness, having relapsing and remitting episodes. Provided the patient today with a gastrointestinal dietary log. (2) Hiatal hernia: Status: Chronic Assessment and plan: Talked extensively with patient today, was able to review her records from [facility], this included outpatient records from gastroenterology clinics as well. She has undergone a Chrystal fundoplication in the past this was around 2016, and was performed at [facility]. Her surgeon was Dr. Jabier Palmer who specializes in thoracic surgery as well as foregut surgery and hiatal hernias. Will reach out to Dr. Palmer at [facility]. I think if we can set her up with an appointment to see Dr. Palmer as an outpatient this will be what she needs. Upper GI studies and a thorough workup have already been performed at [facility] in the past. (3) Anxiety: Status: Chronic Assessment and plan: Patient's son is planned to come up tomorrow, and provide patient with assistance. Do plan for discharge tomorrow if she still feels well. Subjective Subjective Interval history since last seen: Patient reports that her nausea and abdominal pain are improved today. Exam Narrative Exam Narrative: Patient today is awake and alert, and much less discomfort than yesterday. Objective Last Vital Signs Temp 36.5 C 08/02/24 19:55 Pulse 80 08/02/24 19:55 Resp 18 08/02/24 19:55 BP 146/90 H 08/02/24 19:55 Pulse Ox 96 08/02/24 19:55 Laboratory Results - last 24 hr 08/02/24 06:33 WBC 7.20 RBC 3.95 Hgb 12.0 Hct 35.8 L MCV 91 MCH 30.4 MCHC 33.5 RDW 11.9 Plt Count 260 MPV 9.0 Immature Gran % 0.4 Neutrophils % 57.2 Lymphocytes % 33.5 Monocytes % 7.5 Eosinophils % 1.0 Basophils % 0.4 Nucleated RBC % 0.0 Absolute Neutrophils 4.12 Absolute Lymphocytes 2.41 Absolute Monocytes 0.54 Absolute Eosinophils 0.07 Absolute Basophils 0.03 Sodium 137 Potassium 3.2 L D Chloride 100 Carbon Dioxide 29.1 Anion Gap 7.9 BUN 6 L Creatinine 1.0 Est GFR (CKD-EPI 2020) 60.61 Glucose 110 H Calcium 9.1 Magnesium 2.2 Time Spent with Patient Time Spent with Patient: 25-34 minutes Time was spent: preparing to see the patient(eg.review tests), obtaining and/or reviewing separately otained hiistory, indepentently interpreting results and counseling the patient
[2024-08-02] MEDS: Cyclobenzaprine 10 MG TAB PO (21:53)
[2024-08-03 00:05] VITALS: BP 112/70; PULSE 67; RESP 18; TEMP 36.8; O2SAT 94
[2024-08-03 08:23] VITALS: BP 139/98; PULSE 76; RESP 18; TEMP 36.8; O2SAT 99
[2024-08-03] MEDS: Normal Saline Flush 10 ML SYR IVP (08:59)
[2024-08-03] MEDS: Pantoprazole 40 MG VIAL IVP (08:59)
[2024-08-03] MEDS: Enoxaparin 40 MG/0.4 ML SYR SC (08:59)
[2024-08-03] MEDS: Escitalopram 20 MG TAB PO (09:00)
[2024-08-03] MEDS: clonazePAM 0.5 MG TAB 1 MG PO (09:00)
[2024-08-03] MEDS: buPROPion-XL 150 MG TABCR PO (09:00)
[2024-08-03] MEDS: Atorvastatin 20 MG TAB PO (09:00)
--- NOTE | 2024-08-03 09:50 | W.PALPGNOTE ---
Date of service: 08/03/24 Time of Service: 09:00 Assessment and Plan Assessment and plan (1) Constipation: Status: Acute Assessment and plan: no BM during this hospitalization (2) Financial difficulties: Status: Acute Assessment and plan: would benefit from LTM if eligible called [facility] and left (3) Discharge planning issues: Status: Acute Assessment and plan: plan for discharge today; continues to require ADL assistance, lives alone w/o help available; son avail today to help set her up but needs to leave today PT provided walker needs to go up stairs for bathroom/shower (4) Intractable nausea and vomiting: Status: Acute Assessment and plan: she feels no better/worse compared to when discharged from [facility]; has not tolerated advancing diet to date Sumatriptan PRN w/some positive effect; will be ordered discharge, along w/Zofran (5) Hiatal hernia: Status: Chronic Assessment and plan: surgical consult - coordinating w/surgeon at Dr Palmer for outpatient f/u (6) Tarlov cyst: Status: Acute Assessment and plan: outpatient f/u (7) Chronic vomiting: Assessment and plan: long standing; not vomiting anymore during this hospitalization multifactorial, w/strong suspicion of psychosocial component contacted PCP/rd project manager office, agree w/recommendation to transition from clonazepam to lorazepam (8) Depression: Assessment and plan: f/u w/rd project manager next week (9) PTSD (post-traumatic stress disorder): Assessment and plan: as above (10) Palliative care encounter: Status: Acute Assessment and plan: PC will continue to follow, f/u HV at soonest available, to be scheduled PPS 60% today, around 70% at baseline (11) ACP (advance care planning): Status: Acute Assessment and plan: reviewed concerns w/returning home alone, too soon and requiring assistance w/ADLs, not tolerating diet to date, concern for re-admissions, safety at home, etc; Keke is adament she is returning home today; hospitalist reports doesn't meet criteria; did not want to go to SNF reviewed AD previously completed in 2017 - [facility] is still [facility]; she was unaware it said full code and do everything indefinitely; she would want a trial of LST, but not indefinitely, would want tried for 1 mo reviewed equipment operator intermodal yard plan, needs bridge for this plan , would benefit from LTM; called [facility] as above reviewed f/u plan for PC outpatient HV spent 20m w/ACP Subjective Subjective Interval history since last seen: Keke remains hospitalized 2/2 intractable N/V She has not tolerated advancing her diet to date; is still on clear liquid, but has not been tolerating more than 200mL at a time, even w/premedication She continues to need ADL support, 1 person transfer assist, unsteadiness today; but did transfer ind a few days ago no BM during hospitalization; continent of urine Surgery consult yesterday, going to review [facility] records and connect w/thoracic surgeon at Dr Palmer plan for discharge today Keke is adamant she is returning home today, Her son is on his way up from [place], arriving around 11a. Her plan is to have him bring her home and help get home set up/clean and get appropriate food in home. She feels she can be safe at home after he helps. He will help her go upstairs to shower. He does have to leave today for his daughter's surgery tomorrow She denies nausea currently, but does have abdominal pain immediately w/food in stomach; she does not have Zofran remaining in home. Would like to have sumatripan PRN at home since this has worked. Keke reports a negative experience at [facility], they did a number on me, felt deserted by them, that they kicked her out before she was ready to leave. She worries this will impact the care she receives everywhere, yet denies this experience today. She doesn't feel like people are taking her seriously She is connected w/[facility] team psychologist Charla Garcia; she does have clonazepam at home, but is interested in switching to lorazepam, will bring up w/them at next visit, which she believes in scheduled She has not heard anything regarding the LTM application, has left a message at [facility] w/Shanae wondering about this. She states I'm failing, she is determined to go home today; person watching her animals is having surgery and there is nothing they can do for me that I can't do at home. She knows she did complete an AD in 2017, does not remember what it says, [facility] as [facility]; She would want all LST at this time, would want it tried for a short time, a month trial at least. Exam Narrative Exam Narrative: General: 68 y/o F, lying in hospital bed, easily engages, remains lying throughout visit HEENT: hearing grossly WNL, normocephalic, atraumatic Resp: even and unlabored, speaks full sentences w/o SOB; no cough, no audible wheeze Psych: speech/movement WNL, cries intermittently throughout visit, thought process tangential, impoverished, loose association; mood/affect labile, sad; insight/judgment limited Objective Last Vital Signs Temp 98.2 F 08/03/24 08:23 Pulse 76 08/03/24 08:23 Resp 18 08/03/24 08:23 BP 139/98 H 08/03/24 08:23 Pulse Ox 99 08/03/24 08:23
--- NOTE | 2024-08-03 10:00 | PDOC.CMPRO ---
Date of service: 08/03/24 Time of Service: 10:00 Care Management Progress Note Discharge Potential Discharge Needs: PCP F/U Appt and Surgical F/U Appt (With Dr. Palmer from [facility] ) Anticipated Barriers to Discharge: Medical Status Patient/Family Education Needs: Review discharge instructions, discuss Ask Me Three Transportation: [facility] Plan: Surgical is consulted and after reviewing her records, wants to set her up with an appointment to see Dr. Palmer as an outpatient, as he preformed Chrystal fundoplication in the past (2016). Anticipate, Manasa will be discharged home with New [facility] RN/PT/OT/MECHATRONICS ENGINEER once medically ready for discharge, likely Thursday per hospitalist. Keke will follow up with her community providers, [facility] and her discharge plan of care. Keke will transport via [facility] private vehicle. CM will continue to follow. Social Determinants of Health Screening Social Determinants of health last assessed in clinic: 08/03/24 Will the Patient Participate in the Screening?: Yes Do you worry about having a steady place to live?: no Problems where you live: no known problems In the past 12 months, have you had to go without electric, gas, oil or water in your home?: no 1. Within the past 12 months, we worried whether our food would run out before we got money to buy more.: Never true 2. Within the past 12 months, the food we bought just didn't last and we didn't have money to get more.: Never true Has lack of transportation kept you from medical appointments or from doing things needed for daily living?: no Has anyone in your life made you feel unsafe or unsupported?: no How hard is it for you to pay for the very basics like food, housing, medical care, and heating? Would you say it is:: Not hard at all Do you want help finding or keeping work or a job?: I do not need or want help If for any reason you need help with day-to-day activities such as bathing, preparing meals, shopping, managing finances, etc., do you get the help you need?: I don?t need any help How often do you feel lonely or isolated from those around you?: Never Do you speak a language other than American at home?: No Does the patient want assistance with any of the above?: No Anticipated HH Services Anticipated HH Services at Discharge [facility] Needed, MECHATRONICS ENGINEER, OT, PT and RN.
--- NOTE | 2024-08-03 10:35 | PT.INTREAT ---
PT Notes Visit Reasons: Intractable Nausea and Vomiting Inpatient Physical Therapy Treatment Note [facility] Date: 08/03/2024 PRECAUTIONS: Standard , abdominal pain SUBJECTIVE: Patient reports she thinks she is going home today son is coming from [place] tomorrow and she would like to move back home to [place], in the near future, to be close to her family. Patient reports she has 2 steps to enter with rail she states she pulls herself up the stairs using the rail. Shower is on second floor and washer is in basement at her current home. OBJECTIVE: Supine in bed with warm packs to abdomen ? PAIN: Therapeutic Activities ([id number]): Direct one-on-one instruction in dynamic activities to improve functional performance. ? BED MOBILITY/TRANSFERS? 1st/2nd session Rolling L/R: SBA Supine-sit: SBA? Sit-supine: SBA ? Sit-stand: SBA, cues for hands when FWW in front of her? Stand-sit: SBA, but again requested that she reach back for arms of chair or bed before sitting down to insure seat is stable behind her.? Provided skilled cues and instruction on performance and technique throughout. ? 1st session: Facilitated safe and correct performance of level surface ambulation covering a distance of 30 feet x 2 using cane with contact-guard assist and wheelchair follow for safety. Did not report of any increased pain. Denied headache, chest pain, and lightheadedness throughout activity. Minimal verbal cueing provided for AD management, directional changes, and posture.? 2nd session GAIT? Assistive Device: FWW? Weight bearing: Full Assist: SBA, with wheelchair follow ? Distance:60? ft x 2? Slow steady gait pattern, with good step strategy.? (2nd session) STAIRS: 3 4 steps? and 2 6 steps with rails SBA with cues for sequencing step to pattern d/t LLE weakness? ASSESSMENT:?Patient tolerated sessions well recommend patient to continue use of FWW within home for improved quality of gait. Patient demonstrates shortened step length with use of single-point cane in the right upper extremity. Patient demonstrated ability and second session to perform stairs with step to pattern recommended due to left lower extremity weakness. Patient agreeable to this and able to demonstrate carryover. Recommend home PT to progress with gait training with least restrictive device. PLAN: Continue to work on ADL function for safe mobility. TREATMENT CODE/TIME: [id number] /[id number]/ [id number] DISCHARGE RECOMMENDATION: PT
--- NOTE | 2024-08-03 10:54 | CMDISCH_ITS ---
Date of service: 08/03/24 Time of Service: 10:57 LACE Index Scoring Tool Questions: Length of Stay (in days): 4 - 6 Was the patient admitted via the E.D.?: Yes Comorbidities: Diabetes w/o Complication E.D. Visits: 1 Answers: Total Score: 9 Risk of Readmission: Low Risk Care Management Discharge Plan Reason for Hospitalization: Intractable Nausea and Vomiting Discharge Plan: Surgical was consulted and after reviewing her records, they want to set her up with an appointment to see Dr. Palmer as an outpatient, as he preformed Chrystal fundoplication in the past (2017). Manasa will be discharged home with New [facility] RN/PT/OT/THERMOFORMING MACHINE OPERATOR today. Keke will follow up with her community providers, [facility] and her discharge plan of care. Keke will transport via private vehicle by her son. Patient/Family Education Needs: Review discharge instructions, activity, limitations, and plan of care. Discuss Ask Me Three. Services Needed at Discharge: Home Health Care Services (RN/PT/OT/THERMOFORMING MACHINE OPERATOR)
[2024-08-03] MEDS: LORazepam 0.5 MG TAB PO (11:11)
--- NOTE | 2024-08-03 11:56 | W.PM.DS.N ---
Date of service: 08/03/24 Time of Service: 11:57 DS: Diagnosis Discharge Diagnosis (1) Constipation: Status: Acute (2) Financial difficulties: Status: Acute (3) Discharge planning issues: Status: Acute (4) Intractable nausea and vomiting: Status: Acute (5) Hiatal hernia: Status: Chronic (6) Tarlov cyst: Status: Acute (7) Chronic vomiting: Status: Acute (8) Depression: (9) PTSD (post-traumatic stress disorder): (10) Palliative care encounter: Status: Acute (11) ACP (advance care planning): Status: Acute Discharge Plan Disposition Patient Disposition: Home W/Home Health Services Condition: Improving Discharge Details Reason For Visit: Intractable Nausea and Vomiting Admit Date/Time: 07/30/24 17:52 Admit Provider: Manuelito Liz Attending Provider: Manuelito Liz Primary Care Provider: Ben Bateman Hospital Course Hospital Course: This 68-year-old female with a past medical history of hyperlipidemia, NIDDM, cyclical vomiting syndrome and known hiatal hernia presented to the emergency department with nausea and vomiting on 07/30/24 lasting over a week. In the emergency department the patient was noted to being uncomfortable due to nausea but did have otherwise normal vital signs, CBC and CMP though was noted to have some mild hypomagnesemia. She had a CT abdomen pelvis that showed known hiatal hernia it was also discovered that patient had a recent upper endoscopy at [facility] did not show any acute findings other than her known hiatal hernia. While in the emergency department the patient had Compazine, Benadryl, Zofran and Haldol without significant improvement as she had very quickly failed p.o. fluid challenge. At which time emergency room provider paged hospitalist for admission for patient with intractable nausea and vomiting. Surgical consult with Dr. Bourgeois completed with no recommendation for EGD or other intervention after review previous medical records. Dr. Bourgeois senior genetic counselor the paitent on care s/p discharge and will set-up follow-up at [facility] thoracic surgery with Dr. bergman. The patient was able to tolerate enteral intake with antiemetic medicines with discomfort resolving with oral pain medicines. USD was positive for TCH but has not smoked cannabis since mother's day but inquired about drabinol showing in USD. The patient is hemodynamically stable and will be discharged home with home health PT, OT, nursing and HELP DESK ADMINISTRATOR. Follow-up with PCP within7 days of discharge please. Recommendation for PCP follow-up: Follow-up on progress of [facility] thoracic surgery referral with Dr. Jabier Fry swallow test Hiatal hernia Tarlov cyst Discussed with Dr. Steiner Recommendations for Follow Up Recommended tests to be ordered by follow up provider: Mg, BMP Home Meds and New Rx's Prescriptions: New acetaminophen 500 mg capsule 1,000 mg PO TID Qty: 30 0RF ondansetron 4 mg tablet,disintegrating 4 mg PO Q8H PRNQty: 30 0RF scopolamine base [Transderm-Scop] 1 mg over 3 days patch 3 day 1 patch transdermal Q72H Qty: 10 0RF sumatriptan succinate 25 mg Tablet 25 mg PO DAILY PRN PRNQty: 30 0RF prochlorperazine maleate [Compazine] 5 mg tablet 5 mg PO TID PRNQty: 30 0RF Continued omega-3 fatty acids-fish oil 1 EACH capsule 1 ea PO DAILY calcium carbonate-vitamin D3 [Calcium 500 + D] 1 EACH tablet 1 ea PO DAILY glucosam-chond fy-sxcpbs-fv ac 1 EACH capsule 1 ea PO DAILY Multi-Day Plus Minerals 1 EACH tablet 1 ea PO DAILY atorvastatin 20 mg tablet 20 mg PO DAILY famotidine 20 mg tablet 20 mg PO DAILY PRN clonazepam 0.5 mg tablet,disintegrating 1 mg PO .QD cyclobenzaprine 10 MG tablet 10 mg PO TID PRN (Reason: Muscle Spasm) Qty: 8 0RF potassium chloride 10 mEq capsule, extended release 10 meq PO DAILY Patient Comments: TAKE ONE CAPSULE BY MOUTH TWICE A DAY metformin 500 mg tablet extended release 24 hr 500 mg PO DAILY Patient Comments: TAKE ONE TABLET BY MOUTH EVERY DAY WITH MEAL(S) FOR PREDIABETES bupropion HCl 150 mg tablet extended release 24 hr 150 mg PO QAM Patient Comments: TAKE ONE TABLET BY MOUTH EVERY MORNING FOR DEPRESSION / LOW MOTIVATION promethazine 25 mg suppository 25 mg AK Q6H PRN Patient Comments: INSERT 1 SUPPOSITORY RECTALLY EVERY 6 HOURS NEEDED FOR MOTION SICKNESS escitalopram oxalate 20 mg tablet 20 mg PO DAILY Patient Comments: TAKE ONE TABLET BY MOUTH EVERY DAY DIRECTED pantoprazole 40 mg tablet,delayed release (DR/EC) 40 mg PO DAILY Qty: 0 0RF Patient Comments: Take 1 tablet by mouth once a day Discontinued prochlorperazine maleate 10 mg tablet 10 mg PO Q6H PRN ondansetron 8 mg tablet,disintegrating 8 mg PO Q8H PRN Patient Comments: DISSOLVE ONE TABLET ON THE TONGUE EVERY 8 HOURS NEEDED FOR NAUSEA AND VOMITING Discharge Instructions Stand Alone Forms: Nursing Discharge Form Referrals: Ben Bateman [Primary Care Provider, Medicine] - 08/09/24 1:00 pm Referral Note: Follow-up within 7 days of discharge please Activity:: Activity as Tolerated Equipment/Supplies:: Walker Diet:: heart healthy diabetic Discharge Orders Discharge Orders: Discharge Order (Routine); Ordered 08/03/24 Ordered By: Nancy Cisneros DS: Summary Time Spent with Patient providing and/or coordinating discharge services: Greater than 30 minutes Specific discharge activities: As per Sx counseling: #1 for return to the hospital. Most salience would be dehydration. Clinically for her, if she stops urinating, especially for 24 hours this would be a reason to present to the hospital. If she does develop syncope, disorientation, confusion, or falls, this certainly is another reason to present to the hospital. Discuss exerting caution her about presenting to the emergency department strictly for abdominal pain, is often, patients are given opiate pain medicines which will not help her constipation, nor ultimately change the pain that she is having. diet general recommendations, [place] yogurt, about a cup per day, will provide an excellent source of protein; plain yogurt, and add some jelly, or fresh fruits if she desires; soft vegetables like to be mashed with a fork, bananas, and applesauce are excellent as well. Scrambled eggs are conservative lifestyle changes. she needs to start walking, if possible 1 to 2 miles per day. She may need to work up to this. Stress reduction techniques, yoga, meditation can be quite helpful for this as well. Status at Discharge Functional status at discharge: uses cane/walker Overall status at discharge: patient is progressing back to baseline Mental Status: mental status grossly normal Speech and Movement: speech and movement normal Mood: congruent mood Affect: normal affect Exam Narrative Exam Narrative: Neuro:alert and oriented X4 No neurological focal deficit, Resp: unlabored breathing, clear lung bilaterally Cardio: regular rhythm, S1, S2, no murmur GI: Abdomen is not distended, soft and non-tendern , bowel sounds are present Extremities: strength 5/5 to bilateral lower and upper extremities Psych: RASS 0, congruent mood and normal affect. Psych Mental Status: mental status grossly normal Speech and Movement: speech and movement normal Mood: congruent mood Affect: normal affect DS: Data Vitals/I&O Vitals and I&O: Vital Signs Temperature 36.8 C 08/03/24 08:23 Temperature Source Temporal Artery Scan 08/03/24 08:23 Pulse 76 08/03/24 08:23 Pulse Rhythm Regular 07/30/24 19:58 Pulse 97 H 07/30/24 16:20 Respiratory Rate 18 08/03/24 08:23 Respiratory Effort Normal, Non-Labored 07/30/24 19:58 Respiratory Depth Normal 07/30/24 19:58 Respiratory Pattern Normal 07/30/24 19:58 Blood Pressure 139/98 H 08/03/24 08:23 Blood Pressure Mean 111 08/03/24 08:23 Blood Pressure Position Sitting 07/30/24 12:57 Pulse Oximetry 99 08/03/24 08:23 Oxygen Delivery Method Room Air 08/03/24 08:23 Oxygen Flow Rate 0 08/03/24 08:23 Pain Level 0 08/03/24 00:05 Comment patient asked to not be woken up for vitals 08/03/24 05:20 Intake & Output 08/02/24 08/02/24 08/03/24 11:59 23:59 11:59 Intake Total 100 / 740 640 / 740 100 / 100 Output Total 1100 / 1900 800 / 1900 1400 / 1400 Balance -1000 / -1160 -160 / -1160 -1300 / -1300 Intake: IV 100 / 500 400 / 500 100 / 100 Oral 240 / 240 Output: Urine 1100 / 1900 800 / 1900 1400 / 1400 Other: Urine Color Yellow Yellow Yellow Urine Appearance Clear Clear Clear Urine Odor Strong Stool Size Smear PFSH All Active Problems (Updated 08/03/24 @ 13:39 by Nancy Cisneros APRN) Chronic vomiting (Acute) Constipation (Acute) ACP (advance care planning) (Acute) Palliative care encounter (Acute) Financial difficulties (Acute) Tarlov cyst (Acute) Discharge planning issues (Acute) Iron deficiency (Acute) Hypokalemia (Acute) Non-insulin dependent type 2 diabetes mellitus (Acute) Intractable nausea and vomiting (Acute) Hypomagnesemia (Acute) Hammertoe of left foot (Acute) Hallux varus (acquired), left foot (Acute) Metatarsalgia of left foot (Acute) Onychomycosis (Acute) Nicotine dependence, unspecified, uncomplicated (Acute) .5 ppd Decreased libido (Acute) Insomnia, unspecified (Acute) Nausea & vomiting (Acute) Hiatal hernia (Chronic) GERD (gastroesophageal reflux disease) (Chronic) Hyperlipidemia (Acute) Anxiety (Chronic) Medical History (Updated 08/03/24 @ 13:39 by Nancy Cisneros APRN) Iron deficiency anemia, unspecified Essential (primary) hypertension 05/06/22 moved to , bp wnl on no meds Abdominal pain, vomiting, and diarrhea Acute dehydration Nausea alone Emesis, persistent Hydronephrosis left CHRISTIANO (acute kidney injury) Neck pain Benign tumor of pituitary gland History of HPV infection Grief reaction Depression Shortness of breath Joint pain Low back pain History of hepatitis History of Lyme disease PTSD (post-traumatic stress disorder) Surgical History EGD - [facility] (01/13/17) Social History Smoking/Tobacco Use Status: Current every day Tobacco Type: cigarettes Years smoked: 6 Quit status: has quit before Smoking risk assessment performed?: Yes Alcohol Intake: current Alcohol Intake frequency: holidays/special occasions only Alcohol type: beer Drug use: Occasionally Substance use type: marijuana Housing: house Do you feel safe at home: Yes Do you feel safe in your relationship?: Yes Time Spent with Patient Time Spent with Patient: >85 minutes Time was spent: preparing to see the patient(eg.review tests), obtaining and/or reviewing separately otained hiistory, ordering medications,tests, procedures, referring, communicating with other health child caregiver, indepentently interpreting results, counseling the patient and care coordination
--- NOTE | 2024-08-03 12:12 | W.PM.PROGNOT ---
Date of Service Date of service: 08/03/24 Time of Service: 12:12 Assessment and Plan Assessment and plan (1) Chronic vomiting: Status: Acute Assessment and plan: Cyclical nausea and vomiting. Patient certainly does meet almost all criteria for this diagnosis. She has been thoroughly worked up from an gastroenterologic, perspective. I do not think any further imaging or procedures are warranted at this time. Counseled the patient at this afternoon for about 45 minutes, provided her with recommendations, #1 for return to the hospital. Most salience would be dehydration. Clinically for her, if she stops urinating, especially for 24 hours this would be a reason to present to the hospital. If she does develop syncope, disorientation, confusion, or falls, this certainly is another reason to present to the hospital. I did discuss with her, and caution her about presenting to the emergency department strictly for abdominal pain, is often, patients are given opiate pain medicines which will not help her constipation, nor ultimately change the pain that she is having. She does have constipation, as below, this is chronic. I recommended that she start sugar-free Metamucil, taken mixed with some cold water, and a red solo cup, and drink and immediately. Recommended she take this for 6 weeks, with 2 teaspoons each day. Ideally she will have at least 1 bowel movement per day, if it goes 3 days and she has not had a bowel movement, I recommended that she buy a fleets enema, and use this. There are several other types of enemas, soapsuds enemas, saline enemas tapwater enemas, champagne enemas, and milk of molasses enemas. Milk and molasses enemas, I have seen quite effective. As far as recommendations for her diet, I provided her with some general recommendations, Indonesian yogurt, about a cup per day, will provide an excellent source of protein. I recommended that she get plain yogurt, and add some jelly, or fresh fruits if she desires. Goal of this is to get some probiotics into her intestines, and also provide her with a good source of protein. Chicken breast or chicken thighs can be a good source as well. Likely the easiest way for this will be to get a rotisserie chicken at a local supermarket, and then remove the skin and fat if present. Soft vegetables like to be mashed with a fork are excellent is a good example this is can do creatinines. Trilla, rice, bananas, and applesauce are excellent as well. Scrambled eggs are just fine also. Did describe specifically to her the mechanism for fats, particularly heavy and saturated fats which will cause slowed intestinal transit, which she does need. Of her vomiting, I have recommended some conservative lifestyle changes. she needs to start walking, if possible 1 to 2 miles per day. She may need to work up to this. Stress reduction techniques, yoga, meditation can be quite helpful for this as well. There are certainly many online videos she can use, she also does have some resources at home for this to. Recommended she find some type of community to be involved with least once a week, either at yazidism or other local community group. Her stress, anxiety, and depression, clearly are triggers for the vomiting. Have reached out to the patient's thoracic surgeon Dr. Jabier Palmer and Leeann, still awaiting return call from him. Will plan to set her up with an appointment as an outpatient with Dr. Palmer. There is some recurrence of her hiatal hernia as it can be seen on CT scan. In my opinion if this should not be repaired, as it is a difficult procedure, and likely will not change the symptoms that patient is having. Dr. Palmer does specialize in this, and would like to obtain he is advised and allow patient to see him as an outpatient. Did discuss patient's case today with the patient's hospitalist, Nancyelliot Cisneros (2) Constipation: Status: Acute Assessment and plan: See notes as above. (3) Anxiety: Status: Chronic Assessment and plan: See notes as above. Subjective Subjective Interval history since last seen: Patient today still feeling well. Minimal abdominal pain. Exam Narrative Exam Narrative: Adult female, she is awake and alert, in no discomfort today. Objective Last Vital Signs Temp 36.8 C 08/03/24 08:23 Pulse 76 08/03/24 08:23 Resp 18 08/03/24 08:23 BP 139/98 H 08/03/24 08:23 Pulse Ox 99 08/03/24 08:23 Objective Narrative Objective Narrative: Mild hypokalemia today. Time Spent with Patient Time Spent with Patient: 35-49 minutes Time was spent: preparing to see the patient(eg.review tests), obtaining and/or reviewing separately otained hiistory, referring, communicating with other health health care marketing manager, indepentently interpreting results and counseling the patient
[2024-08-03] MEDS: Potassium Chloride 20 MEQ TABCR 40 MEQ PO (13:05)
--- NOTE | 2024-08-03 13:54 | PDOC.HHF2F ---
Home Health Referral Home Health Orders Clinical synopsis of why skilled professionals are needed: This 68-year-old female with a past medical history of hyperlipidemia, NIDDM, cyclical vomiting syndrome and known hiatal hernia presented to the emergency department with nausea and vomiting on 07/30/24 lasting over a week. In the emergency department the patient was noted to being uncomfortable due to nausea but did have otherwise normal vital signs, CBC and CMP though was noted to have some mild hypomagnesemia. She had a CT abdomen pelvis that showed known hiatal hernia it was also discovered that patient had a recent upper endoscopy at [facility] did not show any acute findings other than her known hiatal hernia. While in the emergency department the patient had Compazine, Benadryl, Zofran and Haldol without significant improvement as she had very quickly failed p.o. fluid challenge. At which time emergency room provider paged hospitalist for admission for patient with intractable nausea and vomiting. Surgical consult with Dr. Bourgeois completed with no recommendation for EGD or other intervention after review previous medical records. Dr. Bourgeois queen's counsel the paitent on care s/p discharge and will set-up follow-up at [facility] thoracic surgery with Dr. perry. The patient was able to tolerate enteral intake with antiemetic medicines with discomfort resolving with oral pain medicines. USD was positive for TCH but has not smoked cannabis since mother's day but inquired about drabinol showing in USD. The patient is hemodynamically stable and will be discharged home with home health PT, OT, nursing and FEDERAL JUDICIAL LAW CLERK. Follow-up with PCP within7 days of discharge please. Recommendation for PCP follow-up: Follow-up on progress of [facility] thoracic surgery referral with Dr. Jabier Fry swallow test Hiatal hernia Tarlov cyst Discussed with Dr. Steiner Registered Nurse: Check all that apply Instruct on new or changed medication(s)/assess compliance: Ordered Assess for exacerbation of medical condition, instruct patient/caregivers on signs and symptoms to report for early detection: Ordered Other: As per Sx counseling: #1 for return to the hospital. Most salience would be dehydration. Clinically for her, if she stops urinating, especially for 24 hours this would be a reason to present to the hospital. If she does develop syncope, disorientation, confusion, or falls, this certainly is another reason to present to the hospital. Discuss exerting caution her about presenting to the emergency department strictly for abdominal pain, is often, patients are given opiate pain medicines which will not help her constipation, nor ultimately change the pain that she is having. diet general recommendations, Slovenian yogurt, about a cup per day, will provide an excellent source of protein; plain yogurt, and add some jelly, or fresh fruits if she desires; soft vegetables like to be mashed with a fork, bananas, and applesauce are excellent as well. Scrambled eggs are conservative lifestyle changes. she needs to start walking, if possible 1 to 2 miles per day. She may need to work up to this. Stress reduction techniques, yoga, meditation can be quite helpful for this as well. Physical Therapist: Check all that apply Increase strength & endurance for safe mobility at home: Ordered To design/establish home maintenance program: Ordered Fall reduction therapy program for patient with history of frequent falls: Ordered Home safety evaluation and teaching/gait training including stair management (if applicable): Ordered Occupational Therapist: Evaluate and treat for patient unable to perform ADL/IADL/self-care: Ordered Upper extremity strengthening, range and motion: Ordered Women'S Apparel Salesperson: Assist with community resources: Ordered Assist with long distance operator care planning: Ordered Home Bound Status Requires the aid of supportive device (check all that apply): Walker Describe why leaving home would require a considerable and taxing effort: Requires frequent rest periods Encounter Date and Reason: I certify that a FTF encounter for this patient was performed on August 03, 2024 and that such encounter was related to the primary reason the patient requires home health services. The encounter was conducted in the following manner: By me as the certifying physician, STRATEGIC ACCOUNT DIRECTOR, PA or By an inpatient physician, STRATEGIC ACCOUNT DIRECTOR or PA during an inpatient stay who communicated findings to me, Certification And Authentication I certify that I composed the above information based on my clinical judgment relating to this patient's medical condition and, if applicable, clinical findings communicated to me by the NPP or inpatient physician who performed the FTF encounter. Name of Provider that will be monitoring home health services: Ben Bateman
--- NOTE | 2024-08-03 14:05 | CHAPLAIN ---
Keke was dressed and waiting to be discharged when I visited this afternoon. Her son drove up from [place] and is waiting in the parking lot for her. Keke thought she'd be discharged around noon, so he went grocery shopping for her and is waiting now to give her a ride home to [place] and then he'll return to [place]. Keke was tearful because he's having to wait so long and she can't change things. I offered a prayer with Keke.
== END 2024-08-03 14:00 | disposition home health service (06) ==
LOC: ER 18:04 → MS 18:31
PROVIDERS: Hospitalist; Physician Assistant; Admitting Provider Family Medicine; Emergency Provider Emergency Medicine; PCP Family Medicine; Responsible Provider Nurse Practitioner Acute Care; Visit Provider Family Medicine
DX: R11.15 Cyclical vomiting syndrome unrelated to migraine (principal); E83.42 Hypomagnesemia; K44.9 Diaphragmatic hernia without obstruction or gangrene; K21.9 Gastro-esophageal reflux disease without esophagitis; E11.9 Type 2 diabetes mellitus without complications; F41.9 Anxiety disorder, unspecified; F32.A Depression, unspecified; F43.10 Post-traumatic stress disorder, unspecified; Z59.9 Problem related to housing and economic circumstances, unspecified; E87.6 Hypokalemia; K59.01 Slow transit constipation; G96.191 Perineural cyst; F17.210 Nicotine dependence, cigarettes, uncomplicated; G47.00 Insomnia, unspecified; E78.5 Hyperlipidemia, unspecified; D50.9 Iron deficiency anemia, unspecified; Z79.84 Long term (current) use of oral hypoglycemic drugs; F12.90 Cannabis use, unspecified, uncomplicated
CPT/HCPCS: 00123; 36415; 80048; 80053; 80307; 83690; 85027; 93005; 96361; 96365; 96366; 96367; 96372; 96375; 96376; 97161; 97530; 99222; 99232; 99233; 99285; J1650; 74177; 81003; 81015; 83540; 83550; 83735; 84484; 85025; 93010; 99223; 99231; 99239; G0378; J0131; J1200; J1630; J2060; J2405; J2470; J3030; J3475; J3480; J3490

== ENCOUNTER 2024-08-09 14:58 | Outpatient (REF) | payer MEDICARE, MEDICAID, SELFPAY ==
[2024-08-09 18:48] LABS: Anion Gap 7.8 mmol/L (3-11); BUN 11 mg/dL (7-18); CO2 28.2 mmol/L (21.0-32.0); CREATININE 1.2 mg/dL (0.55-1.02); Calcium 10.5 mg/dL (8.5-10.1); Chloride 100 mmol/L (98-107); Glucose 127 mg/dL (74-106); Magnesium 1.9 mg/dL (1.8-2.4); Potassium 4.8 mmol/L (3.5-5.1); Sodium 136 mmol/L (136-145)
== END 2024-08-09 14:59 | disposition home or self-care (01) ==
LOC: NCHCN 14:58
PROVIDERS: PCP Family Medicine; Visit Provider Family Medicine
DX: E87.6 Hypokalemia (principal)
CPT/HCPCS: 80048; 83735

== ENCOUNTER 2024-09-08 01:20 | Outpatient (CLI) | payer MEDICARE, MEDICAID, SELFPAY ==
--- NOTE | 2024-09-08 | DI.MAMMO_ITS ---
Exam(s) MG MAMMO SCREENING 60 MIN DUR EXAM: MG MAMMO SCREENING 60 MIN DUR CLINICAL HISTORY: SCREENING MAMMO Z12.31 TECHNIQUE: Mammograms were interpreted according to the usual protocol including computer analysis with CAD system, tomosynthesis and C-view imaging. COMPARISON: 2014 through 2022 FINDINGS: The breasts are composed of heterogeneously dense fibroglandular densities, Breast Density category C. No suspicious masses or suspicious microcalcifications are seen. There is a biopsy marker clip in the medial right breast. No skin thickening or abnormal axillary lymph nodes are seen. There has been no significant change from prior exams. IMPRESSION: BI-RADS Category 1, Negative mammogram. Yearly screening mammography is recommended. Breast Density: Category C - The breasts are heterogeneously dense, which may obscure small masses. Breast density Category C or D implies that the patient has dense breast tissue. Dense breast tissue can make it harder to find cancer on a mammogram. Dense breast tissue is also associated with an increased risk of breast cancer. This information about the result of the mammogram report was provided to the patient to raise their awareness. Use this report when you speak with the patient about their risks for breast cancer, which includes their family history. At that time, you may recommend additional screening tests (Ultrasound or MRI) as these tests may add significant information. A negative radiographic report should not delay biopsy if a dominant or clinically suspicious mass is present. Up to ten percent of cancers are not identified on mammography. A negative report may reinforce clinical impression. Adenosis and dense breasts may obscure an underlying neoplasm. False positive reports average 6 to 10%.
== END 2024-09-08 01:40 ==
LOC: DI 01:20
PROVIDERS: PCP Family Medicine; Visit Provider Family Medicine
DX: Z12.31 Encounter for screening mammogram for malignant neoplasm of breast (principal); R92.333 Mammographic heterogeneous density, bilateral breasts
CPT/HCPCS: 77063; 77067

== ENCOUNTER 2024-12-08 13:41 | Outpatient (REF) | payer MEDICARE, MEDICAID, SELFPAY ==
[2024-12-08 16:21] LABS: Abs Immature Grans 0.02 10^3/uL (0.0-0.06); HCT 43.0 % (36.0-46.0); HGB 14.4 g/dL (11.2-15.7); Hemoglobin A1C 5.7 % (<5.7); Immature Grans % 0.2 %; MCH 31.1 pg (27.0-33.0); MCHC 33.5 % (32.0-36.0); MCV 93 fL (80-95); MPV 9.7 fL (8.0-11.0); Platelet Count 390 10^3/uL (130-400); RBC 4.63 10^6/uL (3.93-5.22); RDW 12.4 % (11.7-14.6); RDW-SD 42.4 fL; WBC 9.03 10^3/uL (4.4-10.8)
[2024-12-08 16:24] LABS: ESR 35 mm/hr (0-30)
[2024-12-08 16:34] LABS: ALT 25 U/L (14-59); AST 19 U/L (15-37); Albumin 4.2 g/dL (3.4-5.0); Alkaline Phosphatase 126 U/L (46-116); Anion Gap 11.9 mmol/L (3-11); BUN 14 mg/dL (7-18); Bilirubin, Total 0.5 mg/dL (0.2-1.0); CO2 26.1 mmol/L (21.0-32.0); Calcium 10.1 mg/dL (8.5-10.1); Calculated LDL 225 mg/dL (<100); Chloride 98 mmol/L (98-107); Cholesterol 333 mg/dL (<200); Estimated GFR 60.23 (mL/min/1.73m2); Glucose 119 mg/dL (74-106); HDL Cholesterol 59 mg/dL (>or=50); Potassium 4.6 mmol/L (3.5-5.1); Sodium 136 mmol/L (136-145); Total Protein 7.9 g/dL (6.4-8.2); Triglyceride 249 mg/dL (<150)
[2024-12-09 17:18] LABS: CRP, High Sensitivity 2.47 mg/L (See Note)
== END 2024-12-08 13:42 | disposition home or self-care (01) ==
LOC: NCHCN 13:41
PROVIDERS: PCP Family Medicine; Visit Provider Family Medicine
DX: Z86.79 Personal history of other diseases of the circulatory system (principal); M25.512 Pain in left shoulder; G89.29 Other chronic pain; E78.5 Hyperlipidemia, unspecified; R73.03 Prediabetes
CPT/HCPCS: 80053; 80061; 85652; 86141; 83036; 85025

== ENCOUNTER → 2025-01-24 00:21 | Outpatient (CLI) | payer MEDICARE, MEDICAID, SELFPAY ==
--- NOTE | 2025-01-24 | DI.US_ITS ---
Exam(s) US RENAL EXAM: US RENAL CLINICAL HISTORY: HYDRONEPHROSIS, N13.30. TECHNIQUE: Martin scale imaging and color doppler were used. COMPARISON: CT CT ABDOMEN PELVIS W from 07/30/2024 FINDINGS: Right kidney: 9.7 by 5.1 x 5.3cm Echogenicity: Normal Hydronephrosis: No Cyst or mass: No Nephrolithiasis: No Left kidney: 5.2 x 2.2 x 3.1cm Echogenicity: Normal Hydronephrosis: No Cyst or mass: No Nephrolithiasis: No Bladder:Normal. Both ureteral jets were visualized Prevoid vol:158 cc Postvoid vol:0 cc IMPRESSION: Atrophic left kidney. No evidence of hydronephrosis of either kidney. DATA REPOSITORY:
== END ==
PROVIDERS: PCP Family Medicine; Visit Provider Family Medicine
DX: N28.89 Other specified disorders of kidney and ureter (principal)
CPT/HCPCS: 76770